=== PATIENT | female | born 1970 | race Caucasian/White ===

== ENCOUNTER 2019-10-16 07:18 | Outpatient (CLI) | payer BC, SELFPAY ==
--- NOTE | ~2019-10-16 | MR_ITS ---
EXAMINATION: MR brain/brain stem wo/w con DATE: 10/16/2019 09:27 INDICATION: Dizziness TECHNIQUE: Magnetic resonance imaging (MRI) of the brain and brainstem was performed without and with 15 cc MultiHance intravenous contrast. Sequences included sagittal and axial T1-weighted SE, axial d iffusion-weighted FS SE, axial T2*-weighted GRE, axial T2-weighted FLAIR Propeller, and axial T2-weig hted Propeller. Apparent diffusion coefficient (ADC) maps were created. COMPARISON: CT brain dated 11/29/2014 FINDINGS: Normal brain parenchymal volume. Normal cavanaugh-white differentiation. No evidence for acute i nfarction, hemorrhage, mass or mass effect. No abnormal contrast enhancement. There are scattered mil d periventricular and subcortical white matter changes, most likely related to small vessel ischemic disease (microangiopathy). There are are small mucous retention cysts in the frontal sinuses. No vent riculomegaly or midline shift. Midline sagittal images are unremarkable. IMPRESSION: 1. No acute intracranial abnormality. 2: Chronic age-related findings. Reviewed, dictated and finalized at location A.
[2019-10-16 08:49] LABS: Estimated Glomerular Filt Rate > 60
== END 2019-10-16 07:19 | disposition home or self-care (01) ==
LOC: ANHIMG 07:22
PROVIDERS: PCP Internal Medicine; Visit Provider Internal Medicine Rheumatology
DX: R42 Dizziness and giddiness (principal)
CPT/HCPCS: 36415; 70553; A9577

== ENCOUNTER → 2020-03-31 14:36 | Outpatient (CLI) | payer BC, SELFPAY ==
--- NOTE | ~2020-03-31 | MM_ITS ---
EXAMINATION: MM screening [facility] BI w farzaneh HISTORY: Screening mammogram TECHNIQUE: Craniocaudal and mediolateral oblique 3-D tomosynthesis images were obtained and synthetic 2-D images were generated. CAD analysis was submitted and interpreted. COMPARISON: 08/15/2018, 07/23/2018, 11/14/2014 BREAST PARENCHYMAL COMPOSITION: The breasts are heterogeneously dense, which may obscure small masses . FINDINGS: There is no evidence of suspicious mass, calcification, or architectural distortion to sugg est malignancy in either breast. There has been no suspicious interval change. IMPRESSION: 1. No mammographic evidence of malignancy. 2. Recommend routine screening mammography in one year. BI-RADS Category 1: Negative Reviewed, dictated and finalized at location A.
== END ==
PROVIDERS: PCP Internal Medicine; Visit Provider Nurse Practitioner Obstetrics & Gynecology
DX: Z12.31 Encounter for screening mammogram for malignant neoplasm of breast (principal)
CPT/HCPCS: 77063; 77067

== ENCOUNTER 2020-04-07 00:49 | Outpatient (CLI) | payer BC, SELFPAY ==
[2020-04-07 18:12] LABS: SARS-CoV-2 RNA PCR Negative
== END 2020-04-07 00:50 | disposition home or self-care (01) ==
LOC: ANHCOVIDDT 00:49
PROVIDERS: PCP Internal Medicine; Visit Provider Obstetrics & Gynecology
DX: Z01.812 Encounter for preprocedural laboratory examination (principal); Z20.828 Contact with and (suspected) exposure to other viral communicable diseases
CPT/HCPCS: 87635; C9803; U0003

== ENCOUNTER 2020-04-09 02:58 | Day surgery (SDC) | payer BC, SELFPAY ==
[2020-03-26 13:10] VITALS: BMI 24.3
[2020-04-09] VITALS (8 sets, daily range): BP systolic 101–127; BP diastolic 64–80; PULSE 82–97; RESP 12–20; TEMP 36.1–36.7; O2SAT 99–100
[2020-04-09] MEDS: LACTATED RINGERS 1,000 ML 30 ML IV CONT (09:25)
[2020-04-09 09:36] LABS: Hematocrit 38.2 % (37.0-47.0)
--- NOTE | 2020-04-09 09:38 | P.PNAN_ITS ---
Anes - Initial Pre Proc Eval Procedure: Operation Date: 04/09/20 10:45 Proposed Procedures p Laparoscopic Tubal Ligation - Willem Patel MD s Hysteroscopy, Endometrial Ablation With Marielos - Willem Patel MD Date/Time: 04/09/20 09:38 Surgeon: Willem Patel MD Pre Op Diagnosis: Menorrhagia Patient Data Age: 50 Gender: F Height: 5 ft 8 in Weight: 72.57 kg Allergies Allergy/AdvReac Type Severity Reaction Status Date / Time Sulfa (Sulfonamide Allergy Mild Rash Unverified 03/26/20 13:10 Antibiotics) Home Medications Medication Instructions Recorded Confirmed Type loratadine 10 mg PO DAILY 03/26/20 03/26/20 History lorazepam 0.5 mg PO DIRECTED PRN 03/26/20 03/26/20 History Laboratory Tests 04/09/20 09:19 Hgb 13.0 g/dL g/dL (12.0-15.0) Hct 38.2 % % (37.0-47.0) Patient hx anesthesia problems: none Family hx anesthesia problems: none [facility] Past Medical History Medical History (Updated 04/09/20 @ 09:41 by Kale Carrasco MD) Anxiety Fibromyalgia Social History Social History Smoking status: Never smoker Spiritual care concerns: No Anes - Eval Final PreProcedure Day of Procedure 04/09/20 09:38 Patient weight: normal Heart: regular rate and rhythm Lungs: clear to auscultation Airway: Mallampati scale class II Neurological: alert and oriented Last oral intake: >/= 8 hours ASA classification: II Emergent: no Anesthetic plan: proceed Anesthesia type and monitoring: general ETT and standard monitoring Informed Consent: The patient's anesthetic plan and its attendant risks and benefits were discussed with the patient/family/POA. Questions were solicited and answers provided to the satisfaction of the patient/family/POA.
[2020-04-09] MEDS: KETOROLAC 15 MG/ML VIAL (*BKC) IV PUSH (09:39)
[2020-04-09] MEDS: ACETAMINOPHEN 500 MG TABLET 1000 MG PO (09:39)
--- NOTE | 2020-04-09 10:24 | WPDHPUPDATE1 ---
History and Physical Update Update Date/Time: 04/09/20 10:24 with the above mentioned procedures, a cauterization of the cervix will be performed. History and Physical has been reviewed, including an updated exam of the patient. There are NO changes in the patient's condition. Risks, benefits, and alternatives have been discussed and questions answered. Patient agrees to proceed with procedure.
--- NOTE | 2020-04-09 12:08 | P.OP_ITS ---
Procedure Note - Detailed Date of procedure: 04/09/20 Pre-op diagnosis: Menorrhagia Cervical BLeeding, Unwanted Fertility Post-op diagnosis: same Procedure performed: Laparoscopic bilateral tubal ligation, endometrial ablation with hysteroscopy, resection of endocervix. Description of procedure: Patient was taken the operating room. She has prepped draped in the dorsal lithotomy position after induction of general anesthesia. A 5 mm abdominal incision was made in left upper quadrant of the abdomen with scalpel. A 5 mm trocars inserted the intra-abdominal cavity under direct visualization of the scope. Pneumoperitoneum was achieved. A 5 mm periumbilical incision was made using a scalpel on the abdominal scan. A 5 mm trocar was inserted the intra-abdominal cavity under visualization of the scope. The fallopian tube was grasped with the bipolar cautery in the ampullary region. It was completely desiccated in a 1.5 cm area of the fallopian tube. This was performed in identical fashion on the contralateral side. The instruments were withdrawn. The pneumoperitoneum was reduced. The trocars were removed. The skin was closed with subcuticular 4 Monocryl. This incisions were covered with Dermabond. Our attention was then turned to the endometrial ablation portion of the procedure. A speculum was placed in the vagina. The cervix was grasped with a tenaculum. The cervix was dilated to approximately 8 mm with Oliveira dilators. The hysteroscope was inserted. And the below findings were noted. Measurements of the cervix were taken using the uterine sound and the hysteroscope. The intr auterine cavity measurements were entered into the hand piece of the device. The device was inserted the intrauterine cavity. The array was expanded. The balloon cuff was inflated. The uterus was airtight. The energy and safety cycles within initiated. They were completed under 3 minutes. The balloon cuff was collapsed, the array was collapsed, and the device was removed the uterine cavity. the hysteroscope was reinserted and the cavity was well desiccated, it was clearly observed. Hysteroscope was withdrawn. The tenaculum was removed. Using a long squared LEEP electrode , the endocervix was excised. Two passes were made with the electrode. 1 was more superficial , but extended about 1 cm into the cervix. The 2nd extended the original incision down into the endocervix. The ball cautery was then used to cauterize all cut surfaces. Monsel's was packed into the cervix. The cervix was hemostatic. The speculum was removed. The patient tolerated the procedure well. She was taken to recover room in stable condition. Anesthesia: GETA Surgeon: Willem Patel MD Estimated blood loss (mL): 20 Drains: No Packing: No Pathology: none sent Complications: No immediate complications Condition: stable Disposition: PACU Findings: Normal female pelvic anatomy. External surface of the cervix appeared normal. The internal surface of the cervix was friable when examined with the hysteroscope. The intrauterine cavity appeared normal. The fallopian tubes ovaries and uterus appeared normal.
[2020-04-09] MEDS: oxyCODONE HCL (*CRX) 5 MG TAB IR PO (13:11)
[2020-04-09] MEDS: fentaNYL CITRATE INJ (*CRX) 100 MCG/2 ML VIAL 25 MCG IV PUSH (13:33)
== END 2020-04-09 14:18 | disposition home or self-care (01) ==
PROVIDERS: Anesthesiology; PCP Internal Medicine; Visit Provider Obstetrics & Gynecology
PROC: (CPT 58671; principal; 2020-04-09 10:45)
PROC: 0U5B8ZZ Destruction of Endometrium, Via Natural or Artificial Opening Endoscopic (ICD-10-PCS; CPT 58563; 2020-04-09 10:45)
DX: N92.0 Excessive and frequent menstruation with regular cycle (principal); Z30.2 Encounter for sterilization; R87.612 Low grade squamous intraepithelial lesion on cytologic smear of cervix (LGSIL); M79.7 Fibromyalgia; F41.9 Anxiety disorder, unspecified
CPT/HCPCS: 58670; 57522; 58563; 36415; 85014; 85018; 88305; A9270; J0330; J1100; J1885; J2250; J2405; J2704; J3010; J7030; J7120

== ENCOUNTER 2020-04-30 12:58 | Outpatient (CLI) | payer BC, SELFPAY ==
[2020-04-30 22:40] LABS: SARS-CoV-2 RNA PCR Negative
== END 2020-04-30 12:59 | disposition home or self-care (01) ==
LOC: CHSLAB 13:00
PROVIDERS: PCP Internal Medicine; Visit Provider Internal Medicine
DX: Z20.828 Contact with and (suspected) exposure to other viral communicable diseases (principal)
CPT/HCPCS: 87635; C9803; U0003

== ENCOUNTER 2021-04-23 07:31 | Outpatient (CLI) | payer OTHER, SELFPAY ==
[2021-04-23 07:43] LABS: Basophils Absolute Auto 0.03 K/mm3 (0.00-0.10); Basophils Percent Auto 0.6 % (0.0-1.0); Eosinophils Absolute Auto 0.13 K/mm3 (0.02-0.50); Eosinophils Percent Auto 2.5 % (1.0-6.0); Hematocrit 41.2 % (35.0-49.0); Hemoglobin 13.8 g/dL (12.0-15.0); Immature Granulocyte Absolute 0.01 K/mm3 (0.00-0.00); Immature Granulocyte Percent A 0.2 % (0.0-0.0); Lymphocytes Absolute Auto 1.65 K/mm3 (1.10-4.50); Mean Corpuscular HGB Conc 33.5 g/dL (32.0-36.0); Mean Corpuscular Hemoglobin 32.3 pg (27.0-31.0); Mean Corpuscular Volume 96.5 fL (78.0-102.0); Mean Platelet Volume 9.2 fl (9.2-11.8); Monocytes Absolute Auto 0.32 K/mm3 (0.10-0.90); Monocytes Percent Auto 6.2 % (2.0-11.0); Neutrophils Percent Auto 58.5 % (50.0-70.0); Platelet Count Result 252 K/mm3 (150-420); Red Blood Count 4.27 M/mm3 (4.20-5.40); Red Cell Distribution Width 12.7 % (11.6-14.4); White Blood Count 5.2 K/mm3 (4.8-10.8)
[2021-04-23 08:48] LABS: Alanine Aminotransferase 37 U/L (14-59); Albumin Level 3.6 g/dL (3.4-5.0); Alkaline Phosphatase 80 U/L (46-116); Anion Gap 9 mmol/L (8-16); Aspartate Amino Transferase 26 U/L (15-37); Bilirubin,Total 0.4 mg/dL (0.00-1.00); Blood Urea Nitrogen 12 mg/dL (7-18); Calcium 8.8 mg/dL (8.5-10.1); Carbon Dioxide 28 mmol/L (21-32); Chloride 101 mmol/L (98-108); Cholesterol 212 mg/dL (0-200); Estimated Glomerular Filt Rate 60; Glucose 82 mg/dL (70-99); HDL Direct 71 mg/dL (40-60); LDL Cholesterol Calculated 129 mg/dL (<130); Osmolality Calculated 284 mOsm/kg (285-295); Potassium 4.4 mmol/L (3.5-5.1); Sodium 138 mmol/L (136-145); Total Protein 6.9 g/dL (6.4-8.2); Triglycerides 62 mg/dL (0-150); Vitamin B12 751 pg/mL (193-986)
[2021-04-23 08:50] LABS: Folic Acid > 20.0 ng/mL (8.6->20); Thyroid Stimulating Hormone Reflex 2.21 u/IU/mL (0.36-3.74)
[2021-04-27 03:11] LABS: Vitamin D 25 Hydroxy 37 ng/mL (30-100)
== END 2021-04-23 07:32 | disposition home or self-care (01) ==
LOC: CHSLAB 07:34
PROVIDERS: PCP Internal Medicine; Visit Provider Psychiatry & Neurology Psychiatry
DX: F33.2 Major depressive disorder, recurrent severe without psychotic features (principal)
CPT/HCPCS: 36415; 80053; 80061; 82306; 82607; 82746; 84443; 85025

== ENCOUNTER → 2021-05-07 09:37 | Outpatient (CLI) | payer OTHER, SELFPAY ==
--- NOTE | ~2021-05-07 | MM_ITS ---
EXAMINATION: MM screening [facility] BI w farzaneh HISTORY: Screening TECHNIQUE: Craniocaudal and mediolateral oblique 3-D tomosynthesis images were obtained and synthetic 2-D images were generated. CAD analysis was submitted and interpreted. COMPARISON: Comparison to multiple prior studies sequentially, with oldest reviewed study dated 06/03. BREAST PARENCHYMAL COMPOSITION: There are scattered areas of fibroglandular density. FINDINGS: There is no evidence of suspicious mass, calcification, or architectural distortion to sugg est malignancy in either breast. There has been no suspicious interval change. IMPRESSION: 1. No mammographic evidence of malignancy. 2. Recommend routine screening mammography in one year. BI-RADS Category 1: Negative Reviewed, dictated and finalized at location A.
== END ==
PROVIDERS: Visit Provider Nurse Practitioner Obstetrics & Gynecology
DX: Z12.31 Encounter for screening mammogram for malignant neoplasm of breast (principal)
CPT/HCPCS: 77063; 77067

== ENCOUNTER 2021-11-09 14:24 | Outpatient (CLI) | payer OTHER, SELFPAY ==
--- NOTE | ~2021-11-09 | XR_ITS ---
EXAMINATION: XR chest 2V DATE: 11/09/2021 14:42 INDICATION: Cough TECHNIQUE: PA and lateral views of the chest are obtained. COMPARISON: None available FINDINGS: The lungs are free of acute opacities. There is no pleural effusion or pneumothorax. The ca rdiomediastinal silhouette is normal. There is mild thoracic spondylosis. IMPRESSION: 1. No acute cardiopulmonary abnormality. Reviewed, dictated and finalized at location A.
[2021-11-09 15:00] LABS: Basophils Absolute Auto 0.03 K/mm3 (0.00-0.10); Basophils Percent Auto 0.3 % (0.0-1.0); Eosinophils Absolute Auto 0.37 K/mm3 (0.02-0.50); Hematocrit 40.9 % (35.0-49.0); Hemoglobin 13.6 g/dL (12.0-15.0); Immature Granulocyte Absolute 0.05 K/mm3 (0.00-0.00); Immature Granulocyte Percent A 0.5 % (0.0-0.0); Lymphocytes Absolute Auto 2.11 K/mm3 (1.10-4.50); Lymphocytes Percent Auto 22.7 % (18.0-42.0); Mean Corpuscular HGB Conc 33.3 g/dL (32.0-36.0); Mean Corpuscular Hemoglobin 32.5 pg (27.0-31.0); Mean Corpuscular Volume 97.6 fL (78.0-102.0); Mean Platelet Volume 8.8 fl (9.2-11.8); Monocytes Absolute Auto 0.64 K/mm3 (0.10-0.90); Monocytes Percent Auto 6.9 % (2.0-11.0); Neutrophils Absolute Auto 6.1 K/mm3 (1.7-7.2); Neutrophils Percent Auto 65.6 % (50.0-70.0); Platelet Count Result 259 K/mm3 (150-420); Red Blood Count 4.19 M/mm3 (4.20-5.40); Red Cell Distribution Width 12.3 % (11.6-14.4); White Blood Count 9.3 K/mm3 (4.8-10.8)
[2021-11-09 15:17] LABS: Alanine Aminotransferase 46 U/L (14-59); Albumin Level 3.6 g/dL (3.4-5.0); Alkaline Phosphatase 104 U/L (46-116); Anion Gap 6 mmol/L (8-16); Aspartate Amino Transferase 29 U/L (15-37); Bilirubin,Total 0.3 mg/dL (0.00-1.00); Blood Urea Nitrogen 10 mg/dL (7-18); Carbon Dioxide 28 mmol/L (21-32); Chloride 100 mmol/L (98-108); Estimated Glomerular Filt Rate > 60; Glucose 84 mg/dL (70-99); Osmolality Calculated 276 mOsm/kg (285-295); Potassium 3.9 mmol/L (3.5-5.1); Sodium 134 mmol/L (136-145); Total Protein 7.5 g/dL (6.4-8.2)
== END 2021-11-09 14:25 | disposition home or self-care (01) ==
LOC: CHSIMG 14:25
PROVIDERS: PCP Internal Medicine; Visit Provider Internal Medicine
DX: R05.9 Cough, unspecified (principal)
CPT/HCPCS: 36415; 71046; 80053; 85025

== ENCOUNTER 2022-01-09 13:06 | Emergency (ER) | payer OTHER, SELFPAY ==
[2022-01-09 13:15] VITALS: BP 102/49; PULSE 85; RESP 19; TEMP 36.7; O2SAT 100
--- NOTE | 2022-01-09 13:19 | ED.UPPEXIN ---
HPI - Extremity Injury (Upper) General Stated Complaint: fever/fatigue Time Seen by Provider: 01/09/22 13:19 Related Data Home Medications Medication Instructions Recorded Confirmed loratadine 10 mg tablet 10 mg PO DAILY 03/26/20 04/09/20 lorazepam 0.5 mg tablet 0.5 mg PO DIRECTED PRN Anxiety 03/26/20 04/09/20 Allergies Allergy/AdvReac Type Severity Reaction Status Date / Time Sulfa (Sulfonamide Allergy Mild Rash Verified 04/09/20 10:01 Antibiotics) PMFSH Past Medical History Medical History (Updated 04/09/20 @ 09:41 by Kale Carrasco MD) Anxiety Fibromyalgia Social History Social History Smoking status: Never smoker Spiritual care concerns: No Discharge Plan Discharge Prescriptions: No Action lorazepam 0.5 mg tablet 0.5 mg PO DIRECTED PRN (Reason: Anxiety) loratadine 10 mg Tablet 10 mg PO DAILY hydrocodone-acetaminophen 5-325 mg tablet 1 - 2 tablet PO Q4H PRN (Reason: pain) Qty: 20 0RF Follow-up/Referrals: Rhina Gabriel MD [Primary Care Provider] -
[2022-01-09 13:59] LABS: Influenza A QL RT-PCR Negative (Negative); Influenza B QL RT-PCR Negative (Negative); SARS-CoV-2 RNA PCR Positive (Negative)
--- NOTE | 2022-01-09 14:04 | ED.URI ---
HPI - URI/Sore Throat General Chief Complaint: Fever Stated Complaint: fever/fatigue Time Seen by Provider: 01/09/22 13:19 Source: patient and RN notes reviewed Mode of arrival: ambulatory Limitations: no limitations History of Present Illness MD elicited complaint: fever, sore throat and nasal congestion Onset (ago): day(s) (1) Consistency: constant Severity: moderate Able to tolerate fluids by mouth: Yes Exacerbating factors: nothing Relieving factors: nothing Context: sick contacts Associated symptoms: fever, chills, myalgias, headache, nasal congestion and sore throat Treatments prior to arrival: none Related Data Home Medications Medication Instructions Recorded Confirmed buspirone 15 mg tablet 1 tablet PO DAILY 01/09/22 01/09/22 quetiapine 25 mg tablet 1.5 tablet PO DAILY PRN Anxiety 01/09/22 01/09/22 quetiapine 50 mg tablet 1 tablet PO HS 01/09/22 01/09/22 venlafaxine 150 mg 1 cap PO DAILY 01/09/22 01/09/22 capsule,extended release 24 hr Allergies Allergy/AdvReac Type Severity Reaction Status Date / Time Sulfa (Sulfonamide Allergy Mild Rash Verified 01/09/22 14:07 Antibiotics) Review of Systems Review of Systems: All systems reviewed & are unremarkable except as noted in HPI and below Respiratory: Respiratory: Denies cough and Denies dyspnea Gastrointestinal: Gastrointestinal: Denies diarrhea, Denies nausea and Denies vomiting PMFSH Past Medical History Medical History (Updated 01/09/22 @ 14:07 by Oliverio Potter MD) Anxiety Fibromyalgia Social History Social History Smoking status: Never smoker Spiritual care concerns: No Exam Const: General: healthy appearing, no acute distress and alert Nutritional Appearance: well nourished Orientation/consciousness: patient oriented x3 Other: 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 HENMT: Head: normal to inspection Ears: external ears normal Eyes: Conjunctivae: conjunctivae normal Pupils: Equal, round and reactive pupils present EOM: EOMs intact bilaterally Neck: Neck: normal visual inspection Resp: Effort & Inspection: normal respiratory effort Auscultation: clear to auscultation bilaterally Cardio: Rate: regular rate Rhythm: regular rhythm GI: GI Palp: Yes Soft to palpation and No Tenderness to palpation present (GI) Auscultation: normal bowel sounds Back/Spine/Pelvis: Cervical Spine: cervical ROM normal Thoracic/Lumbar Spine: thoraco-lumbar ROM normal Skin: General skin exam: normal color Rashes: no rashes Neuro: General: patient oriented x3, moves all extremities, no focal motor deficits and CN's II-XI intact bilaterally Speech: normal speech Gait exam (Neuro): Normal gait present Extrem: General: normal to inspection and no clubbing, cyanosis or edema Psych: Mental Status: mental status grossly normal Affect: normal affect Attitude: cooperative Course Vital Signs Vital signs: Vital Signs Temperature 36.7 C 01/09/22 13:15 Pulse Rate 85 01/09/22 13:15 Respiratory Rate 19 01/09/22 13:15 Blood Pressure 102/49 L 01/09/22 13:15 Pulse Oximetry 100 01/09/22 13:15 Oxygen Delivery Room Air 01/09/22 13:15 Temperature 36.7 C 01/09/22 14:19 Pulse Rate 82 01/09/22 14:19 Respiratory Rate 20 01/09/22 14:19 Blood Pressure 110/50 L 01/09/22 14:19 Pulse Oximetry 100 01/09/22 14:19 Oxygen Delivery Room Air 01/09/22 14:19 MDM - URI/Sore Throat Lab Data Attestation: I reviewed the patient's lab results. Labs: Lab Results 01/09/22 Range/Units 13:20 Influenza A (RT-PCR) Negative (Negative) Influenza B (RT-PCR) Negative (Negative) SARS-CoV-2 RNA (RT-PCR) Positive A (Negative) Discharge Plan Discharge Clinical Impression: COVID-19 Patient Disposition: Home, Self-Care Condition: Stable Instructions: COVID-19 (Coronavirus Disease 2019) (ED) Additional Instructions: drink plenty o
[2022-01-09 14:19] VITALS: BP 110/50; PULSE 82; RESP 20; TEMP 36.7; O2SAT 100
== END 2022-01-09 14:23 | disposition home or self-care (01) ==
PROVIDERS: Emergency Provider Emergency Medicine; PCP Internal Medicine
DX: U07.1 COVID-19 (principal)
CPT/HCPCS: 87502; 99283; C9803; U0003; U0005

== ENCOUNTER 2022-02-20 07:55 | Outpatient (CLI) | payer OTHER, SELFPAY ==
[2022-02-20 08:18] LABS: Basophils Absolute Auto 0.03 K/mm3 (0.00-0.10); Basophils Percent Auto 0.5 % (0.0-1.0); Eosinophils Percent Auto 3.7 % (1.0-6.0); Hematocrit 36.9 % (35.0-49.0); Hemoglobin 12.4 g/dL (12.0-15.0); Immature Granulocyte Absolute 0.03 K/mm3 (0.00-0.00); Immature Granulocyte Percent A 0.5 % (0.0-0.0); Lymphocytes Percent Auto 31.1 % (18.0-42.0); Mean Corpuscular HGB Conc 33.6 g/dL (32.0-36.0); Mean Corpuscular Hemoglobin 33.5 pg (27.0-31.0); Mean Corpuscular Volume 99.7 fL (78.0-102.0); Monocytes Percent Auto 7.3 % (2.0-11.0); Neutrophils Absolute Auto 3.1 K/mm3 (1.7-7.2); Neutrophils Percent Auto 56.9 % (50.0-70.0); Platelet Count Result 227 K/mm3 (150-420); Red Cell Distribution Width 13.1 % (11.6-14.4); White Blood Count 5.5 K/mm3 (4.8-10.8)
[2022-02-20 08:33] LABS: Hemoglobin A1C 5.3 % (<5.7)
[2022-02-20 09:12] LABS: Alanine Aminotransferase 31 U/L (14-59); Albumin Level 3.4 g/dL (3.4-5.0); Alkaline Phosphatase 83 U/L (46-116); Anion Gap 5 mmol/L (8-16); Aspartate Amino Transferase 21 U/L (15-37); Bilirubin,Total 0.4 mg/dL (0.00-1.00); Blood Urea Nitrogen 15 mg/dL (7-18); Calcium 8.7 mg/dL (8.5-10.1); Carbon Dioxide 29 mmol/L (21-32); Chloride 104 mmol/L (98-108); Cholesterol 203 mg/dL (0-200); Estimated Glomerular Filt Rate > 60; Folic Acid 14.1 ng/mL (8.6->20); Glucose 86 mg/dL (70-99); HDL Direct 71 mg/dL (40-60); LDL Cholesterol Calculated 114 mg/dL (<130); Osmolality Calculated 285 mOsm/kg (285-295); Potassium 3.9 mmol/L (3.5-5.1); Sodium 138 mmol/L (136-145); Thyroid Stimulating Hormone 2.52 uIU/mL (0.36-3.74); Total Protein 6.8 g/dL (6.4-8.2); Triglycerides 91 mg/dL (0-150); Vitamin B12 684 pg/mL (193-986)
[2022-02-23 16:16] LABS: Vitamin D 25 Hydroxy 39 ng/mL (30-100)
[2022-02-24 12:27] LABS: Insulin Level Total 2.7 uIU/mL (<=19.6)
== END 2022-02-20 07:56 | disposition home or self-care (01) ==
LOC: CHSLAB 07:56
PROVIDERS: PCP Internal Medicine; Visit Provider Psychiatry & Neurology Psychiatry
DX: F33.2 Major depressive disorder, recurrent severe without psychotic features (principal)
CPT/HCPCS: 36415; 80053; 80061; 82306; 82607; 82746; 83036; 83525; 84443; 85025

== ENCOUNTER 2022-03-17 15:08 | Outpatient (CLI) | payer OTHER, SELFPAY ==
--- NOTE | ~2022-03-17 | US_ITS ---
EXAMINATION: US thyroid DATE: 03/17/2022 15:47 INDICATION: Enlarged thyroid TECHNIQUE: Multiple ultrasound images of the thyroid were obtained. COMPARISON: None. FINDINGS: The right thyroid lobe measures 4.9 x 1.3 x 1.3 cm. The left thyroid lobe measures 3.8 x 0.9 x 0.8 c m. Thyroid isthmus measures 405 mm in maximal thickness. No discrete nodules identified. There is nor mal echotexture, echogenicity and vascular flow throughout the thyroid gland. Normal-sized left jugul ar chain lymph nodes measuring up to 5-6 mm in maximal short axis diameter IMPRESSION: 1. Normal thyroid. Reviewed, dictated and finalized at location A. IMPRESSION: 1. Normal thyroid.
== END 2022-03-17 15:09 | disposition home or self-care (01) ==
LOC: CHSIMG 15:09
PROVIDERS: PCP Internal Medicine; Visit Provider Internal Medicine
DX: R22.1 Localized swelling, mass and lump, neck (principal)
CPT/HCPCS: 76536

== ENCOUNTER → 2022-05-14 09:57 | Outpatient (CLI) | payer OTHER, SELFPAY ==
--- NOTE | ~2022-05-14 | MM_ITS ---
EXAMINATION: MM screening [facility] BI w farzaneh HISTORY: Screening mammogram TECHNIQUE: Craniocaudal and mediolateral oblique 3-D tomosynthesis images were obtained and synthetic 2-D images were generated. Bilateral rotated lateral CC views. CAD analysis was submitted and interp reted. COMPARISON: 05/2021, 03/23/2020 bilateral screening mammogram examinations BREAST PARENCHYMAL COMPOSITION: There are scattered areas of fibroglandular density. FINDINGS: Stable fibroglandular asymmetry. There is no evidence of suspicious mass, calcification, or architectural distortion to suggest malignancy in either breast. There has been no suspicious interv al change. IMPRESSION: 1. No mammographic evidence of malignancy. 2. Recommend routine screening mammography in one year. BI-RADS Category 2: Benign finding(s). Reviewed, dictated and finalized at location A. 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
== END ==
PROVIDERS: PCP Internal Medicine; Visit Provider Nurse Practitioner Obstetrics & Gynecology
DX: Z12.31 Encounter for screening mammogram for malignant neoplasm of breast (principal)
CPT/HCPCS: 77063; 77067

== ENCOUNTER → 2023-07-06 14:48 | Outpatient (CLI) | payer OTHER, SELFPAY ==
--- NOTE | ~2023-07-06 | MM_ITS ---
EXAMINATION: MM screening [facility] w farzaneh HISTORY: Screening mammogram, family history of breast cancer in her mother. TECHNIQUE: Craniocaudal and mediolateral oblique 3-D tomosynthesis images were obtained and synthetic 2-D images were generated. CAD analysis was submitted and interpreted. COMPARISON: 05/14/2022, 05/07/2021, 03/31/2020 BREAST PARENCHYMAL COMPOSITION: There are scattered areas of fibroglandular density. FINDINGS: No suspicious mass, calcification, or architectural distortion are identified in either lorenzo ast to suggest malignancy. There has been no suspicious interval change. IMPRESSION: 1. No mammographic evidence of malignancy. 2. Recommend routine screening mammography in one year. BI-RADS Category 1: Negative Reviewed, dictated and finalized at location A. 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
== END ==
PROVIDERS: PCP Nurse Practitioner Obstetrics & Gynecology; Visit Provider Nurse Practitioner Obstetrics & Gynecology
DX: Z12.31 Encounter for screening mammogram for malignant neoplasm of breast (principal)
CPT/HCPCS: 77063; 77067

== ENCOUNTER 2024-02-01 12:40 | Outpatient (CLI) | payer OTHER, SELFPAY ==
--- NOTE | 2024-02-01 14:30 | NEURO_ITS ---
Impression: # Complains of left upper extremity discomfort. Not diabetic. # Normal Nerve Conduction Study, no Carpal Tunnel Syndrome or ulnar neuropathy. # Normal needle/EMG exam. # Clinical correlation recommended. Nerve Conduction Studies Anti Sensory Summary Table Stim Site NR Peak (ms) P-T Amp (?V) Site1 Site2 Delta-P (ms) Dist (cm) Emmanuel (m/s) Left Median Anti Sensory (2-3nd Digit) Wrist 2.7 80.4 Wrist 2-3nd Digit 2.7 14.0 52 Wrist 2.6 86.7 Wrist 2-3nd Digit 2.7 14.0 52 Left Radial Anti Sensory (Base 1st Digit) Wrist 2.0 42.5 Wrist Base 1st Digit 2.0 0.0 Left Ulnar Anti Sensory (5th Digit) Wrist 2.5 65.0 Wrist 5th Digit 2.5 14.0 56 Motor Summary Table Stim Site NR Onset (ms) O-P Amp (mV) Site1 Site2 Delta-0 (ms) Dist (cm) Emmanuel (m/s) Left Median Motor (Abd Poll Brev) Wrist 2.9 6.0 Elbow Wrist 4.8 29.0 60 Elbow 7.7 5.0 Left Ulnar Motor (Abd Dig Minimi) Wrist 2.7 7.1 A Elbow Wrist 5.1 30.0 59 A Elbow 7.8 5.7 F Wave Studies NR F-Lat (ms) L-R F-Lat (ms) Left Median (Mrkrs) (Abd Poll Brev) 25.70 Left Ulnar (Mrkrs) (Abd Dig Min) 26.43 EMG Side Muscle Nerve Root Ins Act Fibs Amp Dur Recrt Comment Left 1stDorInt Ulnar C8-T1 Nml Nml Nml Nml Nml Left Ext Indicis Radial (Post Int) C7-8 Nml Nml Nml Nml Nml Left Ext Digitorum Radial (Post Int) C7-8 Nml Nml Nml Nml Nml Left BrachioRad Radial C5-6 Nml Nml Nml Nml Nml Left PronatorTeres Median C6-7 Nml Nml Nml Nml Nml Left Abd Poll Brev Median C8-T1 Nml Nml Nml Nml Nml Left ABD Dig Min Ulnar C8-T1 Nml Nml Nml Nml Nml Left Biceps Musculocut C5-6 Nml Nml Nml Nml Nml Left Triceps Radial C6-7-8 Nml Nml Nml Nml Nml Left Deltoid Axillary C5-6 Nml Nml Nml Nml Nml MTDD
== END 2024-02-01 12:41 | disposition home or self-care (01) ==
PROVIDERS: PCP Nurse Practitioner Obstetrics & Gynecology; Visit Provider Internal Medicine Rheumatology
DX: G54.2 Cervical root disorders, not elsewhere classified (principal)
CPT/HCPCS: 95886; 95909

== ENCOUNTER 2024-02-13 12:51 | Outpatient (CLI) | payer OTHER, SELFPAY ==
--- NOTE | ~2024-02-13 | MR_ITS ---
EXAMINATION: MR cervical spine wo/w con DATE: 02/13/2024 13:47 INDICATION: Left cervical root neuropathy. Neck pain. Left arm pain. TECHNIQUE: Magnetic resonance imaging (MRI) of the cervical spine was performed without and with 13 m L MultiHance intravenous contrast. COMPARISON: None. FINDINGS: There is mild kyphosis of cervical spine. Vertebral body heights are normal. There is 2 mm retrolisthesis of C4 on C5. There is moderately decreased disc height at C4-C5 and mildly decreased d isc height at C5-C6 and C6-C7. The spinal cord signal intensity is normal. The following disc levels are specifically discussed: C2-C3: The disc does not extend beyond the endplate margin. There is no uncovertebral joint osteoarth ritis. There is mild bilateral facet joint osteoarthritis. There is no neural foraminal stenosis. The re is no central canal stenosis. C3-C4: There is a central extrusion. There is mild bilateral uncovertebral joint osteoarthritis. Ther e is no facet joint osteoarthritis. There is mild right neural foraminal stenosis. There is mild cent ral canal stenosis with ventral indentation of the spinal cord. C4-C5: The disc is bulging. There is severe bilateral uncovertebral joint osteoarthritis. There is mi ld bilateral facet joint osteoarthritis. There is moderate bilateral neural foraminal stenosis. There is mild central canal stenosis with ventral indentation of the spinal cord. C5-C6: The disc is bulging. There is mild bilateral uncovertebral joint osteoarthritis. There is mild bilateral facet joint osteoarthritis. There is mild bilateral neural foraminal stenosis. There is mi ld central canal stenosis. C6-C7: The disc is bulging with superimposed right central extrusion. There is mild bilateral uncover tebral joint osteoarthritis. There is mild bilateral facet joint osteoarthritis. There is mild right neural foraminal stenosis. There is mild central canal stenosis. C7-T1: There is a central protrusion. There is no uncovertebral joint osteoarthritis. There is mild l ateral facet joint osteoarthritis. There is no neural foraminal stenosis. There is no central canal s tenosis. IMPRESSION: 1. Moderate cervical spondylosis. Reviewed, dictated and finalized at location A.
== END 2024-02-13 12:52 | disposition home or self-care (01) ==
LOC: ANHIMG 12:52
PROVIDERS: PCP Nurse Practitioner Obstetrics & Gynecology; Visit Provider Internal Medicine Rheumatology
DX: M47.812 Spondylosis without myelopathy or radiculopathy, cervical region (principal)
CPT/HCPCS: 72156; A9577

== ENCOUNTER 2024-05-28 09:12 | Outpatient (CLI) | payer OTHER, SELFPAY ==
--- NOTE | ~2024-05-28 | XR_ITS ---
XR sacrum coccyx min 2V Ordering provider: Thompson Christensen MD History: . M53.3 - Sacrococcygeal disorders, not elsewhere classified . Comparison: None. FINDINGS: BONES: Highly suggestive fracture in the distal end of the last coccygeal segment. Degenerative siddiqi ges of the spine. JOINTS: The sacroiliac joint spaces are normal. SOFT TISSUES: Normal. IMPRESSION: Highly suggestive fracture in distal segment of the coccyx. Follow-up with clinical correlation advis ed. Reviewed, dictated and finalized at location A. 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 Follow-up with clin ical correlation advised.
== END 2024-05-28 09:13 | disposition home or self-care (01) ==
PROVIDERS: PCP Internal Medicine; Visit Provider Anesthesiology Pain Medicine
DX: M53.3 Sacrococcygeal disorders, not elsewhere classified (principal)
CPT/HCPCS: 72220

== ENCOUNTER 2024-08-13 07:41 | Outpatient (CLI) | payer OTHER, SELFPAY ==
--- NOTE | ~2024-08-13 | MM_ITS ---
EXAMINATION: MM screening [facility] BI w farzaneh HISTORY: Screening TECHNIQUE: Craniocaudal and mediolateral oblique 3-D tomosynthesis images were obtained and synthetic 2-D images were generated. CAD analysis was submitted and interpreted. COMPARISON: Comparison to multiple prior studies sequentially, with oldest reviewed study dated 07/31. BREAST PARENCHYMAL COMPOSITION: Not dense: There are scattered areas of fibroglandular density. FINDINGS: There is no evidence of suspicious mass, calcification, or architectural distortion to sugg est malignancy in either breast. There has been no suspicious interval change. IMPRESSION: 1. No mammographic evidence of malignancy. 2. Recommend routine screening mammography in one year. BI-RADS Category 1: Negative Reviewed, dictated and finalized at location B. ST FIRE OFFICER
--- OUTSIDE RECORDS SUMMARY | 2024-08-13 07:46 | XMS_ITS | Data Portability ---
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 Cervical radiculopathy, more so on the left versus the right side. 2. CRIS positive in the absence of convincing signs or symptoms of SLE. 3. Osteoarthritis. PLAN: 1. X-rays of the cervical spine today to include flexion and extension views. 2. Schedule EMG nerve conduction testing of the left lower extremity, rule out cervical radiculopathy. 3. May try [id number]-wcnoblc Aleve 220 mg tablets 1-2 tablets up to twice daily with food for analgesic relief. 4. Labs today by order given to the patient, including a repeat screen of her antinuclear antibody, CBC, CMP, Westergren sed rate, CRP, C3 and C4 complement levels and double-stranded DNA antibody. 5. Followup visit in 2 months for recheck. Further recommendations to follow once the results of the above workup are available. I personally spent a total of 33 minutes on the patient on this date of service including both dnqx-xp-pkbb and cgs-mmnt-ys-face time excluding any separately reportable services. nv [email or web address] Not available 01/14/2024 19:18:30 Plan of Treatment Reminders Order Date Submit Date Provider Last Modified By Organization Details Last Modified Time Details Appointments None recorded. Lab CBC 2023 024 [facility], [address] [place] [address], [id number], 4 08:50:16 CMP, serum or plasma 2023 024 [email or web address] [facility], [address] [place] [address], [id number], 4 08:50:16 ESR (erythrocyt e sedimentati on rate), blood 2023 024 [facility], [address] [place] [address], [id number], 4 08:50:16 unlisted lab - CRP ([facility] only) 2023 024 [facility], [address] [place] [address], [id number], 4 08:50:08 CRIS (antinuclea r antibodies) screen, serum 2023 024 [facility], [address] [place] [address], [address], 4 08:50:09 C3 (complement ), serum or plasma 2023 024 [facility], [address] [place] [address], [address], 4 08:50:09 C4 (complement ), serum or plasma 2023 024 [id number] [facility], [address] [place] [address], [address], 4 08:50:09 DNA double strand Ab, QL, serum 2023 024 [email or web address] [facility], [address] [place] [address], [address], 4 08:50:16 Referral None recorded. Procedures None recorded. Surgeries None recorded. Imaging XR, cervical spine, 6 or more view 2023 024 [email or web address] [facility], [address] [place] [address], [address], 4 10:22:54 Medication Orders None recorded. Patient TargetsNo targets recorded. Patient InstructionsNo instructions recorded. Reason for Referral None Reported. Results Created Date Observation Date Name Description Value Unit Range Abnormal Flag Note LastModifiedBy Organization Detail LastModifiedTime 01/13/20 24 01/13/2024 XR, cervi dionna spine , 4 or [address] [address] Teleph one Name: Lizeth Toussaint 0450Ex am Date: 2023 Age: 53Phys ician: Kp gautam MD, [facility] y : 1969Ex aminat ion: XR CERVIC AL 4 OR 5 VIEWS EXAMIN ATION: XR CERVIC AL 4 OR 5 VIEWS HISTOR Y: Left arm numbne ss and tingli ng for one to two months . No known injury . COMPAR WOOD: None. FINDIN GS: 5 views includ ing extens ion and flexio n. There is normal alignm ent of the cervic al spine. No dynami c instab ility. No verteb ral body height loss. Mild disc height loss at C3-C4, C4-C5, C5-C6 and C6-C7 along with small anteri or disc osteop hytes. There is no prever tebral soft tissue swelli ng. Latera l masses of C1 and C2 are well aligne d. Imaged lung apices are clear. IMPRES ELIZABETH: 1. No dynami c instab ility. 2. 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 Electr onical ly signed in Gao cribe by: SANTI Barrera MD on:01/01 9:30 AM cc: Page PAGE [facility] 1 [email or web address] [facility] [address] [place] [address], [address], 01/15/2024 12:29:57 02/17/20 24 02/01/2024 nerve condu ction study /EMG (PROC ) No observ ation record ed. zenia Not Available 2023 10:19:11 02/24/20 24 02/13/2024 MRI, cervi dionna spine , w/wo contr ast No observ ation record ed. [address], [place], [address], 02/24/2024 08:02:56 Result Notes None recorded. Problems Name Problem SNOMED Code Status Onset Date Resolution Date Notes Provider Name and Address Organization Details Recorded Time Anti-nuclea r factor detected 390692387 Active 2023 Melanie Melgar [facility] 4 01:15:54 Left cervical root neuropathy 4061204283240 9106 Active 2023 Catracho Miller MD [address] [place] [address], [address], [facility] 4 09:57:06 Osteoarthri tis 286203400 Active 2023 Catracho Miller MD [address] [place] [address], [address], [facility] 4 09:57:20 Neck pain 86708414 Active 2023 Catracho Miller MD [address] [place] [address], [address], [facility] 4 09:59:06 Problem Notes None recorded. Procedures Surgical History None recorded. Imaging Results Imaging Date Name Status LastModified by Organiz ation Details LastModified Time 01/13/2024 XR, cervical spine, 4 or 5 [email or web address] [address] [place] [address], [address], 01/15/2024 12:29:57 02/01/2024 nerve conduction study/EMG (PROC) completed [facility] Information not available 02/17/2024 10:19:11 02/13/2024 MRI, cervical spine, w/wo contrast completed [address], [place], [address], 02/24/2024 08:02:56 Procedure Notes None recorded. Medical Equipment None Reported. Allergies Allergen ID Allergen Name Allergen Category Reaction Reaction Severity Criticality Documentation Date Start Date Code Code System Note Provider Name and Address Organization Details Recorded Time 396562 Substance with sulfonami de structure and antibacte rial mechanism of action (substanc e) medicatio n hives Not available Not available 08/01/20232022 89927 8003 SNOMED React ion: Hives ; Not Available Not Available Not Available Medications Name Sig Start Date Stop Date Status Note LastModified by Organization Details LastModified Time quetiapine 25 mg tablet TAKE 1/2 TO 1 TABLET BY MOUTH DAILY NEEDED 01/12 completed Not Available Not Available Not Available buspirone 5 mg tablet TAKE 1 TABLET BY MOUTH EVERY DAY DIRECTED active Not Available Not Available No t Available quetiapine 50 mg tablet TAKE 1 TABLET BY MOUTH DAILY AT BEDTIME active Not Available Not Available No t Available Trintellix 20 mg tablet TAKE 1 TABLET BY MOUTH EVERY DAY 01/12 completed Not Available Not Available Not Available Spravato 84 mg (28 mg x 3) nasal spray 01/12 completed Not Available Not Available Not Available Vitals Date Recorded Body weight Heart rate Oxygen saturation Oxygen saturation in Arterial blood by Pulse oximetry Systolic blood pressure Diastolic blood pressure Provider Name and Address Organization Details Last Updated DateTime 4 35893.5 9 g 99 /min 98 % 98 % 122 mm[Hg] 80 mm[Hg] Josee Rivas [facility] 4 09:27:13 Social History Question Answer Notes LastModified by Organizat ion Details LastModified Time Do You Have An Advance Directive? No [email or web address] Information not available 01/06/2024 What Is Your Level Of Alcohol Consumption? Occasional [email or web address] Information not available 01/06/2024 How Many Times Per Week Do You Consume Alcohol? 1-2 Times Per Week [email or web address] Information not available 01/06/2024 What Is Your Level Of Caffeine Consumption? Occasional [email or web address] Information not available 01/06/2024 Are You Currently Employed? 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 Less Than 1 Time Per Week [email or web address] Information not available 01/06/2024 Do You Have A Medical Power Of Boiler Coverer? No [email or web address] Information not available 01/06/2024 What Was The Date Of Your Most Recent Tobacco Screening? 01/13/2024 [email or web address] Information not available 01/06/2024 What Is Your Relationship Status? [email or web address] Information not available 01/06/2024 Do You Use Any Illicit Or Recreational Drugs? No [email or web address] Information not available 01/06/2024 Sex: Unknown Functional Status Question Answer Note LastModified by Organizat ion Details LastModified Time What is your exercise level? Occasional [email or web address] Information not available 01/06/2024 Mental Status None recorded. Family History Relationship Description Onset Age of this Age Resolved Age Notes LastModified by Organization Details LastModified Time Father Malignant neoplastic disease [email or web address] Not available 2023 10:32:51 Father Family history of malignant neoplasm [email or web address] Not available 2023 19:27:08 Father Hypertensive disorder [email or web address] Not available 2023 19:27:08 Mother Malignant neoplastic disease [email or web address] Not available 2023 10:32:51 Mother Family history of malignant neoplasm [email or web address] Not available 2023 19:27:08 Unspecified Relation Essential hypertension [email or web address] Not available 09/2023 10:33:10 Maternal Grandfather Family history of malignant neoplasm [email or web address] Not available 2023 19:27:08 Paternal Grandfather Heart disease [email or web address] Not available 2023 19:27:08 Paternal Grandfather Hypertensive disorder [email or web address] Not available 2023 19:27:08 Paternal Grandmother Heart disease [email or web address] Not available 2023 19:27:08 Paternal Grandmother Hypertensive disorder [email or web address] Not available 2023 19:27:08 Paternal Grandmother Hypercholest erolemia [email or web address] Not available 2023 19:27:08 Medical History Condition Response Diabetes N Anxiety Disorder Y Bleeding Disorder N Attention-deficit Hyperactivity Disorder N High Blood Pressure N Arthritis N Hyperlipidemia N Cancer N Stroke N Thyroid Problems N Asthma N Depression Y COPD N Anemia N Seizures N Heart Disease N Fibromyalgia Y Osteoporosis N Kidney Disease N Gynecological HistoryNo gynecological history recorded. Obstetrics History GPAL:G 0 P 0 0 0 0 Past Encounters Encounter ID Performer Location Encounter Start Date Encounter Closed Date Diagnosis/Indication Diagnosis SNOMED-CT Code Diagnosis ICD10 Code Diagnosis Note [id number] Catracho Miller MD [address] [place] [address] Rhe[facility] ([place]) [address] [place] [address] 01/13/2024 09:13:03 01/13/2024 18:19:29 Left cervical root neuropathy 9409094249 9955039 G54.2 Anti-nucle ar factor detected 897583608 R76.8 Osteoarthritis 575295460 M19.90 Neck pain 26312000 M54.2 Health Concerns Section Related Observation LastModified by Organization Detai ls LastModified Time None Recorded Concern Status LastModified by Organization Details LastModified Time None Recorded Advance Directives Directive N: Payers Encounter Date Sequence Insurance Name Policy Number Policy Villagomez Covered Member ID Villagomez Member ID Guarantor Name 01/13/2024 1 [employer] (POS) [id number] Mari Toussaint [id number] Mari Toussaint Notes Date Note Type Note Provider Name and Address Organization Details Recorded Time 4 text/html The patient is a 53-year-old female with CRIS positivity and fibromyalgia syndrome, who is here for a followup visit. The patient reports a 6 week history of several times a day experiencing tingling and numbness and pressure extending throughout the left arm from the deltoid area to the dorsum of the arm and dorsum of the hand. Of note, she does have radiographically documented degenerative disk and joint disease of the cervical spine. She has had no recent falls or injury to the neck. In fact, her neck really is not bothering her all that much. It does occasionally give her twinges of pain with extremes of neck extension or flexion. However, she rates her left arm paresthesias at a 2-3/10 on a scale. She has tried Aleve, but this is not producing much in the way of relief from her numbness and tingling and burning sensation. Of note, she did undergo an extensive connective tissue disease workup when I first saw her in May of last year. This was all normal or negative. More recently, on December 21, 2023, she underwent a CBC, CMP and acute phase reactant measurement, as well as CPK level. These were all normal. The patient today denies any muscle weakness. She has had no nausea or vomiting. No fever or chills. She does complain of fatigue and nonrestorative sleep. No skin rash or Raynaud s symptoms, aphthous ulcers, neck swelling, lymph node swelling. She cannot identify any specific trigger that sets off her symptoms. No relationship to any types of neck or head range of motion activity such as looking up or down or over her left or right shoulder. The patient does, however, note that the onset of her symptoms seem to correlate with her going off some of her antidepressant medications. She is not sure whether some of these medications may have been masking some of her symptoms for quite some time.anand Buckley a 53 year oldfemalepresenting for care. Catracho Miller MD [address] [place] [address], [phone], [facility] 01/16/2024 10:12:51 OBGyn Episode No OBEpisode recorded.
--- OUTSIDE RECORDS SUMMARY | 2024-08-13 07:47 | XMS_ITS ---
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 Name Role Phone Rhina Gabriel MD Primary Care Provider Sea Dent Unavailable [phone] Allergies Allergen (clinical drug ingredient) Drug/Non Drug Allergy documented on EMR Reaction Allergy Type Onset Date Status Substance with sulfonamide structure and antibacterial mechanism of action (substance) Sulfa Antibiotics Unknown Drug Allergy Active REASON FOR VISIT follow-up, MIPS PHQ less than 5 Positive with f/u doc, Depression screening positive Medications Medication SIG (Take, Route, Fr equency, Duration) Notes Start Date End Date Status Auvelity 45-105 MG 1 tablet Orally twic e a day for 30 days 05/23/2024 Active Social History Tobacco Use: Social History Observation Description Date Details (start date - stop date) Never Smoker NA - NA Sex Assigned At : Social History Observation Description Sex Assigned At Female Tobacco Control (Standard) Question Answer Notes Tobacco use: Nonsmoker Vital Signs Blood pressure systolic 123 mm Hg 05/23/20 24 Blood pressure diastolic 83 mm Hg 024 Heart Rate 69 /min 05/23/2024 Height 68.00 in 05/23/2024 Weight 139 lbs 05/23/2024 BMI 21.13 kg/m2 05/23/2024 Height-cm 172.72 cm 05/23/2024 Weight-kg 63.05 kg 05/23/2024 Encounters Encounter Location Date Provider Diagnosis [facility] [address] [place] [address] 05/23/2024 Sea Chang Major depressive disorder, recurrent severe without psychotic features F33.2 ; Generalized anxiety disorder F41.1 and Adjustment disorder, unspecified F43.20 Assessments Encounter Date Diagnosis (ICD Code) Assessment Notes Treatment Notes Treatment Clinical Notes Section Notes 05/23/2024 Major depressive disorder, recurrent severe without psychotic features (ICD-10 - F33.2) Electronic Prior Authorization was requested for Auvelity 45-105 MG Tablet Extended Release. Provider can order medication once approval received. Grief and Stress Related to Mother's Passing - Assessment: Patient reports mother recently, causing stress and potential delayed grief reaction. - Plan: - Encourage patient to continue attending counseling sessions with Rivera. - Schedule a follow-up appointment after Joan, in the July. Obsessive-Compul sive Disorder (OCD) - Assessment: Patient reports improvement with Auvelity, including reduced rumination and distraction. - Plan: - Advise patient to take Auvelity every 12 hours, with a minimum of eight hours between doses. - Continue monitoring the patient's response to the medication. Escitalopram-Ind uced Metal Taste - Assessment: Patient tried escitalopram briefly but experienced metal taste side effect. - Plan: - Discontinue escitalopram due to adverse reaction. - Monitor for any residual side effects. Prior Authorization for Auvelity - Assessment: Patient reports having enough medication for at least a month. - Plan: - Initiate prior authorization process to ensure medication coverage. - Send prescription to the pharmacy and coordinate with Jami for approval and mailing. Family Dynamics and Relationships - Assessment: Patient expresses concerns about relationships with children and a new person in her life. - Plan: - Encourage patient to schedule a counseling session with Rivera, involving her children, to address family issues. - Monitor progress and provide support as needed. Follow-up Appointments - Assessment: Patient prefers counseling sessions during the holiday period. - Plan: - Schedule a follow-up appointment with Rivera in the next couple of weeks. - Schedule a follow-up appointment with Dr. Chang after , in the July. 05/23/2024 Generalized anxiety disorder (ICD-10 - F41.1) Grief and Stress Related to Mother's Passing - Assessment: Patient reports mother recently, causing stress and potential delayed grief reaction. - Plan: - Encourage patient to continue attending counseling sessions with Rivera. - Schedule a follow-up appointment after , in the July. Obsessive-Compul sive Disorder (OCD) - Assessment: Patient reports improvement with Auvelity, including reduced rumination and distraction. - Plan: - Advise patient to take Auvelity every 12 hours, with a minimum of eight hours between doses. - Continue monitoring the patient's response to the medication. Escitalopram-Ind uced Metal Taste - Assessment: Patient tried escitalopram briefly but experienced metal taste side effect. - Plan: - Discontinue escitalopram due to adverse reaction. - Monitor for any residual side effects. Prior Authorization for Auvelity - Assessment: Patient reports having enough medication for at least a month. - Plan: - Initiate prior authorization process to ensure medication coverage. - Send prescription to the pharmacy and coordinate with Jami for approval and mailing. Family Dynamics and Relationships - Assessment: Patient expresses concerns about relationships with children and a new person in her life. - Plan: - Encourage patient to schedule a counseling session with Rivera, involving her children, to address family issues. - Monitor progress and provide support as needed. Follow-up Appointments - Assessment: Patient prefers counseling sessions during the holiday period. - Plan: - Schedule a follow-up appointment with Rivera in the next couple of weeks. - Schedule a follow-up appointment with Dr. Chang after , in the July. 05/23/2024 Adjustment disorder, unspecified (ICD-10 - F43.20) Grief and Stress Related to Mother's Passing - Assessment: Patient reports mother recently, causing stress and potential delayed grief reaction. - Plan: - Encourage patient to continue attending counseling sessions with Rivera. - Schedule a follow-up appointment after , in the July. Obsessive-Compul sive Disorder (OCD) - Assessment: Patient reports improvement with Auvelity, including reduced rumination and distraction. - Plan: - Advise patient to take Auvelity every 12 hours, with a minimum of eight hours between doses. - Continue monitoring the patient's response to the medication. Escitalopram-Ind uced Metal Taste - Assessment: Patient tried escitalopram briefly but experienced metal taste side effect. - Plan: - Discontinue escitalopram due to adverse reaction. - Monitor for any residual side effects. Prior Authorization for Auvelity - Assessment: Patient reports having enough medication for at least a month. - Plan: - Initiate prior authorization process to ensure medication coverage. - Send prescription to the pharmacy and coordinate with Jami for approval and mailing. Family Dynamics and Relationships - Assessment: Patient expresses concerns about relationships with children and a new person in her life. - Plan: - Encourage patient to schedule a counseling session with Rivera, involving her children, to address family issues. - Monitor progress and provide support as needed. Follow-up Appointments - Assessment: Patient prefers counseling sessions during the holiday period. - Plan: - Schedule a follow-up appointment with Rivera in the next couple of weeks. - Schedule a follow-up appointment with Dr. Chang after , in the July. Plan Of Treatment Medication Medication Name Sig Start Date Stop Date Notes Auvelity 45-105 MG 1 tablet Orally twice a day for 30 days 05/23/2024 Treatment Notes Assessment Notes Major depressive disorder, r ecurrent severe without psychotic features Electronic Prior Authorization was reque sted for Auvelity 45-105 MG Tablet Extended Release. Provider can order medication once approval received. Next Appt Details Follow Up: 6 Weeks, Reason: Provider Name:Sea Chang , 09/10/2024 03:30:00 PM, [address], [facility] [address], [place], [address], Progress Notes * NOBLE BRITT EDOB:1969 (54 yo F)Acc No.[id number]:05/23/2024 Patient: NOBLE FENG Provider: Brett CHANG MD :1970 A ge:54 Y S ex:Female Date:05/23/2024 Address:[address] [place], [place] [id number] Pcp:Rhina Gabriel MD Subjective: * Chief Complaints: * F ollow-upMIPS PHQ less than 5 Positive with f/u docDepression screening positive * HPI: D epression screening: PHQ-9 L ittle interest or pleasure in doing things N ot at all, F eeling down, depressed, or hopeless S everal days, T rouble falling or staying asleep, or sleeping too much N ot at all, F eeling tired or having little energy N ot at all, P oor appetite or overeating N ot at all, F eeling bad about yourself or that you are a failure, or have let yourself or your family down S everal days, T rouble concentrating on things, such as reading the newspaper or watching television S ever, M oving or speaking so slowly that other people could have noticed; or the opposite, being so fidgety or restless that you have been moving around a lot more than usual N ot at all, T houghts that you would be better off or of hurting yourself in some way N ot at all. I ntervention D epression Screening Findings P ositve, F ollow-Up for Depression M [facility] treatment assessment, Patient follow-up to return when and if necessary, S uicide Risk Assessment Performed , A dditional Evaluation for Depression P sychiatric interview and evaluation, N sandra of the standardized tool used for adult depression screening: [facility] (PHQ-9). C [place]-Suicide Severity Rating Scale: Suicide Risk (CSRS-screener) i n the past one month Have you wished you were or wished you could go to sleep and not wake up? Y es, i n the past one month Have you actually had any thoughts of killing yourself? N o, H ave you ever done anything, started to do anything, or prepared to do anything to end your life? N o. D epression Screening: GAURAV-7 (2018 Edition) F eeling nervous, anxious, or on edge?Several days, N ot being able to stop or control worrying S everal days, W orrying too much about different things S everal days, T rouble relaxing S everal days, B eing so restless that it is hard to sit still S everal days, B ecoming easily annoyed or irritable S everal days, F eeling afraid as if something awful might happen N ot at all, I f you checked any problems, how difficult have they made it for you to do your work, take care of things at home, or get along with other people? S omewhat difficult. * Medical History: * Surgical History: * Hospitalization/Major Diagno stic Procedure: * Social History: T obacco Use: T obacco Control (Standard) T obacco use: N onsmoker. M igrated Social History: M igrated Social History: Alcohol Intake: Occasional 01/25/2022,Tobacco Years: Never smoker 04/20/2021. M iscellaneous: A dvance Care Planning A re you your own decision-maker Y es, D o you have Power of [place] [employer] for Health or Medical? N o. * Medications: D iscontinuedbusPIRone HCl 5 MG Tablet Oral , Notes to Pharmacist: prnEscitalopram Oxalate 10 MG Tablet 1 tablet Oral Once a day Medication List reviewed and reconciled with the patientDiscontinued busPIRone HCl 5 MG Tablet Oral , Notes to Pharmacist: prnDiscontinued Escitalopram Oxalate 10 MG Tablet 1 tablet Oral Once a day Medication List reviewed and reconciled with the patient * Allergies: S bijan Nur[Allergies Verified] Objective: * Vitals: B P:123/83mm Hg, HR:69/min, Wt:139lbs, Wt-k.05 kg, Ht: 68.00 in, Ht-cm: 172.72 cm, BMI:21.13Index, Body Surface Area: 1.74. Assessment: * Assessment: 1. M ajor depressive disorder, recurrent severe without psychotic features - F33.2 (Primary)? 2. G eneralized anxiety disorder - F41.1 3 . A djustment disorder, unspecified - F43.20 Grief and Stress Related to Mother's Passing - Assessment: Patient reports mother recently, causing stress and potential delayed grief reaction. - Plan: - Encourage patient to continue attending counseling sessions with Rivera. - Schedule a follow-up appointment after , in the week july. Obsessive-Compulsive Disorder (OCD) - Assessment: Patient reports improvement with Auvelity, including reduced rumination and distraction. - Plan: - Advise patient to take Auvelity every 12 hours, with a minimum of eight hours between doses. - Continue monitoring the patient's response to the medication. Escitalopram-Induced Metal Taste - Assessment: Patient tried escitalopram briefly but experienced metal taste side effect. - Plan: - Discontinue escitalopram due to adverse reaction. - Monitor for any residual side effects. Prior Authorization for Auvelity - Assessment: Patient reports having enough medication for at least a month. - Plan: - Initiate prior authorization process to ensure medication coverage. - Send prescription to the pharmacy and coordinate with Jami for approval and mailing. Family Dynamics and Relationships - Assessment: Patient expresses concerns about relationships with children and a new person in her life. - Plan: - Encourage patient to schedule a counseling session with Rivera, involving her children, to address family issues. - Monitor progress and provide support as needed. Follow-up Appointments - Assessment: Patient prefers counseling sessions during the holiday period. - Plan: - Schedule a follow-up appointment with Rivera in the next couple of weeks. - Schedule a follow-up appointment with Dr. Chang after , in the July. Plan: * Treatment: * Procedure Codes: 9 6127 BEHAV ASSMT W/SCORE & DOCD/STAND INSTRUMENT * Follow Up: 6 Weeks * Billing Information: * Visit Code: 72211 OFFICE OUTPATIENT VISIT 25 MINUTES DETAILED HISTORY AND EXAM/MODERATE MEDICAL DECISION MAKING. * Procedure Codes: 32431 BEHAV ASSMT W/SCORE & DOCD/STAND INSTRUMENT. * ETT MACHINE OPERATOR HELPER Sign off status: Completed true * Provider: Brett CHANG MD Date: 07/23/2023 Generated for Ella resendez/Vinita/Randellransmitting on: 0 08/13/2024 07:47 AM GARNETT MACHINE OPERATOR HELPER History and Physical Notes * HPI (History of Present Illness) Category Sub-Category Detail Notes Category Not es Depression screening PHQ-9 Little inte rest or pleasure in doing things: Not at all Feeling down, depressed, or hopeless: Se veral days Trouble falling or staying asleep, or sl eeping too much: Not at all Feeling tired or having little energy: N ot at all Poor appetite or overeating: Not at all Feeling bad about yourself o r that you are a failure, or have let yourself or your family down: Several days Trouble concentrating on thi ngs, such as reading the newspaper or watching television: Several days Moving or speaking so slowly that other people could have noticed; or the opposite, being so fidgety or restless that you have been moving around a lot more than usual: Not at all Thoughts that you would be b nato off or of hurting yourself in some way: Not at all Intervention Depression Screening Findings: P osfredy Follow-Up for Depression: [facility] treatment assessment, Patient follow-up to return when and if necessary Suicide Risk Assessment Performed: Additional Evaluation for De pression: Psychiatric interview and evaluation Name of the standardized too l used for adult depression screening:: Patient Health Questionnaire (PHQ-9) Depression Screening GAURAV-7 (2018 Edition) Feelin g nervous, anxious, or on edge: Several days Not being able to stop or control worryi ng: Several days Worrying too much about different things : Several days Trouble relaxing: Several days Being so restless that it is hard to sit still: Several days Becoming easily annoyed or irritable: Se veral days Feeling afraid as if something awful lucie ht happen: Not at all If you checked any problems, how difficult have they made it for you to do your work, take care of things at home, or get along with other people?: Somewhat difficult [place]-Suicide Severity Rating Scale Suicide Risk (CSRS-screener) in the past one month Have you wished you were or wished you could go to sleep and not wake up?: Yes in the past one month Have y ou actually had any thoughts of killing yourself?: No Have you ever done anything, started to do anything, or prepared to do anything to end your life?: No
--- OUTSIDE RECORDS SUMMARY | 2024-08-13 07:47 | XMS_ITS | Data Portability ---
Author Organization [facility] Address [address] [place] [address] [place] [address] Care Team Providers Care Zyglo Inspector Name Role Phone LAURIE BYNUM Primary Care Provider [phone] Assessment Encounter Date Assessment Date Assessment LastModified by Organization Details LastModified Time 03/31/2021 03/31/2021 Annual gynecological exam performed. Patient will come back in a year unless there are new symptoms. Not available 03/30/2021 17:08:53 04/27/2022 04/27/2022 Annual gynecological exam performed. Patient will come back in a year unless there are new symptoms. Not available 04/27/2022 16:24:48 04/29/2023 04/29/2023 Annual gynecological exam performed. Patient will come back in a year unless there are new symptoms. [email or web address] Not available 04/29/2023 09:37:17 05/30/2024 05/30/2024 Annual gynecological exam performed. Patient will come back in a year unless there are new symptoms. [email or web address] Not available 05/30/2024 15:56:55 Plan of Treatment Reminders Order Date Submit Date Provider Last Modified By Organization Details Last Modified Time Details Appointments None recorded. Lab lh + FSH, serum 2021 022 [facility], [address], [place], [address], 15:16:07 estradiol, serum 2021 [employer], [address], [place], [address], 2 15:16:07 pap, IG + HR HPV - HPV regardless but if HPV is positive need subtyping 16,18/45 2023 024 [facility] (Lab), [address], [place], [address], 4 18:42:54 Referral None recorded. Procedures colonoscopy screening (PROC) [address] [facility], [address], [address], [place], [address], 4 16:41:26 Surgeries None recorded. Imaging MAMMO, screening, bilateral [address], [address], [place], [address], 4 16:16:03 MAMMO, screening, digital, bilateral 2023 024 [facility], [address], [place], [address], 4 04:02:23 Medication Orders Prometrium 100 mg capsule 2020 021 [place] [address] [id number], [address], [place], [place], [id number], 3 09:38:16 Patient TargetsNo targets recorded. Patient InstructionsNo instructions recorded. Reason for Referral None Reported. 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 FINAL DIAGN OSIS: Negat gamaliel for Intra epith elial Abhilash gao or Francoise sena (NIL) . Elect dayday calderón khadra d by Idalia Laird on 05/03 at 1:44 PM ----- ----- ----- ----- ----- ----- ----- ----- ----- ----- ----- ----- ----- ----- ----- ----- ----- ---- HPV RESUL TS: HPV mRNA E6/E7 : No HPV mRNA Detec alma NOTE: This high risk HPV mRNA assay detec ts fourt een high- risk HPV types (16, 18, 31, 33, 35, 39, 45, 51, 52, 56, 58, 59, 66, 68) witho ut diffe renti ation . COMME NT: Note: This speci men was revie wed by a Cytot echno logis t and/o r Patho logis t (as indic ated in this repor t) after evalu ation using the Thinp rep Imagi ng Syste m. CLINI DIONNA INFOR MATIO N: Menst rual Statu s: LMP (if appli cable ): Clini dionna Histo ry/Pr eviou s Pap: Type of Neopl tony (if appli cable ): Signi fican t Clini dionna Findi ngs: Other Histo ry: Hormo ilana (if appli cable ): PAP EDUCA ARIANA L NOTE: The Pap Test is a scree rui test with an inher ent false negat gamaliel rate. Liqui d-bas ed sampl ing may decre ase, but will not elimi laura, false negat gamaliel resul ts. A negat gamaliel resul t does not precl ude the prese nce and/o r devel opmen t of disea se, since the prese nce of abnor mal cells in the sampl e depen ds on the locat ion of the lesio n and sampl ing techn ique. Papito nued regul ar scree rui is the best metho d of cance r preve ntion . If repor alma cytol ogic findi ng do not corre late with physi dionna and/o r histo rical findi ngs, furth er inves tigat ion is recom yenifer d, as clini grabiel chen nted. 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 Elect dayday calderón khadra d by [place], CT on 2022 at 3:54 PM ----- ----- ----- ----- ----- ----- ----- ----- ----- ----- ----- ----- ----- ----- ----- ----- ----- ---- HPV RESUL TS: HPV mRNA E6/E7 : No HPV mRNA Detec alma NOTE: This high risk HPV mRNA assay detec ts fourt een high- risk HPV types (16, 18, 31, 33, 35, 39, 45, 51, 52, 56, 58, 59, 66, 68) witho ut diffe renti ation . COMME NT: This speci men was revie wed by a Cytot echno logis t and/o r Patho logis t (as indic ated in this repor t) after evalu ation using the Thinp rep Imagi ng Syste m. CLINI DIONNA INFOR MATIO N: Menst rual Statu s: LMP (if appli cable ): Clini dionna Histo ry/Pr eviou s Pap: Type of Neopl tony (if appli cable ): Signi fican t Clini dionna Findi ngs: Other Histo ry: Hormo ilana (if appli cable ): PAP EDUCA ARIANA L NOTE: The Pap Test is a scree rui test with an inher ent false negat gamaliel rate. Liqui d-bas ed sampl ing may decre ase, but will not elimi laura, false negat gamaliel resul ts. A negat gamaliel resul t does not precl ude the prese nce and/o r devel opmen t of disea se, since the prese nce of abnor mal cells in the sampl e depen ds on the locat ion of the lesio n and sampl ing techn ique. Papito nued regul ar scree rui is the best metho d of cance r preve ntion . If repor alma cytol ogic findi ng do not corre late with physi dionna and/o r histo rical findi ngs, furth er inves tigat ion is recom yenifer d, as clini grabiel chen nted. Not Available [facility] (Lab) [address], [place], [address], 05/04/2023 16:57:58 05/30/20 24 05/30/2024 IMAGE GUIDE D PAP AND HPV REGAR DLESS image guided Pap, HPV regardless of Pap result SEE RESULT S BELOW CASE REPOR T: Cytol ogy Gynec ologi dionna Repor t Case: [id number] Autho rizin g Provi castillo: Dermo dy, Danyelle , ANP, SOLUTION PROFESSIONAL Colle cted: 05/30 1646 Order ing Locat ion: [place] Patho logy Recei diego: 05/31 0227 First Scree n: Ruchi Melchor ret, CT Rescr een: [place], CT Speci men: Narinder fabian Pap - Image d, Cervi x STATE MENT OF ADEQU ACY: Satis facto ry for evalu ation Trans forma tion zone compo nent absen t The absen ce of an endoc ervic al compo nent was confi rmed by an addit ional scree ner. ----- ----- ----- ----- ----- ----- ----- ----- ----- ----- ----- ----- ----- ----- ----- ----- ----- ---- FINAL DIAGN OSIS: Negat gamaliel for Intra epith elial Abhilash gao or Francoise sena (NIL) . Elect dayday gaviria d by [place], CT on 2023 at 5:38 PM ----- ----- ----- ----- ----- ----- ----- ----- ----- ----- ----- ----- ----- ----- ----- ----- ----- ---- HPV RESUL TS: HPV mRNA E6/E7 : No HPV mRNA Detec alma NOTE: This high risk HPV mRNA assay detec ts fourt een high- risk HPV types (16, 18, 31, 33, 35, 39, 45, 51, 52, 56, 58, 59, 66, 68) witho ut diffe renti ation . COMME NT: This speci men was revie wed by a Cytot echno logis t and/o r Patho logis t (as indic ated in this repor t) after evalu ation using the Thinp rep Imagi ng Syste m. CLINI DIONNA INFOR MATIO N: Menst rual Statu s: LMP (if appli cable ): Clini dionna Histo ry/Pr eviou s Pap: Type of Neopl tony (if appli cable ): Signi fican t Clini dionna Findi ngs: Other Histo ry: Hormo ilana (if appli cable ): PAP EDUCA ARIANA L NOTE: The Pap Test is a scree rui test with an inher ent false negat gamaliel rate. Liqui d-bas ed sampl ing may decre ase, but will not elimi laura, false negat gamaliel resul ts. A negat gamaliel resul t does not precl ude the prese nce and/o r devel opmen t of disea se, since the prese nce of abnor mal cells in the sampl e depen ds on the locat ion of the lesio n and sampl ing techn ique. Papito nued regul ar scree rui is the best metho d of cance r preve ntion . If repor alma cytol ogic findi ng do not corre late with physi dionna and/o r histo rical findi ngs, furth er inves tigat ion is recom yenifer d, as clini grabiel chen nted. Not Available [facility] (Lab) [address], [place], [address], 06/11/2024 18:42:54 04/01/20 20 03/31/2020 MAMMO , scree rui, bilat eral No observ ation record ed. [facility] [address], [place], [address], 04/01/2020 21:32:53 05/07/20 21 05/07/2021 MAMMO , scree rui, bilat eral No observ ation record ed. [address] [facility] [address], [place], [address], 05/15/2021 13:49:35 05/14/20 22 05/14/2022 MAMMO , scree rui, bilat eral No observ ation record ed. [address] [facility] [address], [place], [address], 04/29/2023 11:30:01 Result Notes None recorded. Problems Name Problem SNOMED Code Status Onset Date Resolution Date Notes Provider Name and Address Organization Details Recorded Time Female genital organ symptoms 135554486 Completed 201403/30/2021 Pelvic Pain;Prac apurva ID: 0001 Noelle Taylor [facility] 14:58:51 Menstrua tion finding Completed 201403/30/2021 Menorrhag ia Excessive Menstruat ion;Pract ice ID: 0001 Noelle Taylor [facility] 14:59:08 Left lower quadrant pain 406430870 Completed 201403/30/2021 Abdominal pain, left lower quadrant; Practice ID: 0001 Noelle reeder [facility] 14:59:02 Uterine leiomyom a 25162018 Completed 201403/30/2021 Leiomyoma of uterus, unspecifi ed;Practi ce ID: 0001 Noelle Taylor [facility] 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 14:59:22 Pelvic and perineal pain 416284326 Completed 201403/30/2021 Pelvic and perineal pain;Prac apurva ID: 0001 Noelle reeder [facility] 14:59:10 Finding of regulari ty of menstrua l cycle Completed 201703/30/2021 Irregular menstruat ion, unspecifi ed;Practi ce ID: 0001 Noelle reeder [facility] 14:58:58 Adult health examinat ion Completed 201303/30/2021 Routine general medical examinati on at a health care facility; Practice ID: 0001 Noelle reeder [facility] 14:58:44 Speciali zed medical examinat ion Completed 201303/30/2021 Routine gynecolog ical examinati on;Practi ce ID: 0001 Noelle reeder [facility] 14:59:24 Screenin g for malignan t neoplasm of cervix Completed 201303/30/2021 Pap Smear;Pra ctice ID: 0001 Noelle reeder [facility] 14:59:14 Screenin g for malignan t neoplasm of rectum Completed 201303/30/2021 Screening for malignant neoplasms of the rectum;Pr actice ID: 0001 Noelle reeder [facility] 14:59:[address] Concept Completed 201703/30/2021 Encntr for general adult medical exam w/o abnormal findings; Practice ID: 0001 Noelle reeder [facility] 14:59:21 Imaging result abnormal [id number] Completed 201703/30/2021 Abnormal findings on diagnosti c imaging of body structure s;Practic e ID: 0001 Noelle reeder [facility] 14:59:01 Finding of pattern of menstrua l cycle 997385263 Completed 201703/30/2021 Excessive and frequent menstruat ion with irregular cycle;Pra ctice ID: 0001 Noelle reeder [facility] 14:58:55 Finding of pattern of menstrua l cycle Completed 201903/30/2021 Other specified irregular menstruat ion;Pract ice ID: 0001 Noelle reeder [facility] 14:58:53 Pregnanc y test negative 803650152 Completed 201903/30/2021 Encounter for test, result negative; [facility] 14:59:11 Uses combined oral contrace ption 333643373 Completed 201903/30/2021 Encounter for initial prescript ion of contracep tive pills;Pra ctice ID: 0001 Noelle reeder [facility] 14:58:50 Mammogra phy abnormal 998873860 Completed 201303/30/2021 Unspecifi ed abnormal mammogram ;Recorded Elsewhere : No Locati on: [facility] So urce: EHR Chron ic: N Practic e ID: 0001 Bill able Time: 11:51:29 AM Noelle reeder [facility] 14:59:04 Body mass index 25-29 - overweig ht 112652894 Completed 201403/30/2021 Body mass index (BMI) 27.0-27.9 , adult;Rec orded Elsewhere : No Locati on: [facility] So urce: EHR Chron ic: N Practic e ID: 0001 Bill able Time: 08:30:00 AM Noelle reeder [facility] 14:58:47 Radiolog ic finding 057615994 Completed 201803/30/2021 Oth abn and inconclus gamaliel findings on dx imaging of breast;Re corded Elsewhere : No Locati on: [facility] So urce: EHR Chron ic: N Practic e ID: 0001 Bill able Time: 08:20:08 AM Noelle reeder [facility] 14:58:48 Atypical glandula r cells on cervical Papanico laou smear [id number] Completed 201103/30/2021 Abnormal glandular Papanicol aou smear of cervix;Re corded Elsewhere : No Locati on: [facility] So urce: EHR Chron ic: N Practic e ID: 0001 Bill able Time: 02:00:00 PM Noelle reeder [facility] 14:58:45 Right lower quadrant pain 146709979 Completed 201203/30/2021 Abdominal pain, right lower quadrant; Recorded Elsewhere : No Locati on: [facility] So urce: EHR Chron ic: N Practic e ID: 0001 Bill able Time: 05:00:00 PM Noelle reeder [facility] 14:59:13 Problem Notes None recorded. Procedures Surgical History Date Name Laterality Status Provider Name and Address Organization Details Recorded Time 04/29/20 23 Date of Last Pap Smear completed Zenia Long [facility] 05/30/2024 15:57:22 05/14/20 22 Date of Last Mammogram completed Chelsi Shantanu [facility] 04/29/2023 09:38:57 07/04/19 22 Date of Last Colonoscopy completed Chelsi Fournier [facility] 04/29/2023 09:39:11 04/09/20 20 endometrial biopsy completed Noelle Taylor [facility] 04/26/2022 17:34:53 04/09/20 20 LAPAROSCOPIC TUBAL LIGATION AND ABLATION (SURG) completed Ashleigh Leyva [facility] 12/16/2020 13:00:25 Imaging Results Imaging Date Name Status LastModified by Organiz ation Details LastModified Time 03/31/2020 MAMMO, screening, bilateral completed JOEL [facility] [address], [place], [address], 04/01/2020 21:32:53 05/07/2021 MAMMO, screening, bilateral completed [email or web address] [facility] [address], [place], [address], 05/15/2021 13:49:35 05/14/2022 MAMMO, screening, bilateral completed [email or web address] [facility] [address], [place], [address], 04/29/2023 11:30:01 Procedure Notes None recorded. Medical Equipment None Reported. Allergies Allergen ID Allergen Name Allergen Category Reaction Reaction Severity Criticality Documentation Date Start Date Code Code System Note Provider Name and Address Organization Details Recorded Time 1856 Substance with sulfonami de structure and antibacte rial mechanism of action (substanc e) medicatio n Not available Not available Not available 02/28/2020 24220 8003 SNMIRNA reeder [facility] 0 16:01:05 Medications Name Sig Start Date Stop Date Status Note LastModified by Organization Details LastModified Time quetiapin e 25 mg tablet TAKE 1/2 TO 1 TABLET BY MOUTH DAILY NEEDED 05/30 completed Not Available Not Available Not Available buspirone 5 mg tablet TAKE 1 TABLET BY MOUTH EVERY DAY DIRECTED 05/30 completed Not Available Not Available Not Available venlafaxi ne ER 37.5 mg capsule,e xtended release 24 hr TAKE 1 CAPSULE BY MOUTH EVERY DAY IN THE MORNING 04/27 completed Not Available Not Available Not Available doxycycli ne hyclate 100 mg capsule 04/27 completed Not Available Not Available Not Available azithromy russell 250 mg tablet 03/30 completed Not Available Not Available Not Available hydrocodo ne 5 mg-acetam inophen 325 mg tablet TK 1 TO 2 TS PO Q 4 H PRF PAIN 03/31 completed Not Available Not Available Not Available venlafaxi ne ER 150 mg capsule,e xtended release 24 hr TAKE 1 CAPSULE BY MOUTH EVERY DAY IN THE MORNING 04/29 completed Not Available Not Available Not Available quetiapin e 100 mg tablet TAKE 1 TABLET BY MOUTH EVERY DAY AT BEDTIME 04/27 completed Not Available Not Available Not Available lorazepam 0.5 mg tablet TAKE 1 TABLET BY MOUTH EVERY 4 HOURS NEEDED FOR ANXIETY 04/29 completed Not Available Not Available Not Available benzonata te 100 mg capsule 04/27 completed Not Available Not Available Not Available erythromy russell 5 mg/gram (0.5 %) eye ointment APPLY A 1CM RIBBON INTO THE LOWER CONJUNCT IVAL SAC IN THE LEFT EYE EVERY NIGHT 03/31 completed Not Available Not Available Not Available gabapenti n 100 mg capsule take 1 capsule by oral route 3 times every day 03/31 completed Prescrib ed Elsewher e: Yes Loca tion: [facility]ify By: keaton webb DateTime : 06/21/20 19 03:00:00 PM Not Available Not Available Not Available azelastin e 137 mcg (0.1 %) nasal spray USE 1 SPRAY IN EACH NOSTRIL EVERY 12 HOURS 04/29 completed Not Available Not Available Not Available methylpre dnisolone 4 mg tablets in a dose pack 04/27 completed Not Available Not Available Not Available lorazepam 2 mg/mL oral concentra te take 0.5 millilit er by oral route 3 times every day 03/30 completed Prescrib ed Elsewher e: Yes [facility] By: fanta weller DateTime : 05/09/20 12 02:00:00 PM Not Available Not Available Not Available progester one micronize d 100 mg capsule TAKE 1 CAPSULE BY MOUTH EVERY DAY 04/29 completed Not Available Not Available Not Available buspirone 15 mg tablet TAKE 1 TABLET BY MOUTH THREE TIMES DAILY 04/29 completed Not Available Not Available Not Available escitalop charito 10 mg tablet TAKE 1 TABLET BY MOUTH EVERY DAY IN THE MORNING 04/29 completed Not Available Not Available Not Available escitalop charito 20 mg tablet 03/31 completed Not Available Not Available Not Available Kamala 0.35 mg tablet take 1 tablet by oral route every day 03/31 completed Prescrib ed Elsewher e: No Locat ion: [facility] By: garima moore DateTime : 09/13/19 08:15:00 AM Not Available Not Available Not Available escitalop charito 5 mg/5 mL oral solution take 10 millilit er by oral route every day 03/30 completed Prescrib ed Elsewher e: Yes Loca tion: [facility]ify By: keaton [email or web address] DateTime : 07/12/19 02:30:00 PM Not Available Not Available Not Available escitalop charito 5 mg tablet Take 1 tablet every day by oral route. 04/04 completed Not Available Not Available Not Available minerals 03/03 completed Not Available Not Available Not Available Vitamin 03/03 completed Not Available Not Available Not Available quetiapin e 50 mg tablet TAKE 1 TABLET BY MOUTH DAILY AT BEDTIME 05/30 completed Not Available Not Available Not Available Savella 25 mg tablet 03/30 completed Not Available Not Available Not Available Savella 50 mg tablet TK 1 T PO BID 03/31 completed Not Available Not Available Not Available Savella 03/30 completed Not Available Not Available Not Available Lo Loestrin Fe 1 mg-10 mcg (24)/10 mcg (2) tablet take 1 tablet by oral route every day 07/12 completed Prescrib ed Elsewher e: No Locat ion: [facility]ify By: keaton webb DateTime : 06/15/20 18 10:30:00 AM Not Available Not Available Not Available Allergy and Sinus Relief 04/29 completed Not Available Not Available Not Available Trintelli x 20 mg tablet TAKE 1 TABLET BY MOUTH EVERY DAY 05/30 completed Not Available Not Available Not Available Spravato 56 mg (28 mg x 2) nasal spray 04/27 completed Not Available Not Available Not Available Spravato 84 mg (28 mg x 3) nasal spray 05/30 completed Not Available Not Available Not Available Auvelity 45 mg-105 mg tablet, extended release active Not Available Not Available Not Available Vitals Date Recorded Body height Body mass index (BMI) Body weight Systolic blood pressure Diastolic blood pressure Provider Name and Address Organization Details Last Updated DateTime 03/31/2021 168.28 cm 24.3 kg/m2 63288.04 g 119 mm[Hg] 73 mm[Hg] [facility] 1 09:44:24 Date Recorded Body height Body mass index (BMI) Body weight Systolic blood pressure Diastolic blood pressure Provider Name and Address Organization Details Last Updated DateTime 04/27/2022 168.91 cm 27 kg/m2 09508.7 g 120 mm[Hg] 76 mm[Hg] [facility] 2 16:29:28 Date Recorded Body height Body mass index (BMI) Body weight Systolic blood pressure Diastolic blood pressure Provider Name and Address Organization Details Last Updated DateTime 04/29/2023 168.91 cm 26.9 kg/m2 99327.11 g 133 mm[Hg] 77 mm[Hg] Chelsi Shantanu [facility] 3 09:37:39 Date Recorded Body height Body mass index (BMI) Body weight Systolic blood pressure Diastolic blood pressure Provider Name and Address Organization Details Last Updated DateTime 04/15/2020 170.18 cm 25.7 kg/m2 56524.15 g 108 mm[Hg] 75 mm[Hg] Rosalinda Katelyn [facility] 0 09:31:12 Date Recorded Body height Body mass index (BMI) Body weight Systolic blood pressure Diastolic blood pressure Provider Name and Address Organization Details Last Updated DateTime 05/30/2024 168.91 cm 22.1 kg/m2 88077.34 g 109 mm[Hg] 70 mm[Hg] Zenia Long [facility] 16:10:43 Social History Question Answer Notes LastModified by Organizat ion Details LastModified Time Tobacco Smoking Status Never Smoker Christina Sommer [facility], [facility] 04/29/2023 09:27:27 Do You Have An Advance Directive? No Information not available 04/27/2022 What Is Your Level Of Alcohol Consumption? Occasional Information not available 04/27/2022 Are You Blind Or Do You Have Difficulty Seeing? No Information not available 03/30/2021 What Is Your Level Of Caffeine Consumption? Moderate Information not available 04/27/2022 How Much Tobacco Do You Chew? None Information not available 03/31/2021 In The 14 Days Before Symptom Onset, Have You Had Close Contact With A Laboratory-confir med COVID-19 While That Case Was Ill? No Information not available 03/31/2021 In The 14 Days Before Symptom Onset, Have You Had Close Contact With A Person Who Is Under Investigation For COVID-19 While That Person Was Ill? No Information not available 03/31/2021 Have You Been To An Area Known To Be High Risk For COVID-19? No Information not available 03/31/2021 Are You Deaf Or Do You Have Serious Difficulty Hearing? No Information not available 03/30/2021 What Type Of Diet Are You Following? REGULAR Information not available 03/30/2021 What Is The Highest Grade Or Level Of School You Have Completed Or The Highest Degree You Have Received? 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 No Information not available 03/31/2021 Do You Use Your Seat Belt Or Car Seat Routinely? Yes Information not available 03/30/2021 Do You Have Smoke And Carbon Monoxide Detectors In Your Home? Yes Information not available 03/30/2021 How Much Tobacco Do You Smoke? No Information not available 03/31/2021 Do You Feel Stressed (tense, Restless, Nervous, Or Anxious, Or Unable To Sleep At Night)? [id number] Information not available 03/31/2021 Do You Use Any Illicit Or Recreational Drugs? No Information not available 03/30/2021 Do You Use Sunscreen Routinely? Yes Information not available 03/30/2021 Have You Used IV Drugs? No Information not available 03/31/2021 Sex: Unknown Functional Status Question Answer Note LastModified by Organizat ion Details LastModified Time Are you able to walk? YESWOREST Information not available 03/30/2021 What is your exercise level? Occasional Information not available 03/30/2021 Mental Status None recorded. Family History Relationship Description Onset Age of this Age Resolved Age Notes LastModified by Organization Details LastModified Time Father Hypertensive disorder [email or web address] Not available 2019 16:06:25 Father Malignant neoplasm of urinary bladder [email or web address] Not available 2023 16:04:47 Paternal Uncle Hypertensive disorder [email or web address] Not available 2019 16:06:25 Paternal Uncle Aneurysm of heart [email or web address] Not available 2023 16:04:47 Paternal Grandmother Heart disease [email or web address] Not available 2019 16:06:47 Paternal Grandfather Heart disease [email or web address] Not available 2019 16:06:47 Maternal Grandmother Family history of breast cancer [email or web address] Not available 2023 16:04:47 Maternal Aunt Family history of aneurysm of blood vessel of brain [email or web address] Not available 2023 16:04:47 Maternal Aunt Family history of breast cancer [email or web address] Not available 2023 16:04:47 Maternal Grandfather Family history of aneurysm of blood vessel of brain [email or web address] Not available 2023 16:04:47 Mother Family history of breast cancer [email or web address] Not available 2023 16:04:47 Medical History Condition Response Other N Fibromyalgia Y Gynecological History Statement/Question Response Abnormal Pap Y Date of Last Mammogram 05/14/2022 On BCP's at Conception? N N STIs/STDs N HPV Vaccine N Current Control Method Tubal Ligat ion Age at First Child 22 Date of Last Colonoscopy 07/04/2021 Sexually Active? N Ablation Menses Monthly N Age of first menstrual cycle 16 Date of Last Pap Smear 04/29/2023 LMP Unknown N Obstetrics History GPAL:G 2 P 2 0 0 2 Type Value Full Term 2 Living 2 Total 2 Past Encounters Encounter ID Performer Location Encounter Start Date Encounter Closed Date Diagnosis/Indication Diagnosis SNOMED-CT Code Diagnosis ICD10 Code Diagnosis Note [id number] Leticia Barrera , [facility] [address] [address] 03/03/2020 09:18:18 03/03/2020 10:11:03 Gynecologic examination [id number] Z01.419 Suggested Calcium with Vitamin D 1200-1500m g daily. Patient advised to get an annual flu shot in the fall and she could obtain at [facility] or [facility] clinic. Also to obtain TDap vaccinatio n if you have not had one in the last 10 years. Recommend yearly mammograms . Encouraged monthly self breast exams. Encourage safe sexual practices, to use condoms and limit partners if not already in a monogamous relationsh ip. Engage in daily exercise of low impact aerobic exercise 45-60 minutes 4-5 times weekly. Avoid tobacco and illicit drugs as well as using moderation with alcohol intake less than 1-2 8 oz beverages daily. This lifestyle behavior pattern will lead to less health conditions and longer life span. If BMI greater than 25 weight watchers or dietary consult advised. All questions have been answered. Patient appears to understand informatio n, but if you have any questions please call or respond to this email. Abnormal u terine bleeding [id number] 9100 N93.9 R10.2 Patient has has hx of AUB. Last TVUS 09/2019 Ovary cysts, fibroids present. Trial of POP failed. Not interested in IUD Not interested in endo ablation. Still with pelvic pain & heavy menses in addition to prominent cervical friability with sexual activity. Question on exam if a component of adenomyosi s might also be a possibilit y. We discussed this in addition to updated TVUS. We will get pap results & Updated TVUS then she will consider MD consult to discuss options/ri sks of surgical interventi on as she does have complicate d health hx. [id number] [facility] [address] [address] 03/05/2020 09:36:44 03/05/2020 10:59:53 Abnormal uterine bleeding [id number] 9100 N93.9 [id number] MD Dia Chapman [address],[place] [address] 03/17/2020 16:28:43 03/17/2020 18:12:36 Menorrhagia 887481808 N92.0 Uterine leiomyoma 906318 05 D25.9 This patient is a 49-year-ol d female with longstandi ng menorrhagi a. She has failed multiple medical treatments . We spent 25 minutes face-to-fa ce. We talked about her ultrasound evaluation . We reviewed those images together. We reviewed a video on endometria l ablation. We talked about the risks, benefits, alternativ es to various treatments . We talked about Depo Lupron. She is not tolerate hormones or changes in her hormones well. She has fibromyalg ia. She has trouble with pain. We agreed to proceed with endometria l ablation and laparoscop ic bilateral tubal ligation in the hospital. She return in couple of weeks for the informed consent process. We will go ahead and schedule the procedure. [id number] MD Dia Chapman [address],[place] [address] 04/04/2020 17:21:05 04/05/2020 12:13:07 Abnormal uterine bleeding [id number] 9100 N93.9 Menorrhagia 680993852 N9 2.0 this patient is a 50-year-ol d female presents for preoperati ve care. She has menorrhagi a and abnormal uterine bleeding. We have agreed to perform laparoscop ic bilateral tubal ligation and endometria l ablation with hysterosco py. She understand s the risks, benefits, and alternativ es. She has completed the informed consent process and is ready to proceed [id number] MD Dia Chapman [address],[place] [address] 04/10/2020 09:04:28 04/10/2020 09:06:16 [id number] MD Dia Chapman [address],[place] [address] 04/15/2020 09:07:48 04/15/2020 09:56:50 Postoperative care [id number] Z48.89 This patient is a 50-year-ol d female presents forpostopf ollow-up. She is 1 weekpostop from a laparoscop ic tubal ligation and endometria l ablation. She has some watery vaginal discharge. She denies any foul odor to it. She states that is clear. She has no nausea, vomiting, fever, chills. She is recovering normally. Her incisions are clean dry and intact. She has no complaints . [id number] Leticia Barrera , [facility] [address] [address] 03/31/2021 09:16:32 03/31/2021 10:15:18 Gynecologic examination [id number] Z01.419 Suggested Calcium with Vitamin D 1200-1500m g daily. Patient advised to get an annual flu shot in the fall and she could obtain at [facility] or [facility] clinic. Also to obtain TDap vaccinatio n if you have not had one in the last 10 years. Recommend yearly mammograms . Encouraged monthly self breast exams. Encourage safe sexual practices, to use condoms and limit partners if not already in a monogamous relationsh ip. Engage in daily exercise of low impact aerobic exercise 45-60 minutes 4-5 times weekly. Avoid tobacco and illicit drugs as well as using moderation with alcohol intake less than 1-2 8 oz beverages daily. This lifestyle behavior pattern will lead to less health conditions and longer life span. If BMI greater than 25 weight watchers or dietary consult advised. All questions have been answered. Patient appears to understand informatio n, but if you have any questions please call or respond to this email.Pap/ hpv q3-5yr per asccp unless otherwise indicated. Endo ablation 2019 doing wellMammo orderedCol on-UTD with PCPSpouse 1wk ago. Family his tory of malignant neoplasm of breast in first degree relative 715045003 Z80.3 Pts mother had Estrogen responsive tumor & was placed on TamoxifenW e discussed genetic testing today & previously ; but opts to defer for now.Maribel g the the very recent loss of her spouse (1wk ago) from cancer. Night sweats [id number] R6 1 Trial for night sweats.On SSRI but her night sweats get worse when increase to 20mg vs 10mg so wanted to see if different medication is reasonable to add to her 10mg that might help this issue.If not covered than please send in Medroxypro gesterone 2.5mg PO nightly.Wi ll f/u x 3mos if not working.If working will send update & we can refill. [id number] Leticia Barrera [facility] [address] [place] [address] 04/27/2022 15:56:08 04/27/2022 16:51:58 Gynecologic examination [id number] Z01.419 Suggested Calcium with Vitamin D 1200-1500m g daily. Patient advised to get an annual flu shot in the fall and she could obtain at [facility] or [facility] care clinic. Also to obtain TDap vaccinatio n if you have not had one in the last 10 years. Recommend yearly mammograms . Encouraged monthly self breast exams. Encourage safe sexual practices, to use condoms and limit partners if not already in a monogamous relationsh ip. Engage in daily exercise of low impact aerobic exercise 45-60 minutes 4-5 times weekly. Avoid tobacco and illicit drugs as well as using moderation with alcohol intake less than 1-2 8 oz beverages daily. This lifestyle behavior pattern will lead to less health conditions and longer life span. If BMI greater than 25 weight watchers or dietary consult advised. All questions have been answered. Patient appears to understand informatio n, but if you have any questions please call or respond to this email.Pap/ hpv sentSTD Screen declinedGe netic Screen discussedC olon Screen PCPDexa Screen naRoutine Labs PCPMammo ordered Menopausal symptom 86678 002 N95.1 [facility] metal taste in mouth is a menopause sx as it seems to be cyclic.PCP has worked her up for other issues [id number] Leticia Barrera , [facility] [address] [address] 04/29/2023 09:26:16 04/29/2023 13:00:06 Gynecologic examination [id number] Z01.419 Z11.51 Suggested Calcium with Vitamin D 1200-1500m g daily. Patient advised to get an annual flu shot in the fall and she could obtain at [facility] or [facility] take care clinic. Also to obtain TDap vaccinatio n if you have not had one in the last 10 years. Recommend yearly mammograms . Encouraged monthly self breast exams. Encourage safe sexual practices, to use condoms and limit partners if not already in a monogamous relationsh ip. Engage in daily exercise of low impact aerobic exercise 45-60 minutes 4-5 times weekly. Avoid tobacco and illicit drugs as well as using moderation with alcohol intake less than 1-2 8 oz beverages daily. This lifestyle behavior pattern will lead to less health conditions and longer life span. If BMI greater than 25 weight watchers or dietary consult advised. All questions have been answered. Patient appears to understand informatio n, but if you have any questions please call or respond to this email.Pap/ hpv sent (prefers yearly paps)STD Screen declinedGe netic Screen discussedC olon Screen PCPDexa Screen naRoutine Labs PCPMammo ordered Screening mammography 24 555839 Z12.31 Menopausal symptom 28926 002 N95.1 Having some vasomotor sx's more frequently .Uncertain if she would want to pursue HRT of any type since her mother had breast cancer that was estrogen based; but neg genetic screening. We discussed genetic screening for her today; informatio n given & would like to consider this option.We discussed risks/bene fits of use of HRT with current risk factors and family history.If interested we will talk more about this option.Non -hormonal option SSRI's are not an option due to MDD/Sprava to use.Possib ly Veozah could be used if has good liver function.W ill let her reach out when decides wants to further discuss these options. We discussed Menopausal Hormone therapy (MHT) for women with intact uterus with the goals of reliving vaso-motor sx's using estrogen/p rogestin therapy (EPT) using lowest doses for shortest duration in women 40-59yo. Contraindi cations include: Hx of DVT or thrombolic events, High cholestero l, Hx of breast cancer, known CHD, active liver disease, unexplaine d vag bleeding, high risk endometria l cancer, TIA. Side effects can include but are not limited to: Irregular vag bleeding,, breast tenderness , nausea, weight changes, libido changes, nausea. Adverse Rxn: Elevated BP migraine w/ visual changes, breast cancer dx, MA/stroke, DVT/PE, Endometria l cancer. Please contact office with any new or worsening side effects or adverse reactions. Or if a medical emergency please go to nearest ED/[facility] for further evaluation . [id number] DANYELLE GILLETTE NP [place] [address] [address] 05/30/2024 16:03:46 05/30/2024 16:44:50 Gynecologic examination 59135515 Z01.419 Annual gynecologi dionna exam performed. Patient will come back in a year unless there are new symptoms. Suggest Calcium with Vitamin D if not eating in diet. Patient advised to get annual flu shot. Recommend yearly physicals and perform monthly breast exams. Genetic testing is available for patients with family history of cancer. Engage in safe sexual practices, use condoms. Encouraged to have daily exercise. Avoid tobacco and illicit drugs, moderation of alcohol. If BMI greater than 25 dietary consult advised. If you have any questions please call or email. mammogram- DUE - mammogram ordered; pt to schedule colon cancer screening - DUE; pt wants to have a colonoscop y instead of cologuard. GI referral sent. DEXA scan- n/a Pap smear- pap w/ HPV collected laboratory evaluation - PCP STI testing - declined Screening colonoscopy 44 9641231 Z12.11 GI referral Screening mammography 24 659941 Z12.31 Family his tory of breast cancer 429708779 Z80.3 We discussed genetic screening with Jeanna for her today d/t FH of breast cancer; informatio n given & would like to consider this option. Pt to call if she wants to come in for bloodwork. Health Concerns Section Related Observation LastModified by Organization Detai ls LastModified Time None Recorded Concern Status LastModified by Organization Details LastModified Time None Recorded Advance Directives Directive N: Payers Encounter Date Sequence Insurance Name Policy Number Policy Villagomez Covered Member ID Villagomez Member ID Guarantor Name 04/15/2020 1 [place] [id number] Gallito Toussaint [id number] Mari Toussaint 03/31/2021 1 [employer] (POS) [id number] Mari Lowne [id number] Mari Toussaint 04/27/2022 1 [employer] (POS) [id number] Mari Toussaint [id number] Mari Lowne 04/29/2023 1 [employer] (POS) [id number] Mari Lowne [id number] Mari Wagnerehne 05/30/2024 2 () Mari Lowne [id number] Mari Lowne 05/30/2024 1 [employer] (POS) [id number] Mari Lowne [id number] Mari Toussaint Notes Date Note Type Note Provider Name and Address Organization Details Recorded Time 04/15/2020 text/html This patient is a 50-year-old female presents for postop follow-up. She is 1 week postop from a laparoscopic tubal ligation and endometrial ablation. She has some watery vaginal discharge. She denies any foul odor to it. She states that is clear. She has no nausea, vomiting, fever, chills. She is recovering normally. Her incisions are clean dry and intact. She has no complaints. Tony Patel MD [address], [place], [address], [facility] 04/15/2020 09:52:38 03/31/2021 text/html Annual GYNReport ed bypatient.Menstrua l cycle:Normal menses (amenorrheic with ablation) Urinary symptoms:No hematuria; No incontinence Vulva:No genital lesion Vagina:Normal vaginal discharge Breast:No breast pain; No breast lump; No nipple discharge Current Contraception:Not sexually active Sexual complaints:No sexual complaints; No pain during intercourse; Normal libido Menopausal Symptoms:Normal vaginal lubrication;Insomn ia due to night sweats Psychological symptoms:No depression; No anxiety; No PMDD Preventive measures:Encourage self breast examination; Encourage regular exercise; Encourage no tobacco use; Encourage regular mammograms starting age 40; Followed with Q3 year pap smear and high risk HPV typing; Needs to schedule mammogram; Up to date on colonoscopy screening USMAN Garcia [address], [place], [address], [facility] 03/31/2021 10:12:16 04/27/2022 text/html Annual GYNReport ed bypatient.History: no gynecologic complaints Menstrual cycle:Normal menses (Amenorrheic after ablation of endo lining) Urinary symptoms:No hematuria; No incontinence Vulva:No genital lesion Vagina:Normal vaginal discharge Breast:No breast pain; No breast lump; No nipple discharge Current Contraception:Maribel h control not practiced (-not SA) Sexual complaints:No sexual complaints; No pain during intercourse; Normal libido Menopausal Symptoms:No menopausal symptoms; Normal vaginal lubrication Psychological symptoms:No depression; No anxiety; No PMDD Preventive measures:Encourage self breast examination; Encourage regular exercise; Encourage no tobacco use; Encourage regular mammograms starting age 40; Followed with yearly pap smears; Needs to schedule mammogram; Up to date on colonoscopy screening Leticia Barrera [facility] [address], [place], [address], [facility] 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.Menopaus al Symptoms:no menopausal symptoms; normal vaginal lubrication Vaginal Bleeding:history of menopause having occurred; no history of post menopausal bleeding Urinary Symptoms:no hematuria; no incontinence; no nocturia; no urinary frequency Vulva:no genital lesion; no vulvar atrophy Vagina:normal vaginal discharge; no vaginal atrophy Breast:no breast lump; no nipple discharge; no breast pain Sexual Complaints:no sexual complaints Psychological Symptoms:no depression; no anxiety Preventive Measures:encourage regular mammograms starting age 40; encourage self breast examination; encourage regular exercise; encourage no tobacco use; needs to schedule mammogram (Scheduled); needs to schedule colonoscopy (Working with PCP) Leticia Barrera [facility] [address], [place], [address], [facility] 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.Menopaus al Symptoms:normal vaginal lubrication;hot flashes Vaginal Bleeding:history of menopause having occurred; no history of post menopausal bleeding Urinary Symptoms:no hematuria; no incontinence; no nocturia; no urinary frequency Vulva:no genital lesion; no vulvar atrophy Vagina:normal vaginal discharge; no vaginal atrophy Breast:no breast lump; no nipple discharge; no breast pain Sexual Complaints:no sexual complaints;inhibit ed or absent female orgasm Psychological Symptoms:no depression; no anxiety Preventive Measures:encourage regular mammograms starting age 40; encourage self breast examination; encourage regular exercise; encourage no tobacco use Patient presents for annual well woman exam.Hx endometrial ablation.Pt states that she may be interested in genetic testing d/t FH of breast cancer; her mother just from breast cancer this month (BRCA neg), but she does not know if other family members were BRCA neg. DANYELLE GILLETTE NP [address], [place], [address], [facility] 05/30/2024 16:43:25 OBGyn Episode Ob Episode Information Episode Created Date Number of Fetuses Patient Bloodtype Patient rh Status Prepregnancy Weight lbs Domestic Partner Domestic Partner Phone Father Name Abstract Clerk Status 03/03/20 20 1 CLOSED Fetus Data First Name Last Name Admitted to NICU Weight (g) Sex Living Outcome Pediatric Complications Fetus ID Race Codes Race Delivery Type [id number] Vaginal Delivery Micha Calculation Initial Micha Date Initial Exam Date Initial Exam Provider Initial Ultrasound Date Last Menstrual Period Date Ultra Sound Weeks Gestation 0 Eighteen To Twenty Week Micha Update Ultra Sound Date Fundal Height At Umbil Quickening Date Ultra Sound Latest Weeks Gestation Final Micha Confirmed By Final Micha Confirmed Date Final Micha Date Ultra Sound Latest Days Gestation 0 0 Menstrual History Last Menstrual Date Menses Monthly On Bcp Conception Prior Menses Frequency Hcg Plus Date Menarche Onset Age Delivery Information Delivery Date Delivery Type Labor Anesthesia Weeks Gestation Incision Type Labor Labor Length Hrs Delivered By Post Complications Tubal Sterilization Discharge Date Comments 4 Discharge Information Feeding Method Contraceptive Method Maternal HG B and HCT Levels Ob Episode Information Episode Created Date Number of Fetuses Patient Bloodtype Patient rh Status Prepregnancy Weight lbs Domestic Partner Domestic Partner Phone Father Name Abstract Clerk Status 03/03/20 20 1 CLOSED Fetus Data First Name Last Name Admitted to NICU Weight (g) Sex Living Outcome Pediatric Complications Fetus ID Race Codes Race Delivery Type [id number] Vaginal Delivery Micha Calculation Initial Micha Date Initial Exam Date Initial Exam Provider Initial Ultrasound Date Last Menstrual Period Date Ultra Sound Weeks Gestation 0 Eighteen To Twenty Week Micha Update Ultra Sound Date Fundal Height At Umbil Quickening Date Ultra Sound Latest Weeks Gestation Final Micha Confirmed By Final Micha Confirmed Date Final Micha Date Ultra Sound Latest Days Gestation 0 0 Menstrual History Last Menstrual Date Menses Monthly On Bcp Conception Prior Menses Frequency Hcg Plus Date Menarche Onset Age Delivery Information Delivery Date Delivery Type Labor Anesthesia Weeks Gestation Incision Type Labor Labor Length Hrs Delivered By Post Complications Tubal Sterilization Discharge Date Comments 3 Discharge Information Feeding Method Contraceptive Method Maternal HG B and HCT Levels
--- OUTSIDE RECORDS SUMMARY | 2024-08-13 07:47 | XMS_ITS | Referral Summary ---
Author Organization [facility] Let Address [address] [place] [address] Care Team Providers Care Area Operations Manager Name Role Phone Unavailable Primary Care Provider Unavailabl e Source Comments [facility],non-owned Affiliates and Associated Physician Practices is amultiple site organization consisting of ambulatory clinics and hospital sitesin [place], [place], [place] and [place]. This disclosure is being madepursuant to the Care Everywhere program and may not contain all information available regarding this patient. Last updated 18.[facility] Medications * Be aware that medications may not be up to date on this document. Alwaysverify current medications with the patient. Medication Sig Dispensed Refills Start Date End Date Status venlafaxine (EFFEXOR) 37.5 MG tablet Take 37.5 mg by mouth daily. Active ibuprofen (ADVIL) 200 MG capsule Take 200 mg by mouth. 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
--- OUTSIDE RECORDS SUMMARY | 2024-08-13 07:47 | XMS_ITS ---
Author Organization [facility] [employer] Address [address] [place] [address] Care Team Providers Care [facility] Administrator Name Role Phone Rhina Gabriel MD Primary Care Provider Sea Dent Unavailable [phone] Allergies Allergen (clinical drug ingredient) Drug/Non Drug Allergy documented on EMR Reaction Allergy Type Onset Date Status Substance with sulfonamide structure and antibacterial mechanism of action (substance) Sulfa Antibiotics Unknown Drug Allergy Active REASON FOR VISIT Follow up, Depression screening positive, MIPS BP NORMAL, PSYCHOTHERAPY W/PATIENT W/E M Medications Medication SIG (Take, Route, Fr equency, Duration) Notes Start Date End Date Status Auvelity 45-105 MG 1 tablet Oral twice a day for 30 days 05/25/2024 Active Auvelity 45-105 MG 1 tablet in the morn ing Orally Once a day for 30 days Active Social History Tobacco Use: Social History Observation Description Date Details (start date - stop date) Never Smoker NA - NA Sex Assigned At : Social History Observation Description Sex Assigned At Female Tobacco Control (Standard) Question Answer Notes Tobacco use: Nonsmoker Vital Signs Blood pressure systolic 115 mm Hg 07/12/19 25 Blood pressure diastolic 79 mm Hg 025 Heart Rate 77 /min 07/12/2024 Height 68.00 in 07/12/2024 Weight 139 lbs 07/12/2024 BMI 21.13 kg/m2 07/12/2024 Height-cm 172.72 cm 07/12/2024 Weight-kg 63.05 kg 07/12/2024 Encounters Encounter Location Date Provider Diagnosis [facility] [employer] [facility] [address] [place] [address] 07/12/2024 Sea Chang Major depressive disorder, recurrent severe without psychotic features F33.2 ; Generalized anxiety disorder F41.1 and Adjustment disorder, unspecified F43.20 Assessments Encounter Date Diagnosis (ICD Code) Assessment Notes Treatment Notes Treatment Clinical Notes Section Notes 07/12/2024 Major depressive disorder, recurrent severe without psychotic features (ICD-10 - F33.2) Electronic Prior Authorization was requested for Auvelity 45-105 MG Tablet Extended Release. Provider can order medication once approval received. Grief and Family Dynamics - Assessment: Patient is dealing with the grief of losing her mother and navigating complex family dynamics related to her new relationship. Patient reports difficulty with her brother regarding mother's belongings and property. - Plan: - Encourage open communication with family members and consider family therapy to address concerns and facilitate understanding. Anxiety and Attachment Issues - Assessment: Patient reports anxiety, separation anxiety, and attachment issues in her new relationship, likely related to past trauma and loss. Patient experiences heightened anxiety when her partner is ill, relating it to her late 's illness. - Plan: - Continue current medication (Abilify) as needed for anxiety management. - Encourage patient to engage in individual therapy with a focus on addressing attachment issues and anxiety related to her new relationship. Medication Management - Assessment: Patient has a supply of Abilify and does not require a new prescription at this time. Patient is currently taking one tablet of Abilify per day, primarily for daytime anxiety. - Plan: - Instruct patient to contact the clinic if she needs a refill in the future, and the prescription will be sent to [place] [facility] as needed. Follow-up - Plan: - Schedule a follow-up appointment in two months (September) to assess the patient's progress and address any ongoing concerns. - Encourage patient to reach out to the clinic if any issues arise before the scheduled follow-up appointment. Family Relationships - Plan: - Discuss strategies for introducing the patient's new partner to her adult children, potentially starting with individual meetings. - Encourage patient to have open conversations with her children about the seriousness of her new relationship and its impact on future living arrangements. 07/12/2024 Generalized anxiety disorder (ICD-10 - F41.1) Grief and Family Dynamics - Assessment: Patient is dealing with the grief of losing her mother and navigating complex family dynamics related to her new relationship. Patient reports difficulty with her brother regarding mother's belongings and property. - Plan: - Encourage open communication with family members and consider family therapy to address concerns and facilitate understanding. Anxiety and Attachment Issues - Assessment: Patient reports anxiety, separation anxiety, and attachment issues in her new relationship, likely related to past trauma and loss. Patient experiences heightened anxiety when her partner is ill, relating it to her late 's illness. - Plan: - Continue current medication (Abilify) as needed for anxiety management. - Encourage patient to engage in individual therapy with a focus on addressing attachment issues and anxiety related to her new relationship. Medication Management - Assessment: Patient has a supply of Abilify and does not require a new prescription at this time. Patient is currently taking one tablet of Abilify per day, primarily for daytime anxiety. - Plan: - Instruct patient to contact the clinic if she needs a refill in the future, and the prescription will be sent to [place] [facility] as needed. Follow-up - Plan: - Schedule a follow-up appointment in two months (September) to assess the patient's progress and address any ongoing concerns. - Encourage patient to reach out to the clinic if any issues arise before the scheduled follow-up appointment. Family Relationships - Plan: - Discuss strategies for introducing the patient's new partner to her adult children, potentially starting with individual meetings. - Encourage patient to have open conversations with her children about the seriousness of her new relationship and its impact on future living arrangements. 07/12/2024 Adjustment disorder, unspecified (ICD-10 - F43.20) Grief and Family Dynamics - Assessment: Patient is dealing with the grief of losing her mother and navigating complex family dynamics related to her new relationship. Patient reports difficulty with her brother regarding mother's belongings and property. - Plan: - Encourage open communication with family members and consider family therapy to address concerns and facilitate understanding. Anxiety and Attachment Issues - Assessment: Patient reports anxiety, separation anxiety, and attachment issues in her new relationship, likely related to past trauma and loss. Patient experiences heightened anxiety when her partner is ill, relating it to her late 's illness. - Plan: - Continue current medication (Abilify) as needed for anxiety management. - Encourage patient to engage in individual therapy with a focus on addressing attachment issues and anxiety related to her new relationship. Medication Management - Assessment: Patient has a supply of Abilify and does not require a new prescription at this time. Patient is currently taking one tablet of Abilify per day, primarily for daytime anxiety. - Plan: - Instruct patient to contact the clinic if she needs a refill in the future, and the prescription will be sent to [place] pharmacy as needed. Follow-up - Plan: - Schedule a follow-up appointment in two months (September) to assess the patient's progress and address any ongoing concerns. - Encourage patient to reach out to the clinic if any issues arise before the scheduled follow-up appointment. Family Relationships - Plan: - Discuss strategies for introducing the patient's new partner to her adult children, potentially starting with individual meetings. - Encourage patient to have open conversations with her children about the seriousness of her new relationship and its impact on future living arrangements. Plan Of Treatment Medication Medication Name Sig Start Date Stop Date Notes Auvelity 45-105 MG 1 tablet in the morn ing Orally Once a day for 30 days Treatment Notes Assessment Notes Major depressive disorder, r ecurrent severe without psychotic features Electronic Prior Authorization was reque [facility] for Auvelity 45-105 MG Tablet Extended Release. Provider can order medication once approval received. Next Appt Details Follow Up: 2 Months, Reason: Provider Name:Sea Chang , 09/10/2024 03:30:00 PM, [address], [address], [place], [address], Progress Notes * NOBLE BRITT EDOB:1969 (54 yo F)Acc No.[id number]:07/12/2024 Patient: Valerie CHUNSANDOVAL CorralesNOBLE E Provider: Brett CHANG MD :1970 A ge:54 Y S ex:Female Date:07/12/2024 Address:[address] [place], [place] [id number] Pcp:Rhina Gabriel MD Subjective: * Chief Complaints: * F ollow upDepression screening positiveMIPS BP NORMALPSYCHOTHERAPY W/PATIENT W/E M * HPI: D epression Screening: The note is transcribed using speech recognition software. It is a reflection of a visit with the patient. It might have some inaccuracy, including medication names and transcribing errors, though efforts have been made to correct them. Chief Complaint: Anxiety, separation anxiety, and attachment issues Patient Background: The patient is a individual in a new relationship of 8 months. She reports experiencing anxiety, separation anxiety, and attachment issues related to her new relationship. These symptoms are likely exacerbated by past trauma and the loss of her previous partner, Gallito. She expresses fear of losing her new partner and becomes anxious when he experiences any illness. The patient is also dealing with grief following the recent loss of her mother. She mentions difficulties in managing her brother's behavior due to his paranoia issues while handling their mother's belongings and property. Family Dynamics: The patient's family dynamics are strained due to her new relationship. Her adult children, particularly Elliott, are struggling to accept the situation. This is causing stress and conflict within the family, as the patient feels torn between moving forward with her life and facing resistance from her loved ones. She reports feeling fragmented and guilty about the situation, especially considering the traumatic events her younger son has experienced in recent years. The patient mentions that her father is also having difficulty accepting her new relationship, which adds to her stress. She expresses frustration with the need to juggle different aspects of her life to accommodate her family's discomfort. Review of Systems (Psychiatric): - Experiencing grief, anxiety, separation anxiety, attachment issues - Anxiety is particularly severe during the day but improves in the evening when she is with her partner Current Medications: - Abilify, 1 tablet daily in the morning to manage anxiety symptoms Medical History: - Anxiety - Separation anxiety - Attachment issues - Grief Social History: - Marital status: , in a new relationship (8 months) - Family structure: Two adult sons (Td and Elliott), [id number] - Social support: New partner (Pradeep), father, [id number], friends - Stress levels: High, dealing with family resistance to new relationship, grief from loss of mother - Coping mechanisms: Medication (Abilify) for anxiety, therapy (mentions talking to [facility]) Additional Details: - The patient's anxiety is particularly severe during the day but improves in the evening when she is with her partner. - She is dealing with family resistance to her new relationship, particularly from her adult children and father. - The patient is experiencing grief from the recent loss of her mother. - She mentions difficulties in managing her brother's behavior due to his paranoia issues. - The patient feels torn between moving forward with her life and facing resistance from her loved ones. - She reports feeling fragmented and guilty about the situation with her family. GAURAV-7 (2018 Edition) F eeling nervous, anxious, or on edge?More than half the days, N ot being able to stop or control worrying N early every day,?Worrying too much about different things S everal days, T rouble relaxing M ore than half the days, B eing so restless that it is hard to sit still S everal days, B ecoming easily annoyed or irritable S ever days, F eeling afraid as if something awful might happen S ever, I f you checked any problems, how difficult have they made it for you to do your work, take care of things at home, or get along with other people? S omewhat difficult.? [place]-Suicide Severity Rating Scale: Suicide Risk (CSRS-screener) i n the past one month Have you wished you were or wished you could go to sleep and not wake up? Y es, i n the past one month Have you actually had any thoughts of killing yourself? N o. D epression screening: PHQ-9 L ittle interest or pleasure in doing things S everal days, F eeling down, depressed, or hopeless S everal days, T rouble falling or staying asleep, or sleeping too much S everal days, F eeling tired or having little energy N ot at all, P oor appetite or overeating S everal days, F eeling bad about yourself or that you are a failure, or have let yourself or your family down S everal days, T rouble concentrating on things, such as reading the newspaper or watching television S ever days, M oving or speaking so slowly that other people could have noticed; or the opposite, being so fidgety or restless that you have been moving around a lot more than usual N ot at all, T houghts that you would be better off or of hurting yourself in some way S everal days (Consider Suicide Assessment Risk), T otal Score 7 , I nterpretation M ild Depression. I ntervention D epression Screening Findings P ositve, F ollow-Up for Depression M ental health treatment assessment, Patient follow-up to return when and if necessary, S uicide Risk Assessment Performed , A dditional Evaluation for Depression P sychiatric interview and evaluation, N sandra of the standardized tool used for adult depression screening: P atient Health Questionnaire (PHQ-9). P sychotherapy with Med eval: Therapy with Med eval P sychotherapy with Medication management Y es, P sychotherapy done Time Spent Minute 1 6 Min, T ype of therapy done S upportive Therapy. * ROS: P erformance Met: N ormal blood pressure reading documented, follow-up not required ( G8783). * Medical History: * Surgical History: * Hospitalization/Major Diagno stic Procedure: * Social History: T obacco Use: T obacco Control (Standard) T obacco use: N onsmoker. M igrated Social History: M igrated Social History: Alcohol Intake: Occasional 01/25/2022,Tobacco Years: Never smoker 04/20/2021. M iscellaneous: A dvance Care Planning A re you your own decision-maker Y es, D o you have Power of General Accountant for Health or Medical? N o. * Medications: T akingAuvelity 45-105 MG Tablet Extended Release 1 tablet Oral twice a day Medication List reviewed and reconciled with the patientTaking Auvelity 45-105 MG Tablet Extended Release 1 tablet Oral twice a day Medication List reviewed and reconciled with the patient * Allergies: S ulfa Antibioticsno[Allergies Verified] Objective: * Vitals: B P:115/79mm Hg, HR:77/min, Wt:139lbs, Wt-k.05 kg, Ht: 68.00 in, Ht-cm: 172.72 cm, BMI:21.13Index, Body Surface Area: 1.74. * Examination: G eneral Examination: M ental Status Examination: Patient reports experiencing grief related to her mother's and anxiety concerning her new relationship, which she attributes to past trauma and fear of loss. She describes symptoms of separation anxiety and attachment issues. The patient also expresses stress related to family dynamics and resistance to her new relationship. She is currently managing these symptoms with medication (Abilify) and reports reduced anxiety in the presence of her partner in the evenings. Patient appears to be coping with multiple stressors, including grief, family conflicts, and relationship challenges. Patient demonstrates insight into her anxiety and its potential sources. No apparent cognitive impairment or thought disturbances noted. Vital Signs: review the notes for vitals Physical Examination: no physical examination noted Diagnostic Test Results and Labs: no diagnostic tests or labs noted. Assessment: * Assessment: 1. M ajor depressive disorder, recurrent severe without psychotic features - F33.2 (Primary)? 2. G eneralized anxiety disorder - F41.1 3 . A djustment disorder, unspecified - F43.20 Grief and Family Dynamics - Assessment: Patient is dealing with the grief of losing her mother and navigating complex family dynamics related to her new relationship. Patient reports difficulty with her brother regarding mother's belongings and property. - Plan: - Encourage open communication with family members and consider family therapy to address concerns and facilitate understanding. Anxiety and Attachment Issues - Assessment: Patient reports anxiety, separation anxiety, and attachment issues in her new relationship, likely related to past trauma and loss. Patient experiences heightened anxiety when her partner is ill, relating it to her late 's illness. - Plan: - Continue current medication (Abilify) as needed for anxiety management. - Encourage patient to engage in individual therapy with a focus on addressing attachment issues and anxiety related to her new relationship. Medication Management - Assessment: Patient has a supply of Abilify and does not require a new prescription at this time. Patient is currently taking one tablet of Abilify per day, primarily for daytime anxiety. - Plan: - Instruct patient to contact the clinic if she needs a refill in the future, and the prescription will be sent to [place] pharmacy as needed. Follow-up - Plan: - Schedule a follow-up appointment in two months (September) to assess the patient's progress and address any ongoing concerns. - Encourage patient to reach out to the clinic if any issues arise before the scheduled follow-up appointment. Family Relationships - Plan: - Discuss strategies for introducing the patient's new partner to her adult children, potentially starting with individual meetings. - Encourage patient to have open conversations with her children about the seriousness of her new relationship and its impact on future living arrangements. Plan: * Treatment: * Procedure Codes: 9 0833 PSYCHOTHERAPY W/PATIENT W/E&M SRVCS 30 [id number] BEHAV ASSMT W/SCORE & DOCD/STAND [id number] NORMAL BP READING DOC F/U NOT RQR * Follow Up: 2 Months * Billing Information: * Visit Code: 53176 OFFICE OUTPATIENT VISIT 25 MINUTES DETAILED HISTORY AND EXAM/MODERATE MEDICAL DECISION MAKING. * Procedure Codes: 02448 PSYCHOTHERAPY W/PATIENT W/E&M SRVCS 30 MIN. 77960 BEHAV ASSMT W/SCORE & DOCD/STAND INSTRUMENT. G8783 NORMAL BP READING DOC F/U NOT RQR. 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 History and Physical Notes * HPI (History of Present Illness) Category Sub-Category Detail Notes Category Not es Depression screening PHQ-9 Little inte rest or pleasure in doing things: Several days Feeling down, depressed, or hopeless: Se veral days Trouble falling or staying asleep, or sl eeping too much: Several days Feeling tired or having little energy: N ot at all Poor appetite or overeating: Several day s Feeling bad about yourself o r that [...] or of hurting yourself in some way: Several days (Consider Suicide Assessment Risk) Total Score: 7 Interpretation: Mild Depression Intervention Depression Screening Findings: P ositve Follow-Up for Depression: Me ntal health treatment assessment, Patient follow-up to return when and if necessary Suicide Risk Assessment Performed: Additional Evaluation for De pression: Psychiatric interview and evaluation Name of the standardized too l used for adult depression screening:: Patient Health Questionnaire (PHQ-9) Depression Screening GAURAV-7 (2018 Edition) Feelin g nervous, anxious, or on edge: More than half the days Not being able to stop or control worryi ng: Nearly every day Worrying too much about different things : Several days Trouble relaxing: More than half the day s Being so restless that it is hard to sit still: Several days Becoming easily annoyed or irritable: Se veral days Feeling afraid as if something awful lucie ht happen: Several days If you checked any problems, how difficult have they made it for you to do your work, take care of things at home, or get along with other people?: Somewhat difficult Psychotherapy with Med eval Therapy with Med jer l Psychotherapy with Medication management: Yes Psychotherapy done Time Spent Minute: 16 Min Type of therapy done: Supportive Therapy [place]-Suicide Severity Rating Scale Suicide Risk (CSRS-screener) in the past one month Have you wished you were or wished you could go to sleep and not wake up?: Yes in the past one month Have y ou actually had any thoughts of killing yourself?: No Examination Category Sub-Category Detail Notes Category Not es General Examination Mental Status Examination: Patient reports experiencing grief related to her mother's and anxiety concerning her new relationship, which she attributes to past trauma and fear of loss. She describes symptoms of separation anxiety and attachment issues. The patient also expresses stress related to family dynamics and resistance to her new relationship. She is currently managing these symptoms with medication (Abilify) and reports reduced anxiety in the presence of her partner in the evenings. Patient appears to be coping with multiple stressors, including grief, family conflicts, and relationship challenges. Patient demonstrates insight into her anxiety and its potential sources. No apparent cognitive impairment or thought disturbances noted. Vital Signs: review the notes for vitals Physical Examination: no physical examination noted Diagnostic Test Results and Labs: no diagnostic tests or labs noted
--- OUTSIDE RECORDS SUMMARY | 2024-08-13 07:47 | XMS_ITS | Clinical Summary ---
Author Organization [facility] Address [address] [place] [address] Care Team Providers Care Chemist Food Name Role Phone Rhina Gabriel MD Primary Care Provider [phone] Social History Tobacco Use Types Packs/Day Years Used Date Smoking Tobacco: Never Assessed Comments No Sex and Gender Information Value Date Recorded Sex Assigned at Not on file Legal Sex Female 7:05 PM CDT Gender Identity Not on file Sexual Orientation Not on file Plan of Treatment Health Maintenance Due Date Last Done Comments Cervical Cancer Screening Pa p Smear (Age 30 to 64) Every 3 Years 1970 Colorectal Cancer Screening Colonoscopy (10 Years) 1970 Annual Physical 1973 Hepatitis C 1988 DTaP, Tdap and Td Vaccines ( 1 - Tdap) 1989 Hepatitis B Vaccines (1 of 3 - 19+ 3-dose series) 1989 Cervical Cancer Screening Pa p with HPV Testing (Age 30 to 64) Every 5 Years 2000 Cervical Cancer Screening with HPV 2000 Mammogram Screening 2010 Zoster Vaccines (1 of 2) 2020 COVID-19 Vaccine (2023-2 5 season) 2024 Influenza Adult (#1) 2024 Meningococcal B Vaccine Aged Out No l onger eligible based on patient's age to complete this topic Meningococcal Vaccine Aged Out No kwame naman eligible based on patient's age to complete this topic Pneumococcal Vaccine: Pediat rics (0 to 5 Years) and At-Risk Patients (6 to 64 Years) Aged Out No longer eligible b ased on patient's age to complete this topic RSV Immunizations Under 20 Months Aged Out No longer eligible based on patient's age to complete this topic Insurance [facility] Care Teams Chemist Food Relationship Specialty Start Date End Date Rhina Gabriel MD [address] [place] [address] PCP - General INTERNAL MEDICINE 01/16/19
--- OUTSIDE RECORDS SUMMARY | 2024-08-13 07:47 | XMS_ITS | Clinical Summary ---
Author Organization [facility] Address [address] [place] [address] Care Team Providers Care Online Marketing Analyst Name Role Phone Unavailable Primary Care Provider Unavailabl e Source Comments [facility],non-owned Affiliates and Associated Physician Practices is amultiple site organization consisting of ambulatory clinics and hospital sitesin [place], [place], [place] and [place]. This disclosure is being madepursuant to the Care Everywhere program and may not contain all information available regarding this patient. Last updated 18.[facility] Medications * Be aware that medications may [...] 06/10/2010 Depression 06/10/2010 Systemic lupus erythematosus 06/10/2010 Family History Medical History Relation Name Comments Other Brother heart defect, g out, alcoholic Other Father gout, Raynauds Other Mother scoliosis, arth ritis Other Son mild scoliosis, Raynauds Relation Name Status Comments Brother Father Mother Son Social History Tobacco Use Types Packs/Day Years [...] Comments Blood Pressure 110/72 06/10/2010 1:47 PM CUSTOMER SUPPORT PROFESSIONAL Pulse 78 06/10/2010 1:47 PM CUSTOMER SUPPORT PROFESSIONAL Temperature - - Respiratory Rate - - Oxygen Saturation - - Inhaled Oxygen Concentration - - Weight 68.9 kg (152 lb) 06/10/2010 1:47 PM CUSTOMER SUPPORT PROFESSIONAL Height 172.7 cm (5' 8 ) 06/10/2010 1:47 PM CUSTOMER SUPPORT PROFESSIONAL Body Mass Index 23.11 06/10/2010 1:47 PM CUSTOMER SUPPORT PROFESSIONAL Plan of Treatment Health Maintenance Due Date Last Done Comments COLOGUARD (AGES 45-75) - COL ON CA SCREENING 1970 COLON MONITORING 1970 COLONOSCOPY - COLON CA SCREENING 1970 CT COLONOGRAPHY - COLON CA SCREENING 1970 Colorectal Cancer Screening 1970 FIT - COLON CA SCREENING 1970 FLEX SIG - COLON CA SCREENING 1970 LIPID TESTING 1970 MAMMOGRAM 1970 PAP SMEAR 1970 HIV SCREENING 1985 HEPATITIS C SCREENING 03/15/1988 DTAP/TDAP/TD VACCINES (1 - Tdap) 1989 HEPATITIS B VACCINE (1 of 3 - 19+ 3-dose series) 1989 PNEUMOCOCCAL VACCINE 50+ (1 of 1 - PCV) 2020 ZOSTER VACCINE (1 of 2) 2020 COVID-19 VACCINE ( - 2023-2 5 season) 2024 INFLUENZA VACCINE (#1) 2024 DEPRESSION SCREENING 07/04/2024 HIB VACCINE Aged Out No longer eligi ble based on patient's age to complete this topic HPV VACCINE Aged Out No longer eligi ble based on patient's age to complete this topic MENINGOCOCCAL (Group B) VACCINE Aged Out No longer eligible based on patient's age to complete this topic MENINGOCOCCAL VACCINE Aged Out No kwame naman eligible based on patient's age to complete this topic PNEUMOCOCCAL VACCINE Aged Out No long er eligible based on patient's age to complete this topic
--- OUTSIDE RECORDS SUMMARY | 2024-08-13 07:47 | XMS_ITS ---
Author Organization [facility] Address [address] [facility] [address] [place] [address] Care Team Providers Care Curriculum And Assessment Director Name Role Phone Rhina Gabriel MD Primary Care Provider Sea Dent Unavailable [phone] Medications Medication SIG (Take, Route, Frequency, Duration) Notes Start Date End Date Status Escitalopram Oxalate 10 MG 1 tablet Oral Once a day for 90 days 04/11/2024 Active Social History Sex Assigned At : Social History Observation Description Sex Assigned At Female Encounters Encounter Location Date Provider Diagnosis [facility] [address] [facility] [address] [place] [address] 04/11/2024 Sea Palumbo Generalized anxiety disorder F41.1 Assessments Encounter Date Diagnosis (ICD Code) Assessment Notes Treatment Notes Treatment Clinical Notes Section Notes 04/11/2024 Generalized anxiety disorder (ICD-10 - F41.1) Plan Of Treatment Medication Medication Name Sig Start Date Stop Date Notes Escitalopram Oxalate 10 MG 1 tablet Oral Once a day for 90 days 04/11/2024 Next Appt Details Provider Name:Sea Palumbo , 09/10/2024 03:30:00 PM, [address], [facility] [address], [place], [address], Progress Notes * NOBLE BRITT EDOB:1969 (54 yo F)Acc No.[id number]:04/11/2024 Patient: NOBLE FENG :1970 A ge:54 Y S ex:Female Address:[address] [place] [address], [id number] * Refills Start Escitalopram Oxalate Tablet, 10 MG, Oral, 90 Tablet, 1 tablet, Once a day, 90 days, Refills=0 Subjective: * Chief Complaints: * * Medical History: * Surgical History: * Hospitalization/Major Diagno stic Procedure: * Medications: Objective: * Vitals: * Physical Examination: Assessment: * Assessment: 1. G eneralized anxiety disorder - F41.1 (Primary) Plan: * Treatment: * Procedure Codes: * true * Date: Generated for Ella resendez/Vinita/Michelsmitting on: 0 08/13/2024 07:47 AM SHEET TURNER
--- OUTSIDE RECORDS SUMMARY | 2024-08-13 07:47 | XMS_ITS | Patient Health Summary ---
Author Organization [facility] Address [address] [place] [address] Care Team Providers Care Destination Specialist Name Role Phone Unavailable Primary Care Provider Unavailabl e Note from [facility],non-owned Affiliates and Associated Physician Practices is amultiple site organization consisting of ambulatory clinics and hospital sitesin [place], [place], [place] and [place]. This disclosure is being madepursuant to the Care Everywhere program and may not contain all information available regarding this patient. Last updated 18.[facility] Medications * Be aware that medications may not be up to date on this document. Alwaysverify current medications with the patient. * venlafaxine (EFFEXOR) 37.5 MG tablet Take 37.5 mg by mouth daily. * ibuprofen (ADVIL) 200 MG capsule Take 200 mg by mouth. As directed Active Problems Problem Noted Date Diagnosed Date [...] Comments Blood Pressure 110/72 06/10/2010 1:47 PM FORMS DESIGNER Pulse 78 06/10/2010 1:47 PM FORMS DESIGNER Temperature - - Respiratory Rate - - Oxygen Saturation - - Inhaled Oxygen Concentration - - Weight 68.9 kg (152 lb) 06/10/2010 1:47 PM FORMS DESIGNER Height 172.7 cm (5' 8 ) 06/10/2010 1:47 PM FORMS DESIGNER Body Mass Index 23.11 06/10/2010 1:47 PM FORMS DESIGNER Procedures * ROLANDO STAINING PATTERNS REFLEXED(Performed 06/10/2010) Performed for Systemic lupus erythematosus (HCC) * C-REACTIVE PROTEIN(Performed 06/10/2010) * RHEUMATOID FACTOR BLOOD QUANTITATIVE(Performed 06/10/2010) * PROTEIN ELECTROPHORESIS BLOOD(Performed 06/10/2010) Performed for Systemic lupus erythematosus (HCC) * ERYTHROCYTE SEDIMENTATION RATE(Performed 06/10/2010) Performed for Systemic lupus erythematosus (HCC) * SS-A/SS-B (SJOGREN'S) ANTIBODY PANEL(Performed 06/10/2010) Performed for Systemic lupus erythematosus (HCC) * CYCLIC CITRUL PEPTIDE ANTIBODY IGG/IGA (CCP)(Performed 06/10/2010) Performed for Systemic lupus erythematosus (HCC) * EPIFANIO ANTIBODY PANEL(Performed 06/10/2010) Performed for Systemic lupus erythematosus (HCC) * DNA ANTIBODY DOUBLE STRANDED(Performed 06/10/2010) Performed for Systemic lupus erythematosus (HCC) * CRIS BLOOD SCREEN W/REFLEX TITER(Performed 06/10/2010) Performed for Systemic lupus erythematosus (HCC) Results * CYCLIC CITRUL PEPTIDE ANTIBODY IGG/IGA (CCP) (06/10/2010 2:41 PM FORMS DESIGNER) CCP Antibodies IgG/IgA 1 0 - 19 units [facility] INSURANCE BILL Comment: Negative <20 Weak positive 20 - 39 Moderate positive 40 - 59 Strong positive >59 BLOOD SPECIMEN / Unknown 06/10/2010 2:41 PM FORMS DESIGNER 06/10/2010 9:04 PM FORMS DESIGNER Narrative Resulting Agency Comment [facility] [address] [phone] Chavez Mendez MD LAB - SEROLOGY MELY ANDINO [facility] INSURANCE BILL * (ABNORMAL) ROLANDO STAINING PATTERNS (PO REF LAB) (06/10/2010 2:41 PM FORMS DESIGNER) Homogeneous Pattern CANCELED [facility] INSURANCE BILL Comment:Result canceled by zena zamarripa ancillary Nucleolar Pattern CANCELED [facility] INSURANCE BILL Comment:Result canceled by zena zamarripa ancillary Speckled Pattern 1:320(H) LAB [facility] INSURANCE BILL Centromere Pattern CANCELED [facility] INSURANCE BILL Comment:Result canceled by zena zamarripa ancillary Note [facility] INSURANCE BILL Comment: A positive CRIS result may occur in healthy individuals or be associated with a variety of diseases. See interpre- tation below: . Pattern Antigen Detected Suggested Disease Association Homogeneous DNA(ds,ss,), High titers - SLE (Smooth) Histone Speckled Sm, JACK STRIP ASSEMBLER, SCL-70, SLE,MCTD,Scleroderma,Sjogrens SS-A/SS-B Nucleolar SCL-70, PM-1/SCL High titers Scleroderma Poly- myositis/Scleroderma Overlap Centromere Centromere PSS w/Crest syndrome variable 06/10/2010 2:41 PM FORMS DESIGNER 06/10/2010 9:04 PM FORMS DESIGNER Narrative Resulting Agency Comment [address] [phone] Chavez Mendez MD LAB - PATHOLOGY/CYT OLOGY ORDERABLES [facility] INSURANCE BILL * RHEUMATOID FACTOR BLOOD QUANTITATIVE (06/10/2010 2:41 PM FORMS DESIGNER) Rheumatoid Factor 7.8 0.0 - 13.9 IU/mL [facility] INSURANCE BILL 06/10/2010 2:41 PM FORMS DESIGNER 06/10/2010 9:04 PM FORMS DESIGNER Narrative Resulting Agency [facility] [address] [facility] [phone] Chavez Mendez MD LAB - CHEMISTRY ORD ERABLES Performing Organization Address [facility] de Phone Number [facility] INSURANCE BILL * C-REACTIVE PROTEIN (06/10/2010 2:41 PM FORMS DESIGNER) Pathologist [facility] C-Reactive Protein 1.0 0.0 - 4.9 mg/L [facility] INSURANCE BILL 06/10/2010 2:41 PM FORMS DESIGNER 06/10/2010 9:04 PM FORMS DESIGNER Narrative Resulting Agency Comment [facility] [address] [facility] [phone] Chavez Mendez MD LAB - CHEMISTRY ORD ERABLES Performing Organization Address [facility] Co de Phone Number [facility] INSURANCE BILL * CRIS BLOOD SCREEN (06/10/2010 2:41 PM FORMS DESIGNER) CRIS See patterns [facility] INSURANCE BILL Comment: Negative <1:80 Borderline 1:80 Positive >1:80 BLOOD SPECIMEN / Unknown 06/10/2010 2:41 PM FORMS DESIGNER 06/10/2010 9:04 PM FORMS DESIGNER Narrative Resulting Agency Comment [facility] [address] [facility] [phone] Chavez Mendez MD LAB - CHEMISTRY ORD ERABLES [facility] INSURANCE BILL * EPIFANIO ANTIBODY PANEL (06/10/2010 2:41 PM FORMS DESIGNER) JACK STRIP ASSEMBLER Antibody <0.2 0.0 - 0.9 AI [facility] INSURANCE BILL Glass (EPIFANIO) Antibody <0.2 0.0 - 0.9 AI [facility] INSURANCE BILL BLOOD SPECIMEN / Unknown 06/10/2010 2:41 PM FORMS DESIGNER 06/10/2010 9:04 PM FORMS DESIGNER Narrative Resulting Agency Comment [address] [phone] Chavez Mendez MD LAB - CHEMISTRY ORD ERABLES [facility] INSURANCE BILL * SJOGRENS ANTIBODY PANEL (06/10/2010 2:41 PM FORMS DESIGNER) Sjogren's Antibodies (SSA) <0.2 0.0 - 0.9 AI [facility] INSURANCE BILL Sjogren's Antibodies (SSB) <0.2 0.0 - 0.9 AI [facility] INSURANCE BILL BLOOD SPECIMEN / Unknown 06/10/2010 2:41 PM FORMS DESIGNER 06/10/2010 9:04 PM FORMS DESIGNER Narrative Resulting Agency Comment [address] [phone] Chavez Mendez MD LAB - CHEMISTRY ORD ERABLES Performing Organization Address [facility] de Phone Number [facility] INSURANCE BILL * DNA ANTIBODY DOUBLE STRAND (06/10/2010 2:41 PM FORMS DESIGNER) Anti-dsDNA Quantitative 6 0 - 9 IU/mL [facility] INSURANCE BILL Comment: Negative <5 Equivocal 5 - 9 Positive >9 BLOOD SPECIMEN / Unknown 06/10/2010 2:41 PM FORMS DESIGNER 06/10/2010 9:04 PM FORMS DESIGNER Narrative Resulting Agency Comment [address] [phone] Chavez Mendez MD LAB - HEMATOLOGY OR DERABLES Performing Organization Address [facility] Co de Phone Number [facility] INSURANCE BILL * SED RATE WESTERGREN AUTO (06/10/2010 2:41 PM FORMS DESIGNER) Erythrocyte Sedimentation Rate Westergren 7 0 - 20 mm/hr [facility] INSURANCE BILL BLOOD SPECIMEN / Unknown 06/10/2010 2:41 PM FORMS DESIGNER 06/10/2010 9:04 PM FORMS DESIGNER Narrative Resulting Agency Comment [facility] [id number] [facility] [phone] Chavez Mendez MD LAB - HEMATOLOGY OR DERABLES [facility] INSURANCE BILL * PROTEIN ELECTROPHORESIS BLOOD (06/10/2010 2:41 PM FORMS DESIGNER) Protein Total 6.9 6.0 - 8.5 g/dL [facility] INSURANCE BILL Albumin 3.9 3.2 - 5.6 g/dL [facility] INSURANCE BILL Alpha-1 Globulin 0.2 0.1 - 0.4 g/dL [facility] INSURANCE BILL Mudjp-9-Yxkawoud 0.7 0.4 - 1.2 g/dL [facility] INSURANCE BILL Beta-Globulin 0.9 0.6 - 1.3 g/dL [facility] INSURANCE BILL Gamma Globulin 1.2 0.5 - 1.6 g/dL [facility] INSURANCE BILL M-Brandon Not Observed Not Observed g/dL [facility] INSURANCE BILL Globulin Total 3.0 2.0 - 4.5 g/dL [facility] INSURANCE BILL Albumin/Globulin Ratio 1.3 0.7 - 2.0 [facility] INSURANCE BILL Please Note [facility] INSURANCE BILL Comment: Protein electrophoresis scan will follow via computer, mail, or airbrush artist photography delivery. BLOOD SPECIMEN / Unknown 06/10/2010 2:41 PM FORMS DESIGNER 06/10/2010 9:04 PM FORMS DESIGNER Narrative Resulting Agency Comment [facility] [address] [facility] [phone] Chavez Mendez MD LAB - CHEMISTRY ORD ERABLES [facility] INSURANCE BILL
== END 2024-08-13 07:42 | disposition home or self-care (01) ==
LOC: ANHIMG 07:44
PROVIDERS: PCP Internal Medicine; Visit Provider Nurse Practitioner Obstetrics & Gynecology
DX: Z12.31 Encounter for screening mammogram for malignant neoplasm of breast (principal)
CPT/HCPCS: 77063; 77067

== ENCOUNTER 2024-08-21 09:54 | Day surgery (SDC) | payer OTHER, SELFPAY ==
--- NOTE | ~2024-08-21 | XR_ITS ---
EXAMINATION: XR fluoroscopy no charge DATE: 08/21/2024 11:20 INDICATION: Bilateral coccygeal nerve block, ganglion impar block therapeutic steroid injection and S 5-Co1, Co1-Co2 and Co2-Co3. TECHNIQUE: 112 fluoroscopic images of the sacrum and coccyx were obtained during procedure performed by Dr. Christensen. Radiologist was not present for the imaging or procedure. The amount of fluoroscopy time used during this procedure was 0.5 minutes. COMPARISON: None. FINDINGS: Images demonstrate needles advanced initially through S5-Co1 with contrast injection opacifying the p resacral space. The needle was subsequently withdrawn into the disc space with contrast injection opa cifying the disc space. Subsequent images demonstrate needles advanced to the level of the Co1-Co2 an d Co2-Co3 disc spaces with injected contrast opacifying the disc space. Finally needles advanced kraig g the tip of the coccyx with contrast opacifying the surrounding soft tissues. IMPRESSION: 1. Fluoroscopy utilized during pain management procedure at the coccyx and sacrococcygeal junction. S ee procedure note for further detail. Reviewed, dictated and finalized at location A. SETTER HELPER IMPRESSION: 1. Fluoroscopy utilized during pain management procedure at the coccyx and sacr ococcygeal junction. See procedure note for further detail.
[2024-08-21 10:46] VITALS: BP 115/72; PULSE 78; RESP 15; TEMP 36.9; O2SAT 100
--- OUTSIDE RECORDS SUMMARY | 2024-08-21 10:46 | XMS_ITS | Patient Health Summary ---
Author Organization [facility] Address [address] [place] [address] Care Team Providers Care Television Parts Tester Name Role Phone Unavailable Primary Care Provider Unavailabl e Note from [facility],non-owned Affiliates and Associated Physician Practices is amultiple site organization consisting of ambulatory clinics and hospital sitesin [place], [place], [place] and [place]. This disclosure is being madepursuant to the Care Everywhere program and may not contain all information available regarding this patient. Last updated 18.[facility] Medications * Be aware that medications may [...] Comments Blood Pressure 110/72 06/10/2010 1:47 PM YARN WEIGHT AND STRENGTH TESTER Pulse 78 06/10/2010 1:47 PM YARN WEIGHT AND STRENGTH TESTER Temperature - - Respiratory Rate - - Oxygen Saturation - - Inhaled Oxygen Concentration - - Weight 68.9 kg (152 lb) 06/10/2010 1:47 PM YARN WEIGHT AND STRENGTH TESTER Height 172.7 cm (5' 8 ) 06/10/2010 1:47 PM YARN WEIGHT AND STRENGTH TESTER Body Mass Index 23.11 06/10/2010 1:47 PM YARN WEIGHT AND STRENGTH TESTER Procedures * ROLANDO STAINING PATTERNS REFLEXED(Performed 06/10/2010) [...] PEPTIDE ANTIBODY IGG/IGA (CCP) (06/10/2010 2:41 PM YARN WEIGHT AND STRENGTH TESTER) CCP Antibodies IgG/IgA 1 0 - 19 units [facility] INSURANCE BILL Comment: Negative <20 Weak positive 20 - 39 Moderate positive 40 - 59 Strong positive >59 BLOOD SPECIMEN / Unknown 06/10/2010 2:41 PM YARN WEIGHT AND STRENGTH TESTER 06/10/2010 9:04 PM YARN WEIGHT AND STRENGTH TESTER Narrative Resulting Agency Comment [facility] [address] [phone] Chavez Mendez MD LAB - SEROLOGY MELY ANDINO [facility] INSURANCE BILL * (ABNORMAL) ROLANDO STAINING PATTERNS (PO REF LAB) (06/10/2010 2:41 PM YARN WEIGHT AND STRENGTH TESTER) Homogeneous Pattern CANCELED [facility] INSURANCE BILL Comment:Result canceled by zena zamarripa ancillary Nucleolar Pattern CANCELED [facility] INSURANCE BILL Comment:Result canceled by zena zamarripa [...] titers - SLE (Smooth) Histone Speckled Sm, STEREOTYPE MOLDER, SCL-70, SLE,MCTD,Scleroderma,Sjogrens SS-A/SS-B Nucleolar SCL-70, PM-1/SCL High titers Scleroderma Poly- myositis/Scleroderma Overlap Centromere Centromere PSS w/Crest syndrome variable 06/10/2010 2:41 PM YARN WEIGHT AND STRENGTH TESTER 06/10/2010 9:04 PM YARN WEIGHT AND STRENGTH TESTER Narrative Resulting Agency Comment [address] [phone] Chavez Mendez MD LAB - PATHOLOGY/CYT OLOGY ORDERABLES [facility] INSURANCE BILL * RHEUMATOID FACTOR BLOOD QUANTITATIVE (06/10/2010 2:41 PM YARN WEIGHT AND STRENGTH TESTER) Rheumatoid Factor 7.8 0.0 - 13.9 IU/mL [facility] INSURANCE BILL 06/10/2010 2:41 PM YARN WEIGHT AND STRENGTH TESTER 06/10/2010 9:04 PM YARN WEIGHT AND STRENGTH TESTER Narrative Resulting Agency Comment [facility] [address] [facility] [phone] Chavez Mendez MD LAB - CHEMISTRY ORD ERABLES Performing Organization Address [facility] de Phone Number [facility] INSURANCE BILL * C-REACTIVE PROTEIN (06/10/2010 2:41 PM YARN WEIGHT AND STRENGTH TESTER) Pathologist [facility] C-Reactive Protein 1.0 0.0 - 4.9 mg/L [facility] INSURANCE BILL 06/10/2010 2:41 PM YARN WEIGHT AND STRENGTH TESTER 06/10/2010 9:04 PM YARN WEIGHT AND STRENGTH TESTER Narrative Resulting Agency Comment [facility] [address] [facility] [phone] Chavez Mendez MD LAB - CHEMISTRY ORD ERABLES Performing Organization Address [facility] Co de Phone Number [facility] INSURANCE BILL * CRIS BLOOD SCREEN (06/10/2010 2:41 PM YARN WEIGHT AND STRENGTH TESTER) CRIS See patterns [facility] INSURANCE BILL Comment: Negative <1:80 Borderline 1:80 Positive >1:80 BLOOD SPECIMEN / Unknown 06/10/2010 2:41 PM YARN WEIGHT AND STRENGTH TESTER 06/10/2010 9:04 PM YARN WEIGHT AND STRENGTH TESTER Narrative Resulting Agency Comment [facility] [address] [facility] [phone] Chavez Mendez MD LAB - CHEMISTRY ORD ERABLES [facility] INSURANCE BILL * EPIFANIO ANTIBODY PANEL (06/10/2010 2:41 PM YARN WEIGHT AND STRENGTH TESTER) STEREOTYPE MOLDER Antibody <0.2 0.0 - 0.9 AI [facility] INSURANCE BILL Glass (EPIFNAIO) Antibody <0.2 0.0 - 0.9 AI [facility] INSURANCE BILL BLOOD SPECIMEN / Unknown 06/10/2010 2:41 PM YARN WEIGHT AND STRENGTH TESTER 06/10/2010 9:04 PM YARN WEIGHT AND STRENGTH TESTER Narrative Resulting Agency Comment [address] [phone] Chavez Mendez MD LAB - CHEMISTRY ORD ERABLES [facility] INSURANCE BILL * SJOGRENS ANTIBODY PANEL (06/10/2010 2:41 PM YARN WEIGHT AND STRENGTH TESTER) Sjogren's Antibodies (SSA) <0.2 0.0 - 0.9 AI [facility] INSURANCE BILL Sjogren's Antibodies (SSB) <0.2 0.0 - 0.9 AI [facility] INSURANCE BILL BLOOD SPECIMEN / Unknown 06/10/2010 2:41 PM YARN WEIGHT AND STRENGTH TESTER 06/10/2010 9:04 PM YARN WEIGHT AND STRENGTH TESTER Narrative Resulting Agency Comment [address] [phone] Chavez Mendez MD LAB - CHEMISTRY ORD ERABLES Performing Organization Address [facility] de Phone Number [facility] INSURANCE BILL * DNA ANTIBODY DOUBLE STRAND (06/10/2010 2:41 PM YARN WEIGHT AND STRENGTH TESTER) Anti-dsDNA Quantitative 6 0 - 9 IU/mL [facility] INSURANCE BILL Comment: Negative <5 Equivocal 5 - 9 Positive >9 BLOOD SPECIMEN / Unknown 06/10/2010 2:41 PM YARN WEIGHT AND STRENGTH TESTER 06/10/2010 9:04 PM YARN WEIGHT AND STRENGTH TESTER Narrative Resulting Agency Comment [address] [phone] Chavez Mendez MD LAB - HEMATOLOGY OR DERABLES Performing Organization Address [facility] Co de Phone Number [facility] INSURANCE BILL * SED RATE WESTERGREN AUTO (06/10/2010 2:41 PM YARN WEIGHT AND STRENGTH TESTER) Erythrocyte Sedimentation Rate Westergren 7 0 - 20 mm/hr [facility] INSURANCE BILL BLOOD SPECIMEN / Unknown 06/10/2010 2:41 PM YARN WEIGHT AND STRENGTH TESTER 06/10/2010 9:04 PM YARN WEIGHT AND STRENGTH TESTER Narrative Resulting Agency Comment [facility] [id number] [facility] [phone] Chavez Mendez MD LAB - HEMATOLOGY OR DERABLES [facility] INSURANCE BILL * PROTEIN ELECTROPHORESIS BLOOD (06/10/2010 2:41 PM YARN WEIGHT AND STRENGTH TESTER) Protein Total 6.9 6.0 - 8.5 g/dL [facility] INSURANCE BILL Albumin 3.9 3.2 - 5.6 g/dL [facility] INSURANCE BILL Alpha-1 Globulin 0.2 0.1 - 0.4 g/dL [facility] INSURANCE BILL Vhzgw-2-Kjkuqbem 0.7 0.4 - 1.2 g/dL [facility] INSURANCE [...] scan will follow via computer, mail, or magisterial district judge delivery. BLOOD SPECIMEN / Unknown 06/10/2010 2:41 PM YARN WEIGHT AND STRENGTH TESTER 06/10/2010 9:04 PM YARN WEIGHT AND STRENGTH TESTER Narrative Resulting Agency Comment [facility] [address] [facility] [phone] Chavez Mendez MD LAB - CHEMISTRY ORD ERABLES [facility] INSURANCE BILL
--- OUTSIDE RECORDS SUMMARY | 2024-08-21 10:46 | XMS_ITS | Clinical Summary ---
Author Organization [facility] Address [address] [place] [address] Care Team Providers Care Child Therapist Name Role Phone Unavailable Primary Care Provider Unavailabl e Source Comments [facility],non-owned Affiliates and Associated Physician Practices is amultiple site organization consisting of ambulatory clinics and hospital sitesin [place], [place], [place] and [place]. This disclosure is being madepursuant to the Care Everywhere program and may not contain all information available regarding this patient. Last updated 18.[facility] Medications * Be aware that medications may [...] Comments Blood Pressure 110/72 06/10/2010 1:47 PM ROBOTIC MACHINE TENDER PRODUCTION Pulse 78 06/10/2010 1:47 PM ROBOTIC MACHINE TENDER PRODUCTION Temperature - - Respiratory Rate - - Oxygen Saturation - - Inhaled Oxygen Concentration - - Weight 68.9 kg (152 lb) 06/10/2010 1:47 PM ROBOTIC MACHINE TENDER PRODUCTION Height 172.7 cm (5' 8 ) 06/10/2010 1:47 PM ROBOTIC MACHINE TENDER PRODUCTION Body Mass Index 23.11 06/10/2010 1:47 PM ROBOTIC MACHINE TENDER PRODUCTION Plan of Treatment Health Maintenance Due Date [...]
--- OUTSIDE RECORDS SUMMARY | 2024-08-21 10:46 | XMS_ITS ---
Author Organization [facility] [employer] Address [address] [facility] [address] [place] [address] Care Team Providers Care Size Cutter Name Role Phone Rhina Gabriel MD Primary Care Provider Sea Dent Unavailable [phone] Medications Medication SIG (Take, Route, Frequency, Duration) Notes Start Date End Date Status Escitalopram Oxalate 10 MG 1 tablet Oral Once a day for 90 days 04/11/2024 Active Social History Sex Assigned At : Social History Observation Description Sex Assigned At Female Encounters Encounter Location Date Provider Diagnosis [facility] [address] [facility] [address] [place] [address] 04/11/2024 Sea Palumbo Generalized anxiety disorder F41.1 [...] [facility] [address], [place], [address], Progress Notes * NOBLE BRITT EDOB:1969 (54 yo F)Acc No.[id number]:04/11/2024 Patient: NOBLE FENG :1970 A ge:54 Y S ex:Female Address:[address] [place] [address], [address] * Refills Start Escitalopram Oxalate Tablet, 10 [...] Date: Generated for Ella resendez/Vinita/Michelsmitting on: 0 08/21/2024 10:46 AM AUTOMOTIVE SERVICE ASSISTANT
--- OUTSIDE RECORDS SUMMARY | 2024-08-21 10:46 | XMS_ITS | Referral Summary ---
Author Organization [facility] [employer] Address [address] [place] [address] Care Team Providers Care Professor Of Marketing Name Role Phone Unavailable Primary Care Provider Unavailabl e Source Comments [facility] [employer],non-owned Affiliates and Associated Physician Practices is amultiple site organization consisting of ambulatory clinics and hospital sitesin [place], [place], [place] and [place]. This disclosure is being madepursuant to the Care Everywhere program and may not contain all information available regarding this patient. Last updated 18.[facility] Medications * Be aware that medications may [...] Comments Blood Pressure 110/72 06/10/2010 1:47 PM ROLLER PRINTING SUPERVISOR Pulse 78 06/10/2010 1:47 PM ROLLER PRINTING SUPERVISOR Temperature - - Respiratory Rate - - Oxygen Saturation - - Inhaled Oxygen Concentration - - Weight 68.9 kg (152 lb) 06/10/2010 1:47 PM ROLLER PRINTING SUPERVISOR Height 172.7 cm (5' 8 ) 06/10/2010 1:47 PM ROLLER PRINTING SUPERVISOR Body Mass Index 23.11 06/10/2010 1:47 PM ROLLER PRINTING SUPERVISOR Plan of Treatment Not on file
--- OUTSIDE RECORDS SUMMARY | 2024-08-21 10:46 | XMS_ITS ---
Author Organization [facility] Address [address] [place] [address] Care Team Providers Care Desk Interviewer Name Role Phone Rhina Gabriel MD Primary Care Provider Sea Dent Unavailable [phone] Allergies Allergen (clinical drug ingredient) Drug/Non Drug [...] 05/23/2024 Encounters Encounter Location Date Provider Diagnosis [facility] [address] [place] [address] 05/23/2024 Sea Chang Major depressive disorder, recurrent [...] Plan: - Schedule a follow-up appointment with Rievra in the next couple of weeks. - [...] 09/10/2024 03:30:00 PM, [address], [facility] [address], [place], [address], Progress Notes * NOBLE BRITT EDOB:1969 (54 yo F)Acc No.[id number]:05/23/2024 Patient: NOBLE FENG Provider: Brett CHANG MD :1970 A ge:54 Y S ex:Female Date:05/23/2024 Address:[address] [place], [place] [id number] Pcp:Rhina Gabriel MD Subjective: * Chief Complaints: [...] P ositve, F ollow-Up for Depression [facility] health treatment assessment, Patient follow-up to return when and if necessary, S uicide Risk Assessment Performed , A dditional Evaluation for Depression P sychiatric interview and evaluation, N sandra of the standardized tool used for adult depression screening: [facility] Health Questionnaire (PHQ-9). C [place]-Suicide Severity Rating [...] es, D o you have Power of Professor Of Psychiatry for Health or Medical? N o. * [...] Weeks * Billing Information: * Visit Code: 54737 OFFICE OUTPATIENT VISIT 25 MINUTES DETAILED HISTORY AND EXAM/MODERATE MEDICAL DECISION MAKING. * Procedure Codes: 87992 BEHAV ASSMT W/SCORE & DOCD/STAND INSTRUMENT. * NT SOURCER Sign off status: Completed true * Provider: Brett CHANG MD Date: 07/23/2023 Generated for Ella resendez/Vinita/eTransmitting on: 0 08/21/2024 10:46 AM TALENT SOURCER History and Physical Notes * HPI (History [...] Screening Findings: P osfredy Follow-Up for Depression: [facility] treatment assessment, Patient follow-up to return [...] get along with other people?: Somewhat difficult [place]-Suicide Severity Rating Scale Suicide Risk (CSRS-screener) in [...]
--- OUTSIDE RECORDS SUMMARY | 2024-08-21 10:47 | XMS_ITS ---
Author Organization [facility] Address [address] [place] [address] Care Team Providers Care Customer Complaint Service Supervisor Name Role Phone Rhina Gabriel MD Primary Care Provider Sea Dent Unavailable [phone] Allergies Allergen (clinical drug ingredient) Drug/Non Drug [...] 07/12/2024 Encounters Encounter Location Date Provider Diagnosis [facility] [address] [place] [address] 07/12/2024 Sea Chang Major depressive disorder, recurrent [...] and the prescription will be sent to [facility] as needed. Follow-up - Plan: - [...] and the prescription will be sent to [facility] as needed. Follow-up - Plan: - [...] and the prescription will be sent to [facility] as needed. Follow-up - Plan: - [...] psychotic features Electronic Prior Authorization was reque [facility] for Auvelity 45-105 MG Tablet Extended Release. Provider can order medication once approval received. Next Appt Details Follow Up: 2 Months, Reason: Provider Name:Sea Chang , 09/10/2024 03:30:00 PM, [address], [address], [place], [address], Progress Notes * NOBLE BRITT EDOB:1969 (54 yo F)Acc No.[id number]:07/12/2024 Patient: Valerie CHUNSANDOVAL CorralesNOBLE E Provider: Brett CHANG MD :1970 A ge:54 Y S ex:Female Date:07/12/2024 Address:[address] [place], [place] [phone] Pcp:Rhnia Gabriel MD Subjective: * Chief Complaints: * [...] structure: Two adult sons (Td and Elliott), etqrnxsi-vp-oiz - Social support: New partner (Pradeep), father, syvlct-xy-vqj, friends - Stress levels: High, dealing with [...] es, D o you have Power of Check Services Clerk for Health or Medical? N o. * [...] and the prescription will be sent to [facility] as needed. Follow-up - Plan: - [...] 9 0833 PSYCHOTHERAPY W/PATIENT W/E&M SRVCS 30 [id number] BEHAV ASSMT W/SCORE & DOCD/STAND [id number] NORMAL BP READING DOC F/U NOT RQR * Follow Up: 2 Months * Billing Information: * Visit Code: 76055 OFFICE OUTPATIENT VISIT 25 MINUTES DETAILED HISTORY AND EXAM/MODERATE MEDICAL DECISION MAKING. * Procedure Codes: 70753 PSYCHOTHERAPY W/PATIENT W/E&M SRVCS 30 MIN. 09635 BEHAV ASSMT W/SCORE & DOCD/STAND INSTRUMENT. G8783 NORMAL BP READING DOC F/U NOT RQR. * HEALTH AIDE CAREGIVER Sign off status: Completed true * Provider: Brett CHANG MD Date: 0 07/12/2024 Generated for Ella resendez/Vinita/eTransmitting on: 0 08/21/2024 10:47 AM HOME HEALTH AIDE CAREGIVER History and Physical Notes * HPI (History [...] Min Type of therapy done: Supportive Therapy [place]-Suicide Severity Rating Scale Suicide Risk (CSRS-screener) in [...]
--- OUTSIDE RECORDS SUMMARY | 2024-08-21 10:47 | XMS_ITS | Data Portability ---
Author Organization [facility] Address [address] [place] [address] Care Team Providers Care Cheese Weigher Name Role Phone LAURIE BYNUM Primary Care Provider [phone] Assessment Encounter Date Assessment Date Assessment LastModified [...] a year unless there are new symptoms. [email or web address] Not available 05/30/2024 15:56:55 Plan of Treatment Reminders Order Date Submit Date Provider Last Modified By Organization Details Last Modified Time Details Appointments None recorded. Lab pap, IG + HR HPV - HPV regardless but if HPV is positive need subtyping 16,18/45 2023 024 [facility] (Lab), [address], [place], [address], 18:42:54 lh + FSH, serum 2021 022 [email or web address], [address], [place], [address], 2 15:16:07 estradiol, serum 2021 022 [email or web address], [address], [place], [address], 2 15:16:07 Referral None recorded. Procedures colonoscopy screening (PROC) [address] [facility], [address], [address], [place], [address], 4 16:41:26 Surgeries None recorded. Imaging MAMMO, screening, digital, bilateral 2023 024 [facility], [address], [place], [address], 4 04:02:23 MAMMO, screening, bilateral [address], [address], [place], [address], 4 16:16:03 Medication Orders Prometrium 100 mg capsule 2020 021 [id number], [address] [facility], [place], [place], [id number], 3 09:38:16 Patient TargetsNo targets recorded. Patient InstructionsNo instructions recorded. Reason for Referral None Reported. Results Created Date Observation Date Name Description Value Unit Range Abnormal Flag Note LastModifiedBy Organization Detail LastModifiedTime 08/21/19 21 08/21/2020 , kailey howard md interpretati on Not Available [facility] [address], [place], [address], 03/05/2020 10:38:28 04/27/20 22 04/27/2022 IMAGE GUIDE D PAP AND HPV REGAR DLESS image guided Pap, HPV regardless of Pap result SEE RESULT S BELOW CASE REPOR T: Cytol ogy Gynec ologi dionna Repor t Case: [id number] Autho nba odonnell Provi castillo: Fabiano butler , Mattie Landin cted: 04/27 1709 CONCRETE BUCKET UNLOADER Order ing Locat ion: [place] Patho logy [...] as clini grabiel chen nted. Not Available [facility] [address] [place], [address], 05/03/2022 14:46:33 04/29/20 23 04/29/2023 IMAGE GUIDE D PAP AND HPV REGAR DLESS image guided Pap, HPV regardless of Pap result SEE RESULT S BELOW CASE REPOR T: Cytol ogy Gynec ologi dionna Repor t Case: [id number] Autho nba odonnell Provi castillo: Mika Berry Colle cted: 04/29 1413 CONCRETE BUCKET UNLOADER Order ing Locat ion: [place] Patho logy [...] as clini grabiel chen nted. Not Available [facility] (Lab) [address] [facility], [place], [address], 05/04/2023 16:57:58 05/30/20 24 05/30/2024 IMAGE GUIDE D PAP AND HPV REGAR DLESS image guided Pap, HPV regardless of Pap result SEE RESULT S BELOW CASE REPOR T: Cytol ogy Gynec ologi dionna Repor t Case: [id number] Autho rizin g Provi castillo: Dermo dy, Danyelle , ANP, GROUND SUPPORT EQUIPMENT MECHANIC Colle cted: 05/30 1646 Order ing Locat [...] as clini grabiel chen nted. Not Available [facility] (Lab) [address] [facility], [place], [address], 06/11/2024 18:42:54 04/01/20 20 03/31/2020 MAMMO , scree rui, bilat eral No observ ation record ed. [facility] [address], [place], [address], 04/01/2020 21:32:53 05/07/20 21 05/07/2021 MAMMO , scree rui, bilat eral No observ ation record ed. [address] [facility] [address], [place], [address], 05/15/2021 13:49:35 05/14/20 22 05/14/2022 MAMMO , scree rui, bilat eral No observ ation record ed. [address] [facility] [address], [place], [address], 04/29/2023 11:30:01 08/13/19 25 08/13/2024 imagi ng/di agnos tic resul t No observ ation record ed. [facility] [address], [place], [address], 08/13/2024 14:33:30 Result Notes None recorded. Problems Name Problem SNOMED Code Status Onset Date Resolution Date Notes Provider Name and Address Organization Details Recorded Time Female genital organ symptoms 265622925 Completed 201403/30/2021 Pelvic Pain;Prac apurva ID: 0001 Noelle reeder [facility] 14:58:51 Menstrua tion finding Completed 201403/30/2021 Menorrhag ia Excessive Menstruat ion;Pract ice ID: 0001 Noelle reeder [facility] 14:59:08 Left lower quadrant pain 184752457 Completed 201403/30/2021 Abdominal pain, left lower quadrant; Practice ID: 0001 Noelle reeder [facility] 14:59:02 Uterine leiomyom a 97927258 Completed 201403/30/2021 Leiomyoma of uterus, unspecifi ed;Practi ce ID: 0001 Noelle reeder [facility] 14:59:[address] Concept Completed 201403/30/2021 Encntr for duct cleaner exam (general) (routine) w/o abn findings; Practice ID: 0001 Noelle reeder [facility] 14:59:22 Pelvic and perineal pain 305983631 Completed 201403/30/2021 Pelvic and perineal pain;Prac apurva ID: 0001 Noelle reeder [facility] 14:59:10 Finding of regulari ty of menstrua l cycle Completed 201703/30/2021 Irregular menstruat ion, unspecifi ed;Practi ce ID: 0001 Noelle reeder [facility] 14:58:58 Adult health examinat ion Completed 201303/30/2021 Routine general medical examinati on at a health care facility; Practice ID: 0001 Noelle reeder [facility] 14:58:44 Speciali zed medical examinat ion Completed 201303/30/2021 Routine gynecolog ical examinati on;Practi ce ID: 0001 Noelle reeder [facility] 14:59:24 Screenin g for malignan t neoplasm of cervix Completed 201303/30/2021 Pap Smear;Pra ctice ID: 0001 Noelle reeder [facility] 14:59:14 Screenin g for malignan t neoplasm of rectum Completed 201303/30/2021 Screening for malignant neoplasms of the rectum;Pr actice ID: 0001 Noelle reeder [facility] 14:59:[address] Concept Completed 201703/30/2021 Encntr for general adult medical exam w/o abnormal findings; Practice ID: 0001 Noelle reeder [facility] 14:59:21 Imaging result abnormal 321094220 Completed 201703/30/2021 Abnormal findings on diagnosti c imaging of body structure s;Practic e ID: 0001 Noelle Taylor [facility] 14:59:01 Finding of pattern of menstrua l cycle 962775069 Completed 201703/30/2021 Excessive and frequent menstruat ion with irregular cycle;Pra ctice ID: 0001 Noelle Taylor [facility] 14:58:55 Finding of pattern of menstrua l cycle Completed 201903/30/2021 Other specified irregular menstruat ion;Pract ice ID: 0001 Noelle Taylor [facility] 14:58:53 Pregnanc y test negative 463612767 Completed 201903/30/2021 Encounter for test, result negative; Practice ID: 0001 Noelle reeder [facility] 14:59:11 Uses combined oral contrace ption 252117644 Completed 201903/30/2021 Encounter for initial prescript ion of contracep tive pills;Pra ctice ID: 0001 Noelle Taylor [facility] 14:58:50 Mammogra phy abnormal 786786393 Completed 201303/30/2021 Unspecifi ed abnormal mammogram ;Recorded Elsewhere : No Locati on: [facility] So urce: EHR Chron ic: N Practic e ID: 0001 Bill able Time: 11:51:29 AM Noelle reeder [facility] 14:59:04 Body mass index 25-29 - overweig ht 238608519 Completed 201403/30/2021 Body mass index (BMI) 27.0-27.9 , adult;Rec orded Elsewhere : No Locati on: [facility] So urce: EHR Chron ic: N Practic e ID: 0001 Bill able Time: 08:30:00 AM Noelle Taylor [facility] 14:58:47 Radiolog ic finding 762207569 Completed 201803/30/2021 Oth abn and inconclus gamaliel findings on dx imaging of breast;Re corded Elsewhere : No Locati on: [facility] So urce: EHR Chron ic: N Practic e ID: 0001 Bill able Time: 08:20:08 AM Noelle reeder [facility] 14:58:48 Atypical glandula r cells on cervical Papanico laou smear 771012655 Completed 201103/30/2021 Abnormal glandular Papanicol aou smear of cervix;Re corded Elsewhere : No Locati on: [facility] So urce: EHR Chron ic: N Practic e ID: 0001 Bill able Time: 02:00:00 PM Noelle Taylor [facility] 14:58:45 Right lower quadrant pain 795456791 Completed 201203/30/2021 Abdominal pain, right lower quadrant; Recorded Elsewhere : No Locati on: [facility] So urce: EHR Chron ic: N Practic e ID: 0001 Bill able Time: 05:00:00 PM Noelle Taylor [facility] 14:59:13 Problem Notes None recorded. Procedures Surgical History Date Name Laterality Status Provider Name and Address Organization Details Recorded Time 04/29/20 23 Date of Last Pap Smear completed Zenia Long [facility] 05/30/2024 15:57:22 05/14/20 22 Date of Last Mammogram completed Chelsi Fournier [facility] 04/29/2023 09:38:57 07/04/19 22 Date of Last Colonoscopy completed Chelsi Fournier [facility] 04/29/2023 09:39:11 04/09/20 20 endometrial biopsy completed Noelle Taylor [facility] 04/26/2022 17:34:53 04/09/20 20 LAPAROSCOPIC TUBAL LIGATION AND ABLATION (SURG) completed Ashleigh Leyva [facility] 12/16/2020 13:00:25 Imaging Results Imaging Date Name Status LastModified by Organiz ation Details LastModified Time 03/31/2020 MAMMO, screening, bilateral completed [facility] [address], [place], [address], 04/01/2020 21:32:53 05/07/2021 MAMMO, screening, bilateral completed [address] [facility] [address], [place], [address], 05/15/2021 13:49:35 05/14/2022 MAMMO, screening, bilateral completed [address] [facility] [address], [place], [address], 04/29/2023 11:30:01 08/13/2024 imaging/diagno stic result active [facility] [address], [place], [address], 08/13/2024 14:33:30 Procedure Notes None recorded. Medical Equipment None Reported. Allergies Allergen ID Allergen Name Allergen Category Reaction Reaction Severity Criticality Documentation Date Start Date Code Code System Note Provider Name and Address Organization Details Recorded Time 1856 Substance with sulfonami de structure and antibacte rial mechanism of action (substanc e) medicatio n Not available Not available Not available 02/28/2020 58106 8003 SNOMED Mari reeder [facility] 0 16:01:05 Medications Name Sig [...] Prescrib ed Elsewher e: Yes Loca tion: [facility] odify By: keaton webb DateTime : 06/21/20 [...] Prescrib ed Elsewher e: Yes Loca tion: [facility] odify By: fanta weller DateTime : 05/09/20 [...] Prescrib ed Elsewher e: No Locat ion: [facility] odify By: garima moore DateTime : 09/13/19 08:15:00 AM Not Available Not Available Not Available escitalop charito 5 mg/5 mL oral solution take 10 millilit er by oral route every day 03/30 completed Prescrib ed Elsewher e: Yes Loca tion: [facility] odify By: keaton webb DateTime : 07/12/19 02:30:00 PM Not Available [...] oral route every day 07/12 completed Prescrib kristen Mariano e: No Locat ion: [facility] Diane odace By: keaton webb DateTime : 06/15/20 10:30:00 AM Not Available Not Available Not [...] Updated DateTime 03/31/2021 168.28 cm 24.3 kg/m2 22283.04 g 119 mm[Hg] 73 mm[Hg] [facility] 1 09:44:24 Date Recorded Body height Body mass index (BMI) Body weight Systolic blood pressure Diastolic blood pressure Provider Name and Address Organization Details Last Updated DateTime 04/27/2022 168.91 cm 27 kg/m2 12654.7 g 120 mm[Hg] 76 mm[Hg] [facility] 16:29:28 Date Recorded Body height Body mass index (BMI) Body weight Systolic blood pressure Diastolic blood pressure Provider Name and Address Organization Details Last Updated DateTime 04/29/2023 168.91 cm 26.9 kg/m2 21880.11 g 133 mm[Hg] 77 mm[Hg] Chelsi Fournier [facility] 3 09:37:39 Date Recorded Body height Body mass index (BMI) Body weight Systolic blood pressure Diastolic blood pressure Provider Name and Address Organization Details Last Updated DateTime 04/15/2020 170.18 cm 25.7 kg/m2 64102.15 g 108 mm[Hg] 75 mm[Hg] Rosalinda Zepeda [facility] 0 09:31:12 Date Recorded Body height Body mass index (BMI) Body weight Systolic blood pressure Diastolic blood pressure Provider Name and Address Organization Details Last Updated DateTime 05/30/2024 168.91 cm 22.1 kg/m2 66253.34 g 109 mm[Hg] 70 mm[Hg] Zenia Long [facility] 4 16:10:43 Social History Question Answer Notes LastModified by Organizat ion Details LastModified Time Tobacco Smoking Status Never Smoker Christina Sommer varinder, [facility] 04/29/2023 09:27:27 Do You Have [...] Or The Highest Degree You Have Received? 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 [id number] Information not available 03/31/2021 Do You Use [...] 16:06:25 Father Malignant neoplasm of urinary bladder [email or web address] Not available 2023 16:04:47 Paternal Uncle Hypertensive disorder [email or web address] Not available 2019 16:06:25 Paternal Uncle Aneurysm of heart [email or web address] Not available 2023 16:04:47 Paternal Grandmother Heart disease jgumber Not available 2019 16:06:47 Paternal Grandfather Heart disease jgumber Not available 2019 16:06:47 Maternal Grandmother Family history of breast cancer [email or web address] Not available 2023 16:04:47 Maternal Aunt Family history of aneurysm of blood vessel of brain [email or web address] Not available 2023 16:04:47 Maternal Aunt Family history of breast cancer Not available 2023 16:04:47 Maternal Grandfather Family history of aneurysm of blood vessel of brain [email or web address] Not available 2023 16:04:47 Mother Family history of breast cancer [email or web address] Not available 2023 16:04:47 Medical History Condition [...] SNOMED-CT Code Diagnosis ICD10 Code Diagnosis Note [id number] Leticia Barrera , [facility] [address] [address] 03/03/2020 09:18:18 03/03/2020 10:11:03 Gynecologic examination 28373907 Z01.419 Suggested Calcium with Vitamin D 1200-1500m g daily. Patient advised to get an annual flu shot in the fall and she could obtain at [facility] or [facility] clinic. Also to obtain TDap vaccinatio n [...] to this email. Abnormal u terine bleeding [id number] 9100 N93.9 R10.2 Patient has has hx [...] [place]. [id number] Antonia Taylor [facility] [address] [address] 03/05/2020 09:36:44 03/05/2020 10:59:53 Abnormal uterine bleeding 0621111585 9100 N93.9 [id number] Tony Patel MD [facility] [address] [address] 03/17/2020 16:28:43 03/17/2020 18:12:36 Menorrhagia 513648260 N92.0 Uterine leiomyoma 024897 05 D25.9 This patient is a 49-year-ol [...] will go ahead and schedule the procedure. [id number] Tony Patel MD [facility] [address] [address] 04/04/2020 17:21:05 04/05/2020 12:13:07 Abnormal uterine bleeding 9178961593 9100 N93.9 Menorrhagia 593781817 N9 2.0 this patient is a 50-year-ol d female presents for preoperati ve care. She has menorrhagi a and abnormal uterine bleeding. We have agreed to perform laparoscop ic bilateral tubal ligation and endometria l ablation with hysterosco py. She understand s the risks, benefits, and alternativ es. She has completed the informed consent process and is ready to proceed [id number] Tony Patel MD [facility] [address] [address] 04/10/2020 09:04:28 04/10/2020 09:06:16 [id number] Tony Patel MD [facility] [address] [address] 04/15/2020 09:07:48 04/15/2020 09:56:50 Postoperative care 542829765 Z48.89 This patient is a 50-year-ol d [...] and intact. She has no complaints . [id number] Leticia Barrera , [facility] [address],[place] [address] 03/31/2021 09:16:32 03/31/2021 10:15:18 Gynecologic examination 94034113 Z01.419 Suggested Calcium with Vitamin D 1200-1500m g daily. Patient advised to get an annual flu shot in the fall and she could obtain at [facility] or [facility] care clinic. Also to obtain TDap vaccinatio [...] neoplasm of breast in first degree relative 668753284 Z80.3 Pts mother had Estrogen responsive tumor & was placed on TamoxifenW e discussed genetic testing today & previously ; but opts to defer for now.Henrryin g the the very recent loss of her spouse (1wk ago) from cancer. Night sweats 75568536 R6 1 Trial for night sweats.On SSRI [...] will send update & we can refill. [id number] Leticia Barrera , [facility] [address] [address] 04/27/2022 15:56:08 04/27/2022 16:51:58 Gynecologic examination 46403875 Z01.419 Suggested Calcium with Vitamin D 1200-1500m g daily. Patient advised to get an annual flu shot in the fall and she could obtain at [facility] or [facility] care clinic. Also to obtain TDap vaccinatio [...] Screen naRoutine Labs PCPMammo ordered Menopausal symptom 92578 002 N95.1 [facility] if metal taste in mouth is a menopause sx as it seems to be cyclic.PCP has worked her up for other issues [id number] Lteicia Barrera , AND[facility] [address] [address] 04/29/2023 09:26:16 04/29/2023 13:00:06 Gynecologic examination 48925637 Z01.419 Z11.51 Suggested Calcium with Vitamin D 1200-1500m g daily. Patient advised to get an annual flu shot in the fall and she could obtain at [facility] or [facility] care clinic. Also to obtain TDap vaccinatio [...] naRoutine Labs PCPMammo ordered Screening mammography 24 126812 Z12.31 Menopausal symptom 63772 002 N95.1 Having some vasomotor sx's more [...] migraine w/ visual changes, breast cancer dx, [place]/stroke, DVT/PE, Endometria l cancer. Please contact office with any new or worsening side effects or adverse reactions. Or if a medical emergency please go to nearest ED/[facility] care for further evaluation . [id number] DANYELLE GILLETTE NP [facility] [address] [address] 05/30/2024 16:03:46 05/30/2024 16:44:50 Gynecologic examination 61043934 Z01.419 Annual gynecologi dionna exam performed. Patient [...] STI testing - declined Screening colonoscopy 44 0119673 Z12.11 GI referral Screening mammography 24 060417 Z12.31 Family his tory of breast cancer 182348557 Z80.3 We discussed genetic screening with Asp[facility] for her today d/t FH of breast [...] ID Guarantor Name 04/15/2020 1 [place] [id number] Gallito Wagnercaroline [id number] Mari Wagnerehteto 03/31/2021 1 [employer] (POS) [id number] Mari Antoni Koehne [id number] Mari [address] Koehne 04/27/2022 1 [employer] (POS) [id number] Mari E Koehne [id number] Mari [address] Koehne 04/29/2023 1 [employer] (POS) [id number] Mari E Koehne [id number] Mari [address] Koehne 05/30/2024 2 () Mari Wagnerehne [id number] Mari [address] Koehne 05/30/2024 1 [employer] (POS) [id number] Mari [address] Koehne [id number] Mari Lowne Notes Date Note Type Note Provider Name [...] complaints. Tony Patel MD [address], [place], [address], [facility] 04/15/2020 09:52:38 03/31/2021 text/html Annual GYNReport [...] to date on colonoscopy screening Leticia Barrera [facility] [address], [place], [address], [facility] 03/31/2021 10:12:16 04/27/2022 text/html [...] to date on colonoscopy screening Leticia Barrera [facility] [address], [place], [address], [facility] 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 04/29/2023 11:34:07 05/30/2024 text/html Annual Highway Landscape Architect Post-MenopausalRep orted bypatient.Menopaus al Symptoms:normal vaginal lubrication;hot [...] members were BRCA neg. DANYELLE GILLETTE NP [address], [place], [address], [facility] 05/30/2024 16:43:25 OBGyn Episode Ob Episode Information Episode Created Date Number of Fetuses Patient Bloodtype Patient rh Status Prepregnancy Weight lbs Domestic Partner Domestic Partner Phone Father Name Textile Machine Mechanic Status 03/03/20 20 1 CLOSED Fetus Data [...] Domestic Partner Domestic Partner Phone Father Name Textile Machine Mechanic Status 03/03/20 20 1 CLOSED Fetus Data [...]
--- OUTSIDE RECORDS SUMMARY | 2024-08-21 10:47 | XMS_ITS | Data Portability ---
Author Organization [facility], 800 [facility] Neurology ([place]) Address [address] [place] [address] Care Team Providers Care Edge Kitter Name Role Phone LAURIE BYNUM Primary Care Provider LAURIE BYNUM Referring Provider [phone] Assessment Encounter Date Assessment Date Assessment LastModified [...] rule out cervical radiculopathy. 3. May try fibo-apx-mqdytrz Aleve 220 mg tablets 1-2 tablets up [...] on this date of service including both kjbt-eu-ccnq and svw-wsai-zb-face time excluding any separately reportable services. nv [email or web address] Not available 01/14/2024 19:18:30 Plan of Treatment Reminders Order Date Submit Date Provider Last Modified By Organization Details Last Modified Time Details Appointments None recorded. Lab CBC 2023 024 Sc Only - Sc Laboratory, [address] [place] [address], [address], 4 08:50:16 CMP, serum or plasma 2023 024 [id number] [facility] Only - [facility], [address] [place] [address], [address], 4 08:50:16 ESR (erythrocyt e sedimentati on rate), blood 2023 024 [id number] [facility] Only - [facility] Laboratory, [address] [place] [address], [address], 4 08:50:16 unlisted lab - CRP ([facility] only) 2023 024 [id number] Sc Only - Sc Laboratory, [address] [place] [address], [address], 4 08:50:08 CRIS (antinuclea r antibodies) screen, serum 2023 024 [id number] Sc Only - Sc Laboratory, [address] [place] [address], [address], 4 08:50:09 C3 (complement ), serum or plasma 2023 024 [id number] Sc Only - Sc Laboratory, [address] [place] [address], [address], 4 08:50:09 C4 (complement ), serum or plasma 2023 024 [id number] Sc Only - Sc Laboratory, [address] [place] [address], [address], 4 08:50:09 DNA double strand Ab, QL, serum 2023 024 Sc Only - [facility] Laboratory, [address] [place] [address], [address], 4 08:50:16 Referral None recorded. Procedures None recorded. Surgeries None recorded. Imaging XR, cervical spine, 6 or more view 2023 024 [id number] [facility] Only - [facility] Radiology, [address] [place] [address], [address], 4 10:22:54 Medication Orders None recorded. Patient TargetsNo targets recorded. Patient InstructionsNo instructions recorded. Reason for Referral None Reported. Results Created Date Observation Date Name Description Value Unit Range Abnormal Flag Note LastModifiedBy Organization Detail LastModifiedTime 01/13/20 24 01/13/2024 XR, cervi dionna spine , 4 or [address] [address] Teleph one [phone] Name: Lizeth Toussaint 0450Ex am Date: 2023 Age: 53Phys ician: Kp gautam MD, [facility] y : 1969Ex aminat ion: XR CERVIC [...] 9:30 AM cc: [facility] [email or web address] [facility] Only - [facility] Radiology [address] [place] [address], [address], 01/15/2024 12:29:57 02/17/20 24 02/01/2024 nerve condu ction study /EMG (PROC ) No observ ation record ed. [email or web address] Not Available 2023 10:19:11 02/24/20 24 02/13/2024 MRI, cervi dionna spine , w/wo contr ast No observ ation record ed. [address], [place], [address], 02/24/2024 08:02:56 Result Notes None recorded. Problems Name Problem SNOMED Code Status Onset Date Resolution Date Notes Provider Name and Address Organization Details Recorded Time Anti-nuclea r factor detected 777620223 Active 2023 Melanie Melgar [facility] 4 01:15:54 Left cervical root neuropathy 3277576107838 9106 Active 2023 Catracho Miller MD [address] [place] [address], [address], [facility] 4 09:57:06 Osteoarthri tis 318484661 Active 2023 Catracho Miller MD [address] [place] [address], [address], [facility] 4 09:57:20 Neck pain 22816774 Active 2023 Catracho Miller MD [address] [place] [address], [address], [facility] 4 09:59:06 Problem Notes None recorded. Procedures Surgical History None recorded. Imaging Results Imaging Date Name Status LastModified by Organiz ation Details LastModified Time 01/13/2024 XR, cervical spine, 4 or 5 [email or web address] [address] [place] [address], [address], 01/15/2024 12:29:57 02/01/2024 nerve conduction study/EMG (PROC) completed [facility] Information not available 02/17/2024 10:19:11 02/13/2024 MRI, cervical spine, w/wo contrast completed [address], [place], [address], 02/24/2024 08:02:56 Procedure Notes None recorded. Medical Equipment None Reported. Allergies Allergen ID Allergen Name Allergen Category Reaction Reaction Severity Criticality Documentation Date Start Date Code Code System Note Provider Name and Address Organization Details Recorded Time 974416 Substance with sulfonami de structure and antibacte rial mechanism of action (substanc e) medicatio n hives Not available Not available 08/01/20232022 56856 8003 SNOMED React ion: Hives ; Not [...] Address Organization Details Last Updated DateTime 4 27983.5 9 g 99 /min 98 % 98 % 122 mm[Hg] 80 mm[Hg] Josee Rivas [facility] 4 09:27:13 Social History Question Answer Notes [...] not available 01/06/2024 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 Less Than 1 Time Per Week [email or web address] Information not available 01/06/2024 Do You Have A Medical Power Of Telephone Order Dispatcher? No [email or web address] Information not available 01/06/2024 What [...] Details LastModified Time Father Malignant neoplastic disease [email or web address] Not available 2023 10:32:51 Father Family history of malignant neoplasm [email or web address] Not available 2023 19:27:08 Father Hypertensive disorder [email or web address] Not available 2023 19:27:08 Mother Malignant neoplastic disease [email or web address] Not available 2023 10:32:51 Mother Family history of malignant neoplasm [email or web address] Not available 2023 19:27:08 Unspecified Relation Essential hypertension [email or web address] Not available 09/2023 10:33:10 Maternal Grandfather Family [...] SNOMED-CT Code Diagnosis ICD10 Code Diagnosis Note [id number] Catracho Miller MD [address] [place] [address] Rheumatol og ([place]) [address] [place] [address] 01/13/2024 09:13:03 01/13/2024 18:19:29 Left cervical root neuropathy 2041305951 2443252 G54.2 Anti-nucle ar factor detected 645273672 R76.8 Osteoarthritis 543879768 M19.90 Neck pain 14653744 M54.2 Health Concerns Section Related Observation LastModified by Organization Detai ls LastModified Time None Recorded Concern Status LastModified by Organization Details LastModified Time None Recorded Advance Directives Directive N: Payers Encounter Date Sequence Insurance Name Policy Number Policy Villagomez Covered Member ID Villagomez Member ID Guarantor Name 01/13/2024 1 [employer] (POS) [id number] Mari Toussaint [id number] Mari Toussaint Notes Date Note Type [...] for care. Catracho Miller MD [address] [place] [address], [phone], [facility] 01/16/2024 10:12:51 OBGyn Episode No OBEpisode recorded.
--- NOTE | 2024-08-21 10:51 | WPDHPUPDATE1 ---
History and Physical Update Update Date/Time: 08/21/24 10:51 History and Physical has been reviewed, including an updated exam of the patient. There are NO changes in the patient's condition. Risks, benefits, and alternatives have been discussed and questions answered. Patient agrees to proceed with procedure.
--- NOTE | 2024-08-21 10:52 | P.OP_ITS ---
Procedure Note - Detailed Date of Procedure 08/21/24 Pre-op Diagnosis Sacrococcygeal Disorders Post-op Diagnosis Same Procedure Performed Coccygeal Joint injections x3 (S1-Co1, Co1-2, Co2-3), bilateral coccygeal peripheral nerve block under Fluoroscopic Guidance and with Contrast Control. Surgeon Thompson Christensen MD Anesthesia Local Description of Procedure INFORMED CONSENT: Risks, benefits and alternatives to the procedure were discussed in detail with the patient who expressed explicit understanding and consent to proceed. Patient was informed verbally and in written form regarding the risks associated with the procedure including the low risk of serious infection, bleeding/bruising, allergic reaction, nerve or organ injury, paralysis, procedural site pain or discomfort, worsening pain and/or mobility, failure to treat and/or disfigurement. The patient expressed explicit understanding and consent to proceed. All materials required for the procedure were available prior to procedure start. Site and side was marked prior to procedure and confirmed in the presence of the patient. PROCEDURE IN DETAIL: The patient was brought to the procedural suite and placed in the prone position. Patient was made comfortable with use of pillows under the head/chest, hips and ankles. Skin overlying the injection site was prepared broadly with ChloraPrep applicator and draped in a sterile manner. Aseptic technique was employed throughout. The body of the sacrum was visualized in the AP view. Slight caudal tilt was utilized to optimize visualization of the joint spaces between the coccygeal vertebrae and the lateral border of the coccyx. Local anesthesia was established by infiltration with approximately 5 mL of 2% lidocaine via a 1-1/2 inch 27-gauge needle. A 22-gauge 3.5 inch Quincke spinal needle was advanced intermittently until the S1-Co1 joint was entered. Lateral view was used to confirm the appropriate positioning of the needle tip just ventral to the ventral border of the coccyx. Approximately 1 mL of Omnipaque 300 contrast dye was injected showing appropriate anterior spread without intravascular or intrathecal spread. After negative aspiration for blood or bodily fluid a total of 1 mL of 0.5% PF bupivacaine containing 1 mg of betamethasone was injected to effectively block the ganglion impar. Needle was retracted until within the joint and additional 1.0 ml of Injectate containing 1 mg of betamethasone was injected intra- articular. Needle was then withdrawn and redirected to enter the Co1-2 and Co2-3 joints respectively. An additional 0.25 mL of contrast dye was injected into each joint showing appropriate intra-articular spread without evidence of intravascular or intrathecal spread. An additional 1.0 ml with 1 mg of betamethasone was injected in each joint. Attention was then turned to completion of the bilateral coccygeal nerve block. In the AP view, needle was walked off laterally to the left of midline and anteriorly until just dorsal to the anterior border of the coccyx in the lateral view. 0.5 mL of Omnipaque 300 contrast medium was injected after negative aspiration for CSF, blood or other bodily fluid, showing appropriate spread within the targeted tissue plane. A 1 mL solution containing 1 mg of betamethasone in sterile 0.5% PF bupivacaine was injected after negative repeat aspiration to effectively block the left coccygeal nerve. Appropriate spread of the injectate was confirmed with washout of previously injected contrast. No parasthesias were elicited. Needle was removed completely intact without difficulty. The same procedure was repeated on the contralateral side, blocking the right coccygeal nerve, with identical methodology modified to compensate for contralateral location, with similar results and no evidence of complication. Patient tolerated this well. Needle was removed intact without difficulty. Images were saved and documented in the patient chart. Patient's skin was cleansed and sterile bandage applied. The patient tolerated the procedure well. The patient was transported to the recovery area in stable condition where they were observed for an appropriate amount of time prior to discharge, without evidence of complication. The patient was instructed to avoid excessive activity for the next 48 hours, including climbing and frequent use of stairs. Showers only for 48 hours. They were instructed not to drive or operate heavy machinery for 24 hours. They are to monitor for severe headaches, fevers, chills, night sweats, erythema/swelling at the site or any other signs of infection, bleeding/bruising, bowel or bladder changes as well as new pain, weakness or numbness in the upper or lower extremity. Should they notice these changes, they are instructed to call our office immediately or report directly to the nearest Emergency Department if no answer or if after posted office hours. COMPLICATIONS: None. COMMENTS: None. CONTRAST WASTED: 27.25ml of Omnipaque 300. Complications No immediate complications Condition Stable Disposition Same day [facility] Billing Surgery - Charge Forward: Surgery Billing
[2024-08-21 11:05] VITALS: BP 138/71; PULSE 70; RESP 12; O2SAT 100
[2024-08-21 11:15] VITALS: BP 112/62; PULSE 84; RESP 13; O2SAT 100
[2024-08-21] MEDS: BETAMETHASONE SODIUM PHOSPHATE PF INJ 6 MG/ML VIAL INFILTRATE (11:17)
[2024-08-21] MEDS: BUPivacaine HCL 0.5% 10 ML AMP INFILTRATE (11:18)
[2024-08-21] MEDS: LIDOCAINE 1% PF INJ 5 ML VIAL INFILTRATE (11:19)
[2024-08-21 11:21] VITALS: BP 111/60; PULSE 75; RESP 16; O2SAT 100
== END 2024-08-21 11:38 | disposition home or self-care (01) ==
PROVIDERS: PCP Internal Medicine; Visit Provider Anesthesiology Pain Medicine
PROC: (CPT 64450; principal; 2024-08-21 12:00)
DX: M53.3 Sacrococcygeal disorders, not elsewhere classified (principal)
CPT/HCPCS: 64450; 20605 ×3; 99199

== ENCOUNTER 2024-10-08 01:02 | Day surgery (SDC) | payer OTHER, SELFPAY ==
[2024-09-24 15:58] VITALS: BMI 20.5
--- OUTSIDE RECORDS SUMMARY | 2024-10-08 01:06 | XMS_ITS | Data Portability ---
Author Organization [facility], 800 [facility] Neurology ([place]) Address [address] [place] [address] Care Team Providers Care Hat Binder Name Role Phone LAURIE BYNUM Primary Care Provider LAURIE BYNUM Referring Provider Assessment Encounter Date Assessment Date Assessment LastModified [...] rule out cervical radiculopathy. 3. May try lble-wme-wtmqqnc Aleve 220 mg tablets 1-2 tablets up [...] on this date of service including both tbbg-nn-mjqp and ddx-mxqb-vn-face time excluding any separately reportable services. nv [email or web address] Not available 01/14/2024 19:18:30 Plan of Treatment Reminders Order Date Submit Date Provider Last Modified By Organization Details Last Modified Time Details Appointments None recorded. Lab CBC 2023 024 [id number] [facility] Only - [facility] Laboratory, [address] [place] [address], [address], 4 08:50:16 CMP, serum or plasma 2023 024 [id number] [facility] Only - [facility] Laboratory, [address] [place] [address], [address], 4 08:50:16 ESR (erythrocyt e sedimentati on rate), blood 2023 024 [id number] [facility] Only - [facility] Laboratory, [address] [place] [address], [address], 4 08:50:16 unlisted lab - CRP ([facility] only) 2023 024 [id number] Sc Only - Sc Laboratory, [address] [place] [address], [address], 4 08:50:08 CRIS (antinuclea r antibodies) screen, serum 2023 024 [id number] Sc Only - Sc Laboratory, [address] [place] [address], [address], 4 08:50:09 C3 (complement ), serum or plasma 2023 024 [id number] Sc Only - Sc Laboratory, [address] [place] [address], [address], 4 08:50:09 C4 (complement ), serum or plasma 2023 024 Sc Only - Sc Laboratory, [address] [place] [address], [address], 4 08:50:09 DNA double strand Ab, QL, serum 2023 024 Sc Only - Sc Laboratory, [address] [place] [address], [address], 4 08:50:16 Referral None recorded. Procedures None recorded. Surgeries None recorded. Imaging XR, cervical spine, 6 or more view 2023 024 [id number] [facility] Only - [facility] Radiology, [address] [place] [address], [address], 4 10:22:54 Medication Orders None recorded. Patient TargetsNo targets recorded. Patient InstructionsNo instructions recorded. Reason for Referral None Reported. Results Created Date Observation Date Name Description Value Unit Range Abnormal Flag Note LastModifiedBy Organization Detail LastModifiedTime 01/13/20 24 01/13/2024 XR, cervi dionna spine , 4 or [address] [address] Teleph one [phone] Name: Lizeth Toussaint 0450Ex am Date: 2023 Age: 53Phys ician: Kp gautam MD, [facility] y : 1969Ex aminat ion: XR [...] 9:30 AM cc: Page [facility] [email or web address] [facility] Only - [facility] Radiology [address] [place] [address], [address], 01/15/2024 12:29:57 02/17/20 24 02/01/2024 nerve condu ction study /EMG (PROC ) No observ ation record ed. [email or web address] Not Available 2023 10:19:11 02/24/20 24 02/13/2024 MRI, cervi dionna spine , w/wo contr ast No observ ation record ed. [address], [place], [address], 02/24/2024 08:02:56 Result Notes None recorded. Problems Name Problem SNOMED Code Status Onset Date Resolution Date Notes Provider Name and Address Organization Details Recorded Time Anti-nuclea r factor detected 873693286 Active [address] [facility] 4 01:15:54 Left cervical root neuropathy 0350252216888 9106 Active 2023 Catracho Miller MD [address] [place] [address], [address], [facility] 4 09:57:06 Osteoarthri tis 335794842 Active 2023 Catracho Miller MD [address] [place] [address], [address], [facility] 4 09:57:20 Neck pain 41106512 Active 2023 Catracho Miller MD [address] [place] [address], [address], [facility] 4 09:59:06 Problem Notes None recorded. Procedures Surgical History None recorded. Imaging Results Imaging Date Name Status LastModified by Organiz ation Details LastModified Time 01/13/2024 XR, cervical spine, 4 or 5 view [facility] [address] [place] [address], [address], 01/15/2024 12:29:57 02/01/2024 nerve conduction study/EMG (PROC) completed [facility] Information not available 02/17/2024 10:19:11 02/13/2024 MRI, cervical spine, w/wo contrast completed [address], [place], [address], 02/24/2024 08:02:56 Procedure Notes None recorded. Medical Equipment None Reported. Allergies Allergen ID Allergen Name Allergen Category Reaction Reaction Severity Criticality Documentation Date Start Date Code Code System Note Provider Name and Address Organization Details Recorded Time 705219 Substance with sulfonami de structure and antibacte rial mechanism of action (substanc e) medicatio n hives Not available Not available 08/01/20232022 37651 8003 SNOMED React ion: Hives ; Not [...] Address Organization Details Last Updated DateTime 4 92335.5 9 g 99 /min 98 % 98 % 122 mm[Hg] 80 mm[Hg] Josee Rivas [facility] 4 09:27:13 Social History Question [...] not available 01/06/2024 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 Less Than 1 Time Per Week [email or web address] Information not available 01/06/2024 Do You Have A Medical Power Of Lead Caregiver? No [email or web address] Information not available 01/06/2024 What [...] Details LastModified Time Father Malignant neoplastic disease [email or web address] Not available 2023 10:32:51 Father Family history of malignant neoplasm [email or web address] Not available 2023 19:27:08 Father Hypertensive disorder [email or web address] Not available 2023 19:27:08 Mother Malignant neoplastic disease [email or web address] Not available 2023 10:32:51 Mother Family history of malignant neoplasm [email or web address] Not available 2023 19:27:08 Unspecified Relation Essential hypertension [email or web address] Not available 09/2023 10:33:10 Maternal Grandfather Family [...] available 2023 19:27:08 Medical History Condition Response Attention-deficit Hyperactivity Disorder N High Blood Pressure N Thyroid Problems N COPD N Depression Y Anemia N Diabetes N Anxiety Disorder Y Bleeding Disorder N Arthritis N Hyperlipidemia N Cancer N Stroke N Asthma N Seizures N Heart Disease N Fibromyalgia Y Osteoporosis N Kidney Disease N Gynecological HistoryNo gynecological history recorded. Obstetrics History GPAL:G 0 P 0 0 0 0 Past Encounters Encounter ID Performer Location Encounter Start Date Encounter Closed Date Diagnosis/Indication Diagnosis SNOMED-CT Code Diagnosis ICD10 Code Diagnosis Note [id number] Catracho Miller MD [address] [place] [address] [place] ([place]) [address] [place] [address] 01/13/2024 09:13:03 01/13/2024 18:19:29 Left cervical root neuropathy 3899854475 5241150 G54.2 Anti-nucle ar factor detected 933911699 R76.8 Osteoarthritis 914863280 M19.90 Neck pain 50888075 M54.2 Health Concerns Section Related Observation LastModified by Organization Detai ls LastModified Time None Recorded Concern Status LastModified by Organization Details LastModified Time None Recorded Advance Directives Directive N: Payers Encounter Date Sequence Insurance Name Policy Number Policy Villagomez Covered Member ID Villagomez Member ID Guarantor Name 01/13/2024 1 [employer] (POS) [id number] Mari Toussaint [id number] Mari Toussaint Notes Date Note Type [...] for care. Catracho Miller MD [address] [place] [address], [phone], [facility] 01/16/2024 10:12:51 OBGyn Episode No OBEpisode recorded.
--- OUTSIDE RECORDS SUMMARY | 2024-10-08 01:07 | XMS_ITS | Clinical Summary ---
Author Organization [facility] Address [address] [place] [address] Care Team Providers Care Blending Tank Tender Name Role Phone Unavailable Primary Care Provider Unavailabl e Source Comments [facility],non-owned Affiliates and Associated Physician Practices is amultiple site organization consisting of ambulatory clinics and hospital sitesin [place], [place], [place] and [place]. This disclosure is being madepursuant to the Care Everywhere program and may not contain all information available regarding this patient. Last updated 18.[facility] Medications * Be aware that medications may [...] Comments Blood Pressure 110/72 06/10/2010 1:47 PM BIRTH CERTIFICATE CLERK Pulse 78 06/10/2010 1:47 PM BIRTH CERTIFICATE CLERK Temperature - - Respiratory Rate - - Oxygen Saturation - - Inhaled Oxygen Concentration - - Weight 68.9 kg (152 lb) 06/10/2010 1:47 PM BIRTH CERTIFICATE CLERK Height 172.7 cm (5' 8 ) 06/10/2010 1:47 PM BIRTH CERTIFICATE CLERK Body Mass Index 23.11 06/10/2010 1:47 PM BIRTH CERTIFICATE CLERK Plan of Treatment Health Maintenance Due Date [...] VACCINE (1 of 2) 2020 COVID-19 VACCINE (1 - 2023-2 5 season) 2024 DEPRESSION SCREENING 07/04/2024 INFLUENZA VACCINE (Season Ended) 2025 HIB VACCINE Aged Out No longer eligi ble based on patient's age to complete this topic HPV VACCINE Aged Out No longer eligi ble based on patient's age to complete this topic MENINGOCOCCAL (Group B) VACC INE SHARED DECISION-MAKING Aged Out No longer eligibl e based on patient's age to complete this topic MENINGOCOCCAL GROUPS A/C/Y/W VACCINE Aged Out No longer eligible b ased on patient's age to complete this topic PNEUMOCOCCAL VACCINE Aged Out No long er eligible based on patient's age to complete this topic
--- OUTSIDE RECORDS SUMMARY | 2024-10-08 01:07 | XMS_ITS | Data Portability ---
Author Organization [facility] Address [address] [place] [address] Care Team Providers Care Checker Stocker Name Role Phone LAURIE BYNUM Primary Care Provider Assessment Encounter Date Assessment Date Assessment [...] a year unless there are new symptoms. [email or web address] Not available 05/30/2024 15:56:55 Plan of Treatment Reminders Order Date Submit Date Provider Last Modified By Organization Details Last Modified Time Details Appointments None recorded. Lab pap, IG + HR HPV - HPV regardless but if HPV is positive need subtyping 16,18/45 2023 024 [facility] (Lab), [address], [place], [address], 18:42:54 lh + FSH, serum 2021 022 [email or web address], [address], [place], [address], 2 15:16:07 estradiol, serum 2021 022 [email or web address], [address], [place], [address], 2 15:16:07 Referral None recorded. Procedures colonoscopy screening (PROC) [address] [facility], [address], [address], [place], [address], 4 16:41:26 Surgeries None recorded. Imaging MAMMO, screening, digital, bilateral 2023 024 [facility], [address], [place], [address], 4 04:02:23 MAMMO, screening, bilateral [address], [address], [place], [address], 4 16:16:03 Medication Orders Prometrium 100 mg capsule 2020 021 [id number], [address] [facility], [place], [place], [id number], 3 09:38:16 Patient TargetsNo targets recorded. Patient InstructionsNo instructions recorded. Reason for Referral None Reported. 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 FINAL DIAGN OSIS: Negat gamaliel for [...] as clini grabiel chen nted. Not Available [facility] [address] [place], [address], 05/03/2022 14:46:33 04/29/20 23 04/29/2023 IMAGE GUIDE D PAP AND HPV REGAR DLESS image guided Pap, HPV regardless of Pap result SEE RESULT S BELOW CASE REPOR T: Cytol ogy Gynec ologi dionna Repor t Case: [id number] Autho nba odonnell Provi castillo: Mika Berry Colle cted: 04/29 1413 [employer]OPLESOFT ADMINISTRATOR Order ing Locat ion: [place] Patho logy [...] as clini grabiel chen nted. Not Available [facility] (Lab) [address] [facility], [place], [address], 05/04/2023 16:57:58 05/30/20 24 05/30/2024 IMAGE GUIDE D PAP AND HPV REGAR DLESS image guided Pap, HPV regardless of Pap result SEE RESULT S BELOW CASE REPOR T: Cytol ogy Gynec ologi dionna Repor t Case: [id number] Autho rizin g Provi castillo: Dermo dy, Danyelle , ANP, POUCH MAKER Colle cted: 05/30 1646 Order ing Locat [...] as clini grabiel chen nted. Not Available [facility] (Lab) [address] [facility], [place], [address], 06/11/2024 18:42:54 04/01/20 20 03/31/2020 MAMMO , scree rui, bilat eral No observ ation record ed. [facility] [address], [place], [address], 04/01/2020 21:32:53 05/07/20 21 05/07/2021 MAMMO , scree rui, bilat eral No observ ation record ed. [address] [facility] [address], [place], [address], 05/15/2021 13:49:35 05/14/20 22 05/14/2022 MAMMO , scree rui, bilat eral No observ ation record ed. [address] [facility] [address], [place], [address], 04/29/2023 11:30:01 08/13/19 25 08/13/2024 imagi ng/di agnos tic resul t No observ ation record ed. [facility] [address], [place], [address], 08/13/2024 14:33:30 Result Notes None recorded. Problems Name Problem SNOMED Code Status Onset Date Resolution Date Notes Provider Name and Address Organization Details Recorded Time Female genital organ symptoms 899137617 Completed 201403/30/2021 Pelvic Pain;Prac apurva ID: 0001 Noelle reeder [facility] 14:58:51 Menstrua tion finding Completed 201403/30/2021 Menorrhag ia Excessive Menstruat ion;Pract ice ID: 0001 Noelle reeder [facility] 14:59:08 Left lower quadrant pain 048663656 Completed 201403/30/2021 Abdominal pain, left lower quadrant; Practice ID: 0001 Noelle reeder [facility] 14:59:02 Uterine leiomyom a 95922005 Completed 201403/30/2021 Leiomyoma of uterus, unspecifi ed;Practi ce ID: 0001 Noelle reeder [facility] 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 14:59:22 Pelvic and perineal pain 307278382 Completed 201403/30/2021 Pelvic and perineal pain;Prac apurva ID: 0001 Noelle reeder [facility] 14:59:10 Finding of regulari ty of menstrua l cycle Completed 201703/30/2021 Irregular menstruat ion, unspecifi ed;Practi ce ID: 0001 Noelle reeder [facility] 14:58:58 Adult health examinat ion Completed 201303/30/2021 Routine general medical examinati on at a health care facility; Practice ID: 0001 Noelle reeder [facility] 14:58:44 Speciali zed medical examinat ion Completed 201303/30/2021 Routine gynecolog ical examinati on;Practi ce ID: 0001 Noelle reeder [facility] 14:59:24 Screenin g for malignan t neoplasm of cervix Completed 201303/30/2021 Pap Smear;Pra ctice ID: 0001 Noelle reeder [facility] 14:59:14 Screenin g for malignan t neoplasm of rectum Completed 201303/30/2021 Screening for malignant neoplasms of the rectum;Pr actice ID: 0001 Noelle reeder [facility] 14:59:[address] Concept Completed 201703/30/2021 Encntr for general adult medical exam w/o abnormal findings; Practice ID: 0001 Noelle reeder [facility] 14:59:21 Imaging result abnormal 161733685 Completed 201703/30/2021 Abnormal findings on diagnosti c imaging of body structure s;Practic e ID: 0001 Noelle Taylor [facility] 14:59:01 Finding of pattern of menstrua l cycle 626490874 Completed 201703/30/2021 Excessive and frequent menstruat ion with irregular cycle;Pra ctice ID: 0001 Noelle Taylor [facility] 14:58:55 Finding of pattern of menstrua l cycle Completed 201903/30/2021 Other specified irregular menstruat ion;Pract ice ID: 0001 Noelle Taylor [facility] 14:58:53 Pregnanc y test negative 046387459 Completed 201903/30/2021 Encounter for test, result negative; Practice ID: 0001 Noelle reeder [facility] 14:59:11 Uses combined oral contrace ption 050055762 Completed 201903/30/2021 Encounter for initial prescript ion of contracep tive pills;Pra ctice ID: 0001 Noelle Taylor [facility] 14:58:50 Mammogra phy abnormal 014138895 Completed 201303/30/2021 Unspecifi ed abnormal mammogram ;Recorded Elsewhere : No Locati on: [facility] So urce: EHR Chron ic: N Practic e ID: 0001 Bill able Time: 11:51:29 AM Noelle reeder [facility] 14:59:04 Body mass index 25-29 - overweig ht 885201262 Completed 201403/30/2021 Body mass index (BMI) 27.0-27.9 , adult;Rec orded Elsewhere : No Locati on: [facility] So urce: EHR Chron ic: N Practic e ID: 0001 Bill able Time: 08:30:00 AM Noelle Taylor [facility] 14:58:47 Radiolog ic finding 357801809 Completed 201803/30/2021 Oth abn and inconclus gamaliel findings on dx imaging of breast;Re corded Elsewhere : No Locati on: [facility] So urce: EHR Chron ic: N Practic e ID: 0001 Bill able Time: 08:20:08 AM Noelle reeder [facility] 14:58:48 Atypical glandula r cells on cervical Papanico laou smear 246907362 Completed 201103/30/2021 Abnormal glandular Papanicol aou smear of cervix;Re corded Elsewhere : No Locati on: [facility] So urce: EHR Chron ic: N Practic e ID: 0001 Bill able Time: 02:00:00 PM Noelle Taylor [facility] 14:58:45 Right lower quadrant pain 795949871 Completed 201203/30/2021 Abdominal pain, right lower quadrant; Recorded Elsewhere : No Locati on: [facility] So urce: EHR Chron ic: N Practic e ID: 0001 Bill able Time: 05:00:00 PM Noelle Taylor [facility] 14:59:13 Problem Notes None recorded. Procedures Surgical History Date Name Laterality Status Provider Name and Address Organization Details Recorded Time 04/29/20 23 Date of Last Pap Smear completed Zenia Long [facility] 05/30/2024 15:57:22 05/14/20 22 Date of Last Mammogram completed Chelsi Fournier [facility] 04/29/2023 09:38:57 07/04/19 22 Date of Last Colonoscopy completed Chelsi Fournier [facility] 04/29/2023 09:39:11 04/09/20 20 endometrial biopsy completed Noelle Taylor [facility] 04/26/2022 17:34:53 04/09/20 20 LAPAROSCOPIC TUBAL LIGATION AND ABLATION (SURG) completed Ashleigh Leyva [facility] 12/16/2020 13:00:25 Imaging Results Imaging Date Name Status LastModified by Organiz ation Details LastModified Time 03/31/2020 MAMMO, screening, bilateral completed [facility] [address], [place], [address], 04/01/2020 21:32:53 05/07/2021 MAMMO, screening, bilateral completed [address] [facility] [address], [place], [address], 05/15/2021 13:49:35 05/14/2022 MAMMO, screening, bilateral completed [address] [facility] [address], [place], [address], 04/29/2023 11:30:01 08/13/2024 imaging/diagno stic result active [facility] [address], [place], [address], 08/13/2024 14:33:30 Procedure Notes None recorded. Medical Equipment None Reported. Allergies Allergen ID Allergen Name Allergen Category Reaction Reaction Severity Criticality Documentation Date Start Date Code Code System Note Provider Name and Address Organization Details Recorded Time 1856 Substance with sulfonami de structure and antibacte rial mechanism of action (substanc e) medicatio n Not available Not available Not available 02/28/2020 21905 8003 SNOMED Mari reeder [facility] 0 16:01:05 Medications Name Sig [...] Prescrib ed Elsewher e: Yes Loca tion: [facility] odify By: keaton webb DateTime : 06/21/20 [...] Prescrib ed Elsewher e: Yes Loca tion: [facility] odify By: fanta weller DateTime : 05/09/20 [...] Prescrib ed Elsewher e: No Locat ion: [facility] odify By: garima moore DateTime : 09/13/19 08:15:00 AM Not Available Not Available Not Available escitalop charito 5 mg/5 mL oral solution take 10 millilit er by oral route every day 03/30 completed Prescrib ed Elsewher e: Yes Loca tion: [facility] odify By: keaton webb DateTime : 07/12/19 [...] Mariano e: No Locat ion: Joe [facility]ral[facility] Diane odace By: keaton webb DateTime [...] Updated DateTime 03/31/2021 168.28 cm 24.3 kg/m2 16963.04 g 119 mm[Hg] 73 mm[Hg] [facility] 1 09:44:24 Date Recorded Body height Body mass index (BMI) Body weight Systolic blood pressure Diastolic blood pressure Provider Name and Address Organization Details Last Updated DateTime 04/27/2022 168.91 cm 27 kg/m2 10952.7 g 120 mm[Hg] 76 mm[Hg] [facility] 2 16:29:28 Date Recorded Body height Body mass index (BMI) Body weight Systolic blood pressure Diastolic blood pressure Provider Name and Address Organization Details Last Updated DateTime 04/29/2023 168.91 cm 26.9 kg/m2 79276.11 g 133 mm[Hg] 77 mm[Hg] Chelsi Fournier [facility] 3 09:37:39 Date Recorded Body height Body mass index (BMI) Body weight Systolic blood pressure Diastolic blood pressure Provider Name and Address Organization Details Last Updated DateTime 04/15/2020 170.18 cm 25.7 kg/m2 15842.15 g 108 mm[Hg] 75 mm[Hg] Rosalinda Zepeda [facility] 0 09:31:12 Date Recorded Body height Body mass index (BMI) Body weight Systolic blood pressure Diastolic blood pressure Provider Name and Address Organization Details Last Updated DateTime 05/30/2024 168.91 cm 22.1 kg/m2 73241.34 g 109 mm[Hg] 70 mm[Hg] Zenia Long [facility] 4 16:10:43 Social History Question Answer Notes LastModified by Organizat ion Details LastModified Time Tobacco Smoking Status Never Smoker Christina Sommer varinder, [facility] 04/29/2023 09:27:27 Do You Have [...] Or The Highest Degree You Have Received? 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 [id number] Information not available 03/31/2021 Do You Use [...] 16:06:25 Father Malignant neoplasm of urinary bladder [email or web address] Not available 2023 16:04:47 Paternal Uncle Hypertensive disorder [email or web address] Not available 2019 16:06:25 Paternal Uncle Aneurysm of heart [email or web address] Not available 2023 16:04:47 Paternal Grandmother Heart disease jgumber Not available 2019 16:06:47 Paternal Grandfather Heart disease jgumber Not available 2019 16:06:47 Maternal Grandmother Family history of breast cancer [email or web address] Not available 2023 16:04:47 Maternal Aunt Family history of aneurysm of blood vessel of brain [email or web address] Not available 2023 16:04:47 Maternal Aunt Family history of breast cancer [email or web address] Not available 2023 16:04:47 Maternal Grandfather Family history of aneurysm of blood vessel of brain [email or web address] Not available 2023 16:04:47 Mother Family history of breast cancer [email or web address] Not available 2023 16:04:47 Medical History Condition [...] SNOMED-CT Code Diagnosis ICD10 Code Diagnosis Note [id number] Leticia Barrera , [facility] [address] [address] 03/03/2020 09:18:18 03/03/2020 10:11:03 Gynecologic examination 63973739 Z01.419 Suggested Calcium with Vitamin D 1200-1500m g daily. Patient advised to get an annual flu shot in the fall and she could obtain at [facility] or [facility]. Also to obtain TDap vaccinatio n [...] to this email. Abnormal u terine bleeding [id number] 9100 N93.9 R10.2 Patient has has hx [...] [place]. [id number] Antonia Taylor [facility] [address] [address] 03/05/2020 09:36:44 03/05/2020 10:59:53 Abnormal uterine bleeding 4307633202 9100 N93.9 [id number] Tony Patel MD [facility] [address] [address] 03/17/2020 16:28:43 03/17/2020 18:12:36 Menorrhagia 871870194 N92.0 Uterine leiomyoma 656079 05 D25.9 This patient is a 49-year-ol [...] will go ahead and schedule the procedure. [id number] Tony Patel MD [facility] [address] [address] 04/04/2020 17:21:05 04/05/2020 12:13:07 Abnormal uterine bleeding 1083609023 9100 N93.9 Menorrhagia 677980560 N9 2.0 this patient is a 50-year-ol d female presents for preoperati ve care. She has menorrhagi a and abnormal uterine bleeding. We have agreed to perform laparoscop ic bilateral tubal ligation and endometria l ablation with hysterosco py. She understand s the risks, benefits, and alternativ es. She has completed the informed consent process and is ready to proceed [id number] Tony Patel MD [facility] [address] [address] 04/10/2020 09:04:28 04/10/2020 09:06:16 [id number] Tony Patel MD [facility] [address] [address] 04/15/2020 09:07:48 04/15/2020 09:56:50 Postoperative care 125032423 Z48.89 This patient is a 50-year-ol d [...] and intact. She has no complaints . [id number] [facility]rera , [facility] [address] [address] 03/31/2021 09:16:32 03/31/2021 10:15:18 Gynecologic examination 29004678 Z01.419 Suggested Calcium with Vitamin D 1200-1500m g daily. Patient advised to get an annual flu shot in the fall and she could obtain at [facility] or [facility] care clinic. Also to obtain TDap vaccinatio [...] neoplasm of breast in first degree relative 763717488 Z80.3 Pts mother had Estrogen responsive tumor & was placed on TamoxifenW e discussed genetic testing today & previously ; but opts to defer for now.Henrryin g the the very recent loss of her spouse (1wk ago) from cancer. Night sweats 37095000 R6 1 Trial for night sweats.On SSRI [...] will send update & we can refill. [id number] Leticia Barrera , [facility] [address] [address] 04/27/2022 15:56:08 04/27/2022 16:51:58 Gynecologic examination 35498155 Z01.419 Suggested Calcium with Vitamin D 1200-1500m g daily. Patient advised to get an annual flu shot in the fall and she could obtain at [facility] or [facility] care clinic. Also to obtain TDap vaccinatio [...] Screen naRoutine Labs PCPMammo ordered Menopausal symptom 08679 002 N95.1 [facility] if metal taste in mouth is a menopause sx as it seems to be cyclic.PCP has worked her up for other issues [id number] Leticia Barrera , [facility] [address] [address] 04/29/2023 09:26:16 04/29/2023 13:00:06 Gynecologic examination 45147832 Z01.419 Z11.51 Suggested Calcium with Vitamin D 1200-1500m g daily. Patient advised to get an annual flu shot in the fall and she could obtain at [facility] or [facility] care clinic. Also to obtain TDap vaccinatio [...] naRoutine Labs PCPMammo ordered Screening mammography 24 807679 Z12.31 Menopausal symptom 68791 002 N95.1 Having some vasomotor sx's more [...] migraine w/ visual changes, breast cancer dx, DE/stroke, DVT/PE, Endometria l cancer. Please contact office with any new or worsening side effects or adverse reactions. Or if a medical emergency please go to nearest ED/[facility] for further evaluation . [id number] DANYELLE GILLETTE NP [facility] [address] [address] 05/30/2024 16:03:46 05/30/2024 16:44:50 Gynecologic examination 11493449 Z01.419 Annual gynecologi dionna exam performed. Patient [...] STI testing - declined Screening colonoscopy 44 3003735 Z12.11 GI referral Screening mammography 24 176902 Z12.31 Family his tory of breast cancer 857769945 Z80.3 We discussed genetic screening with Asp[facility] [...] ID Guarantor Name 04/15/2020 1 [place] [id number] Gallito Wagnercaroline [id number] Mari Wagnerehteto 03/31/2021 1 [employer] (POS) [id number] Mari Antoni Koehne [id number] [address] Koehne 04/27/2022 1 [employer] (POS) [id number] Mari E Koehne [id number] Mari [address] Koehne 04/29/2023 1 [employer] (POS) [id number] Mari E Koehne [id number] Mari [address] Koehne 05/30/2024 2 () Mari Wagnerehne [id number] Mari [address] Koehne 05/30/2024 1 [employer] (POS) [id number] Mari Crorales Koehne [id number] Mari Lowne Notes Date Note Type Note [...] complaints. Tony Patel MD [address], [place], [address], [facility] 04/15/2020 09:52:38 03/31/2021 text/html [...] to date on colonoscopy screening Leticia Barrera [facility] [address], [place], [address], [facility] 03/31/2021 10:12:16 04/27/2022 text/html Annual GYNReport [...] to date on colonoscopy screening [facility] [address], [place], [address], [facility] 04/27/2022 16:45:33 04/29/2023 text/html Annual Dispute Resolution Specialist Post-MenopausalRep orted bypatient.Menopaus al Symptoms:no menopausal symptoms; [...] with PCP) ANDREINA Garcia- [address], [place], [address], [facility] 04/29/2023 11:34:07 05/30/2024 text/html Annual Dispute Resolution Specialist Post-MenopausalRep orted bypatient.Menopaus al Symptoms:normal vaginal lubrication;hot [...] neg. DANYELLE GILLETTE NP [address], [place], [address], [facility] 05/30/2024 16:43:25 OBGyn Episode Ob Episode Information Episode Created Date Number of Fetuses Patient Bloodtype Patient rh Status Prepregnancy Weight lbs Domestic Partner Domestic Partner Phone Father Name Air Vice Marshal Status 03/03/20 20 1 CLOSED Fetus Data [...] Domestic Partner Domestic Partner Phone Father Name Air Vice Marshal Status 03/03/20 20 1 CLOSED Fetus Data [...]
--- OUTSIDE RECORDS SUMMARY | 2024-10-08 01:07 | XMS_ITS | Clinical Summary ---
Author Organization [facility] Address [address] [place] [address] Care Team Providers Care Aligner Barrel And Receiver Name Role Phone Rhina Gabriel MD Primary Care Provider [phone] Social History Tobacco Use Types Packs/Day Years [...] 2020 COVID-19 Vaccine (2023-2 5 season) 2024 Meningococcal B Vaccine Aged Out No [...] patient's age to complete this topic Insurance Care Teams Aligner Barrel And Receiver Relationship Specialty Start Date End Date Rhina Gabriel MD [address] [place] [id number] PCP - General INTERNAL MEDICINE 01/16/19
[2024-10-08 07:12] VITALS: BP 116/78; PULSE 89; RESP 16; TEMP 36.2; O2SAT 100; BMI 20.2
[2024-10-08] MEDS: LACTATED RINGERS 1,000 ML 150 ML IV CONT (07:23)
--- NOTE | 2024-10-08 07:39 | WPDANESEPPF ---
Anes - Initial Pre Proc Eval Procedure: Operation Date: 10/08/24 08:30 Proposed Procedures p Screening Colonoscopy - Davion Arias MD Date/Time: 10/08/24 07:39 Surgeon: Davion Arias MD Pre Op Diagnosis: screening colon Patient Data Age: 54 Gender: F Height: 1.73 m Weight: 60.6 kg Last Vital Signs Temp 97.1 F L 10/08/24 07:12 Pulse 89 10/08/24 07:12 Resp 16 10/08/24 07:12 BP 116/78 10/08/24 07:12 Pulse Ox 100 10/08/24 07:12 O2 Del Method Room Air 10/08/24 07:12 Allergies Allergy/AdvReac Type Severity Reaction Status Date / Time Sulfa (Sulfonamide Allergy Mild Rash Verified 10/08/24 07:10 Antibiotics) Home Medications ?Medication ?Instructions ?Recorded ?Confirmed ?Type fluticasone propionate 50 1 - 2 spray intranasal BID 10/11/22 10/08/24 History mcg/actuation nasal spray,suspension (Flonase Allergy Relief) buspirone 15 mg tablet 15 mg PO .prn 08/13/24 10/08/24 History dextromethorphan IR 45 1 tablet PO DAILY 08/13/24 10/08/24 History mg-bupropion ER 105 mg biphasic tablet (Auvelity) cetirizine 10 mg tablet (24Hour 10 mg PO DAILY 08/15/24 10/08/24 History Allergy) cholecalciferol (vitamin D3) 50 50 mcg PO DAILY 08/15/24 10/08/24 History mcg (2,000 unit) capsule omega 3 350 mg-dha 235 mg-epa 90 1 cap PO DAILY 08/15/24 10/08/24 History mg-fish oil 597 mg capsule,delay rel ([place]-3) Patient hx anesthesia problems: none Family hx anesthesia problems: none Results Review: All pre-operative results and documents have been reviewed as part of the pre-operative evaluation. FOR[facility]LY [facility], [facility] Past Medical History Medical History Kidney stone Anxiety Fibromyalgia Family History Family History Father Bladder cancer Heart disease Mother Breast cancer Depression Sibling Alcoholism Depression Other Depression Grandparent Alcoholism Breast cancer Depression Social History Social History Smoking status: Never smoker Second hand tobacco smoke exposure: No Alcohol intake: current Drinks per week: 3 Substance use: current Substance use type: marijuana Other substance usage details: gummies Last use: 2023 Do You Feel Safe in your Home?: Yes Lack of Transportation: No Lack of Food: Never True Current Housing: I Have Housing Concerned About Future Housing: No Difficulty Paying Gas/Electric Bills: No Difficulty Paying for Meds: No Currently Unemployed: No Education: Master's Degree or Higher Difficulty w/ Childcare or Family Care: No Living arrangements: with family Spiritual care concerns: No Anes - Eval Final PreProcedure Day of Procedure 10/08/24 07:39 Patient weight: normal Heart: regular rate and rhythm Lungs: clear to auscultation Airway: Mallampati scale class II Neurological: alert and oriented Last oral intake: >/= 8 hours ASA classification: II Emergent: no Anesthetic plan: proceed Anesthesia type and monitoring: general GIVS and standard monitoring Results Review: All pre-operative results and documents have been reviewed as part of the pre-operative evaluation. Informed Consent: The patient's anesthetic plan and its attendant risks and benefits were discussed with the patient/family/POA. Questions were solicited and answers provided to the satisfaction of the patient/family/POA.
--- NOTE | 2024-10-08 07:54 | PM.HPGS ---
History of Present Illness History of Present Illness Consent: Risks, benefits, and alternatives have been discussed and questions answered. Patient agrees to proceed with procedure. Chief complaint: screening colon Narrative: Mari Toussaint is a 54 year old female here for first screening colonoscopy Review of Systems Review of Systems: All systems reviewed & are unremarkable except as noted in HPI and below PMFSH Past Medical History Medical History (Updated 10/08/24 @ 07:55 by Davion Arias MD) Colon cancer screening Kidney stone Anxiety Fibromyalgia Family History Family History Father Bladder cancer Heart disease Mother Breast cancer Depression Sibling Alcoholism Depression Other Depression Grandparent Alcoholism Breast cancer Depression Social History Social History Smoking status: Never smoker Second hand tobacco smoke exposure: No Alcohol intake: current Drinks per week: 3 Substance use: current Substance use type: marijuana Other substance usage details: gummies Last use: 2023 Do You Feel Safe in your Home?: Yes Lack of Transportation: No Lack of Food: Never True Current Housing: I Have Housing Concerned About Future Housing: No Difficulty Paying Gas/Electric Bills: No Difficulty Paying for Meds: No Currently Unemployed: No Education: Master's Degree or Higher Difficulty w/ Childcare or Family Care: No Living arrangements: with family Spiritual care concerns: No Meds Home Medications and Allergies Home Medications ?Medication ?Instructions ?Recorded ?Confirmed ?Type fluticasone propionate 50 1 - 2 spray intranasal BID 10/11/22 10/08/24 History mcg/actuation nasal spray,suspension (Flonase Allergy Relief) buspirone 15 mg tablet 15 mg PO .prn 08/13/24 10/08/24 History dextromethorphan IR 45 1 tablet PO DAILY 08/13/24 10/08/24 History mg-bupropion ER 105 mg biphasic tablet (Auvelity) cetirizine 10 mg tablet (24Hour 10 mg PO DAILY 08/15/24 10/08/24 History Allergy) cholecalciferol (vitamin D3) 50 50 mcg PO DAILY 08/15/24 10/08/24 History mcg (2,000 unit) capsule omega 3 350 mg-dha 235 mg-epa 90 1 cap PO DAILY 08/15/24 10/08/24 History mg-fish oil 597 mg capsule,delay rel ([place]-3) Allergies Allergy/AdvReac Type Severity Reaction Status Date / Time Sulfa (Sulfonamide Allergy Mild Rash Verified 10/08/24 07:10 Antibiotics) Vital Signs Vital Signs - 24 hr 10/08/24 07:12 Temperature 97.1 F L Pulse Rate 89 Respiratory Rate 16 Blood Pressure 116/78 Pulse Oximetry 100 Oxygen Delivery Room Air Exam Const: General: comfortable and no acute distress HENMT: Face/Nose/Sinus: Normal nares present Eyes: General: appearance normal, both eyes and all related structures Neck: Neck: no JVD Resp: Auscultation: clear to auscultation bilaterally Cardio: Rate: regular rate Rhythm: regular rhythm GI: Inspection: non-distended GI Palp: Yes Soft to palpation Skin: General skin exam: normal color Neuro: General: gait normal Speech: normal speech Extrem: General: normal to inspection Psych: Mental Status: mental status grossly normal Assessment and Plan Assessment and plan (1) Colon cancer screening: Code(s): Z12.11 - Encounter for screening for malignant neoplasm of colon Status: Acute Assessment and Plan: colonoscopy
[2024-10-08 08:14] VITALS: BP 97/59; PULSE 68; RESP 10; O2SAT 100
[2024-10-08 08:24] VITALS: BP 105/62; PULSE 70; RESP 16; O2SAT 100
[2024-10-08 08:34] VITALS: BP 113/73; PULSE 68; RESP 20; O2SAT 98
== END 2024-10-08 08:45 | disposition home or self-care (01) ==
PROVIDERS: Referring Provider Student in an Organized Health Care Education/Training Program; Visit Provider Internal Medicine Gastroenterology
PROC: 0DJD8ZZ Inspection of Lower Intestinal Tract, Via Natural or Artificial Opening Endoscopic (ICD-10-PCS; CPT 45378; principal; 2024-10-08 08:30)
DX: Z12.11 Encounter for screening for malignant neoplasm of colon (principal); F41.9 Anxiety disorder, unspecified
CPT/HCPCS: 45378; J2003; J2704; J7120

== ENCOUNTER 2024-11-14 13:51 | Outpatient (CLI) | payer OTHER, SELFPAY ==
--- OUTSIDE RECORDS SUMMARY | 2024-11-14 14:10 | XMS_ITS | Data Portability ---
Author Organization [facility], [address] [facility] ([place]) Address [address] [place] [address] Care Team Providers Care Community Health Nurse Staff Name Role Phone LAURIE BYNUM Primary Care [...] rule out cervical radiculopathy. 3. May try ulcd-chm-uchotxd Aleve 220 mg tablets 1-2 tablets up [...] on this date of service including both ktgb-ss-bkox and gih-qeig-ed-face time excluding any separately reportable services. nv [email or web address] Not available 01/14/2024 19:18:30 Plan of Treatment Reminders Order Date Submit Date Provider Last Modified By Organization Details Last Modified Time Details Appointments None recorded. Lab CBC 2023 024 [id number] [facility], [address] [place] [address], [id number], 4 08:50:16 CMP, serum or plasma 2023 024 [id number] [facility], [address] [place] [address], [id number], 4 08:50:16 ESR (erythrocyt e sedimentati on rate), blood 2023 024 [id number] [facility], [address] [place] [address], [address], 4 08:50:16 unlisted lab - CRP ([facility] only) 2023 024 [id number] [facility], [address] [place] [address], [address], 4 08:50:08 CRIS (antinuclea r antibodies) screen, serum 2023 024 [id number] [facility], [address] [place] [address], [address], 4 08:50:09 C3 (complement ), serum or plasma 2023 024 [facility], [address] [place] [address], [address], 4 08:50:09 C4 (complement ), serum or plasma 2023 024 [id number] [facility], [address] [place] [address], [address], 4 08:50:09 DNA double strand Ab, QL, serum 2023 024 [email or web address] [facility], [address] [place] [address], [address], 4 08:50:16 Referral None recorded. Procedures None recorded. Surgeries None recorded. Imaging XR, cervical spine, 6 or more view 2023 024 [id number] [facility], [address] [place] [address], [address], 4 10:22:54 Medication Orders None recorded. Patient TargetsNo targets recorded. Patient InstructionsNo instructions recorded. Reason for Referral None Reported. Results Created Date Observation Date Name Description Value Unit Range Abnormal Flag Note LastModifiedBy Organization Detail LastModifiedTime 01/13/20 24 01/13/2024 XR, cervi dionna spine , 4 or [address] [address] Teleph one Name: Lizeth Toussaint [id number] am Date: 2023 Age: 53Phys ician: Kp gautam MD, [facility] y : 1969Ex aminat ion: XR [...] d. Imaged lung apices are clear. IMPRES ELZIABETH: 1. No dynami c instab ility. 2. 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 Electr onical ly signed in Gao cribe by: SANTI Barrera MD on:01/01 9:30 AM cc: Page [facility] [email or web address] [facility] [address] [place] [address], [id number], 01/15/2024 12:29:57 02/17/20 24 02/01/2024 nerve condu ction study /EMG (PROC ) No observ ation record ed. zenia Not Available 2023 10:19:11 02/24/20 24 02/13/2024 MRI, cervi dionna spine , w/wo contr ast No observ ation record ed. [address], [place], [address], 02/24/2024 08:02:56 Result Notes None recorded. Problems Name Problem SNOMED Code Status Onset Date Resolution Date Notes Provider Name and Address Organization Details Recorded Time Anti-nuclea r factor detected 111866449 Active 2023 Melanie Melgar [facility] 4 01:15:54 Left cervical root neuropathy 7700427809545 9106 Active 2023 Catracho Miller MD [address] [place] [address], [address], [facility] 4 09:57:06 Osteoarthri tis 238789991 Active 2023 Catracho Miller MD [address] [place] [address], [address], [facility] 4 09:57:20 Neck pain 43080554 Active 2023 Catracho Miller MD [address] [place] [address], [phone], [facility] 4 09:59:06 Problem Notes None recorded. Procedures Surgical History None recorded. Imaging Results Imaging Date Name Status LastModified by Organiz ation Details LastModified Time 01/13/2024 XR, cervical spine, 4 or 5 [email or web address] [address] [place] [address], [address], 01/15/2024 12:29:57 02/01/2024 nerve conduction study/EMG (PROC) completed [facility] Information not available 02/17/2024 10:19:11 02/13/2024 MRI, cervical spine, w/wo contrast completed [address], [place], [address], 02/24/2024 08:02:56 Procedure Notes None recorded. Medical Equipment None Reported. Allergies Allergen ID Allergen Name Allergen Category Reaction Reaction Severity Criticality Documentation Date Start Date Code Code System Note Provider Name and Address Organization Details Recorded Time 543119 Substance with sulfonami de structure and antibacte rial mechanism of action (substanc e) medicatio n hives Not available Not available 08/01/20232022 23954 8003 SNOMED React ion: Hives ; Not Available [facility] 21:16:19 Medications Name Sig Start Date Stop Date [...] Address Organization Details Last Updated DateTime 4 94709.5 9 g 99 /min 98 % 98 % 122 mm[Hg] 80 mm[Hg] Josee Rivas [facility] 4 09:27:13 Social History Question Answer [...] Do You Have A Medical Power Of Automation Machine Operator? No [email or web address] Information not available 01/06/2024 What Was The Date Of Your Most Recent Tobacco Screening? 01/13/2024 [email or web address] Information not available 01/06/2024 What Is Your Relationship Status? [email or web address] Information not available 01/06/2024 Sex: Unknown Functional Status Question Answer Note LastModified by Organizat ion Details LastModified Time How many times per week do you consume alcohol? 1-2 times per week [email or web address] Information not available 01/06/2024 Do you use any illicit or recreational drugs? No [email or web address] Information not available 01/06/2024 What is your level of alcohol consumption? Occasional [email or web address] Information not available 01/06/2024 Are you currently employed? 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 Occasional [email or web address] Information not available 01/06/2024 Mental Status None recorded. Family History Relationship Description Onset Age of this Age Resolved Age Notes LastModified by Organization Details LastModified Time Father Malignant neoplastic disease [email or web address] Not available 2023 10:32:51 Father Family history of malignant neoplasm [email or web address] Not available 2023 19:27:08 Father Hypertensive disorder [email or web address] Not available 2023 19:27:08 Mother Malignant neoplastic disease Not available 2023 10:32:51 Mother Family history of malignant neoplasm [email or web address] Not available 2023 19:27:08 Unspecified Relation Essential hypertension [email or web address] Not available 09/2023 10:33:10 Maternal Grandfather Family [...] SNOMED-CT Code Diagnosis ICD10 Code Diagnosis Note [id number] Catracho Miller MD [address] [place] [address] Rheumatol [place]gy ([place]) [address] [place] [phone] 01/13/2024 09:13:03 01/13/2024 18:19:29 Left cervical root neuropathy 4391072086 3937554 G54.2 Anti-nucle ar factor detected 824956168 R76.8 Osteoarthritis 851973987 M19.90 Neck pain 52975813 M54.2 Health Concerns Section Related Observation LastModified by Organization Detai ls LastModified Time None Recorded Concern Status LastModified by Organization Details LastModified Time None Recorded Advance Directives Directive N: Payers Insurance Date Sequence Insurance Name Policy Number Policy Villagomez Covered Member ID Villagomez Member ID Guarantor Name 04/20/2024 1 [employer] (POS) [id number] Mari Toussaint [id number] Mari Toussaint 03/19/2024 2 () Mari Toussaint [id number] Mari Toussaint Notes Date Note Type Note [...] of her symptoms for quite some time.anand Cornejofer Ina a 53 year oldfemalepresenting for care. Catracho Miller MD [address] [facility], [place], [address], [facility] 01/16/2024 10:12:51 OBGyn Episode No OBEpisode recorded.
--- OUTSIDE RECORDS SUMMARY | 2024-11-14 14:10 | XMS_ITS | Clinical Summary ---
Author Organization [facility] Address [address] [place] [address] Care Team Providers Care Attorney Law Clerk Name Role Phone Rhina Gabriel MD Primary Care Provider [phone] Social History Tobacco Use Types Packs/Day Years [...] Screening with HPV 2000 Mammogram Screening 2010 Pneumococcal Vaccine: 50+ Ye ars (1 of 1 - PCV) 2020 Zoster Vaccines (1 of 2) 2020 COVID-19 [...] patient's age to complete this topic Insurance [facility] Care Teams Attorney Law Clerk Relationship Specialty Start Date End Date Rhina Gabriel MD [address] [place] [address] PCP - General INTERNAL MEDICINE 01/16/19
--- OUTSIDE RECORDS SUMMARY | 2024-11-14 14:10 | XMS_ITS | Patient Health Record ---
Author Organization [facility] Address [address] [place] [address] Care Team Providers Care Stuffed Casing Tier Name Role Phone Harvey ROMANO, Rhina Primary Care Provider Unavaila Sea Almanzar Unavailable [phone] Migration, Provider Unavailable Unavailable Allergies Allergen (clinical drug ingredient) Drug/Non Drug Allergy documented on EMR Reaction Allergy Type Onset Date Status Substance with sulfonamide structure and antibacterial mechanism of action (substance) Sulfa Antibiotics Unknown Drug Allergy Active Reason For Referral No Information Medications Medication SIG (Take, Route, Frequency, Duration) Notes Start Date End Date Status Auvelity 45-105 MG 1 tablet Oral twice a day for 30 days 05/25/2024 Active Auvelity 45-105 MG 1 tablet in the morn ing Orally twice a day for 30 days Active QUEtiapine Fumarate 25 MG 1 tablet at bedtime Orally Once a day for 90 days As needed 09/28/2024 Active Immunizations Vaccine Route Administration Date Status Comme nts Pfizer Biontech Covid-19 Vac cine 2nd dose Unknown 09/09/2020 Administered Pfizer Biontech Covid-19 Vac cine 2nd dose Unknown 09/30/2020 Administered Pfizer Biontech Covid-19 Vac cine 2nd dose Unknown 05/26/2021 Administered Social History Tobacco Use: Social History Observation Description Date Details (start date - stop date) Never Smoker NA - NA Sex Assigned At : Social History Observation Description Sex Assigned At Female Tobacco Control (Standard) Question Answer Notes Tobacco use: Nonsmoker Problems Problem Type SNOMED Code ICD Code Onset Dates Problem Status W/U Status Risk Notes Problem Severe recurrent major depression without psychotic features (96164207) Major depressive disorder, 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.2) Active confirmed Problem Generalized anxiety disorder (41991377) Generalized anxiety disorder (F41.1) Active confirmed Problem Adjustment disorder, unspecified (F43.20) Active confirmed Vital Signs Heart Rate 77 /min 07/12/2024 Height-cm 172.72 cm 07/12/2024 Blood pressure diastolic 79 mm Hg 07/12/2024 Weight-kg 63.05 kg 07/12/2024 Height 68.00 in 07/12/2024 Blood pressure systolic 115 mm Hg 07/12/2024 Weight 139 lbs 07/12/2024 BMI 21.13 kg/m2 07/12/2024 Encounters Encounter Location Date Provider Diagnosis [facility] [employer] [place] [address] [address] 12/12/2023 Sea Deepali Major depressive disorder, recurrent severe without psychotic features F33.2 ; Generalized anxiety disorder F41.1 and Adjustment disorder, unspecified F43.20 [facility] [employer] [place] [address] [address] 01/09/2024 Sea Deepali [facility] [employer] [place] [address] [address] 02/17/2024 Sea Deepali Major depressive disorder, recurrent severe without psychotic features F33.2 ; Generalized anxiety disorder F41.1 and Adjustment disorder, unspecified F43.20 [facility] [employer] [facility] [address] [address] 05/23/2024 Sea Deepali Major depressive disorder, recurrent severe without psychotic features F33.2 ; Generalized anxiety disorder F41.1 and Adjustment disorder, unspecified F43.20 [facility] [employer] [facility] [address] [address] 07/12/2024 Sea Deepali Major depressive disorder, recurrent severe without psychotic features F33.2 ; Generalized anxiety disorder F41.1 and Adjustment disorder, unspecified F43.20 [facility] [employer] [facility] [address] [address] 09/28/2024 Sea Deepali Major depressive disorder, recurrent severe without psychotic features F33.2 ; Generalized anxiety disorder F41.1 and Adjustment disorder, unspecified F43.20 [place] [id number] [facility] [address] [facility] [address] [place] [address] 11/19/2023 Provider Migration [address] [facility] [address] [place] [address] 11/20/2023 Provider Migration [address] [facility] [address] [place] [address] 04/11/2024 Sea Deepali Generalized anxiety disorder F41.[address] [facility] [address] [place] [address] 01/09/2024 Sea Deepali [address] [facility] [address] [place] [address] 03/07/2024 Seadileep Palumbo [address] [facility] [address] [place] [address] 03/09/2024 Sea Palumbo Assessments Encounter Date Diagnosis (ICD Code) Assessment Notes Treatment Notes Treatment Clinical Notes Section Notes 12/12/2023 Major depressive disorder, recurrent severe without psychotic features (ICD-10 - F33.2) Depression - Assessment: The patient reports recent improvement in mood after accepting her situation and reconnecting with an old friend. However, depression may still be present due to ongoing stressors such as her mother's health and her children's reactions to her new relationship. - Plan: - Continue monitoring the patient's mood. - Encourage maintaining social connections and engaging in enjoyable activities. - Reevaluate the need for medication adjustments or additional therapy sessions as needed. Anxiety - Assessment: The patient reports increased anxiety, potentially related to her mother's health and uncertainty about the future. She has been coping through physical activities but still experiences difficulty sleeping. - Plan: - Encourage continued use of healthy coping mechanisms like physical activity and relaxation techniques. - Consider adjusting medication regimen if anxiety interferes with daily functioning and sleep. Insomnia - Assessment: The patient reports difficulty sleeping despite taking 25 mg of quetiapine at night and has requested an increase to 50 mg. - Plan: - Approve increasing quetiapine dosage to 50 mg at night. - Monitor sleep patterns and adjust medication as needed. Caregiver Stress - Assessment: The patient is experiencing significant stress due to her mother's declining health and caregiving responsibilitie s, potentially contributing to anxiety and insomnia. - Plan: - Encourage seeking support from friends, family, or caregiver support groups. - Discuss the possibility of respite care or additional assistance to alleviate caregiving burden. Medication Management - Assessment: The patient reports receiving Auvility from [facility] and has an adequate supply. She is not currently taking BuSpar. - Plan: - Ensure patient understands the purpose of each medication and importance of adherence. - Reevaluate the need for BuSpar in managing anxiety and discuss any concerns or side effects. Family Dynamics - Assessment: The patient's children are not happy about her new relationship, causing additional stress and tension in the household. - Plan: - Encourage open communication between the patient and her children to address concerns. - Consider family therapy if needed to improve family dynamics and support the patient's mental health. 04/11/2024 Generalized anxiety disorder (ICD-10 - F41.1) 05/23/2024 Major depressive disorder, recurrent severe without [...] follow-up appointment after Joan, in the July. Obsessive-Compu lsive Disorder (OCD) - Assessment: Patient reports improvement with Auvelity, including reduced rumination and distraction. - Plan: - Advise patient to take Auvelity every 12 hours, with a minimum of eight hours between doses. - Continue monitoring the patient's response to the medication. Escitalopram-In duced Metal Taste - Assessment: Patient tried escitalopram [...] - Schedule a follow-up appointment with Dr. Deepali carrasco [place], in the of July. 12/12/2023 Generalized anxiety disorder (ICD-10 - F41.1) Depression - Assessment: The patient reports recent improvement in mood after accepting her situation and reconnecting with an old friend. However, depression may still be present due to ongoing stressors such as her mother's health and her children's reactions to her new relationship. - Plan: - Continue monitoring the patient's mood. - Encourage maintaining social connections and engaging in enjoyable activities. - Reevaluate the need for medication adjustments or additional therapy sessions as needed. Anxiety - Assessment: The patient reports increased anxiety, potentially related to her mother's health and uncertainty about the future. She has been coping through physical activities but still experiences difficulty sleeping. - Plan: - Encourage continued use of healthy coping mechanisms like physical activity and relaxation techniques. - Consider adjusting medication regimen if anxiety interferes with daily functioning and sleep. Insomnia - Assessment: The patient reports difficulty sleeping despite taking 25 mg of quetiapine at night and has requested an increase to 50 mg. - Plan: - Approve increasing quetiapine dosage to 50 mg at night. - Monitor sleep patterns and adjust medication as needed. Caregiver Stress - Assessment: The patient is experiencing significant stress due to her mother's declining health and caregiving responsibilitie s, potentially contributing to anxiety and insomnia. - Plan: - Encourage seeking support from friends, family, or caregiver support groups. - Discuss the possibility of respite care or additional assistance to alleviate caregiving burden. Medication Management - Assessment: The patient reports receiving Auvility from [facility] and has an adequate supply. She is not currently taking BuSpar. - Plan: - Ensure patient understands the purpose of each medication and importance of adherence. - Reevaluate the need for BuSpar in managing anxiety and discuss any concerns or side effects. Family Dynamics - Assessment: The patient's children are not happy about her new relationship, causing additional stress and tension in the household. - Plan: - Encourage open communication between the patient and her children to address concerns. - Consider family therapy if needed to improve family dynamics and support the patient's mental health. 02/17/2024 Major depressive disorder, recurrent severe without psychotic features (ICD-10 - F33.2) Depression and Anxiety - Assessment: Patient reports significant improvement in mood and overall well-being, stating Overall, I'm much better and I don't know what happened, if something just clicked. And I am just in a much better place. The patient is currently not taking any medications for depression or anxiety, having stopped venlafaxine and Auvelity in September. - Plan: Continue to monitor mood and anxiety levels. Encourage the patient to maintain regular follow-up appointments and consider re-initiating medication if symptoms worsen. Nerve Pain Due to Cervical Disc Issues - Assessment: Patient reports occasional use of Boost for nerve pain management, stating I have nerve pain, which I found that I have some issues going on with some discs in my neck. And so sometimes I take it. - Plan: Encourage the patient to continue using Boost as needed for pain relief. Recommend consultation with a specialist if pain worsens or becomes unmanageable. Life Insurance Letter Request - Assessment: Patient requires a letter for [employer] underwriters regarding their previous Spravato treatment for grief. - Plan: Obtain a release of information from the patient and provide the requested letter to the [employer] company. Family Adjustment and Support - Assessment: Patient reports that their children are adjusting to changes in the family, with older son Elliott experiencing more difficulty due to staying with the patient's mother. The patient mentions having a family meeting to discuss potentially moving the mother out of their house. - Plan: Encourage the patient and their children to continue attending therapy sessions with Rivera as a family to address any emotional or adjustment issues. Follow-up Appointment - Plan: Schedule a follow-up appointment for the patient in approximately three months, around May, to reassess their mental health and overall well-being. 07/12/2024 Major depressive disorder, recurrent severe without [...] and the prescription will be sent to [facility] as needed. Follow-up - Plan: - [...] and its impact on future living arrangements. 09/28/2024 Major depressive disorder, recurrent severe without psychotic features (ICD-10 - F33.2) Electronic Prior Authorization was requested for Auvelity 45-105 MG Tablet Extended Release. Provider can order medication once approval received. 09/28/2024 Generalized anxiety disorder (ICD-10 - F41.1) 07/12/2024 Generalized anxiety disorder (ICD-10 - F41.1) [...] and the prescription will be sent to [facility] as needed. Follow-up - Plan: - [...] and its impact on future living arrangements. 02/17/2024 Generalized anxiety disorder (ICD-10 - F41.1) Depression and Anxiety - Assessment: Patient reports significant improvement in mood and overall well-being, stating Overall, I'm much better and I don't know what happened, if something just clicked. And I am just in a much better place. The patient is currently not taking any medications for depression or anxiety, having stopped venlafaxine and Auvelity in September. - Plan: Continue to monitor mood and anxiety levels. Encourage the patient to maintain regular follow-up appointments and consider re-initiating medication if symptoms worsen. Nerve Pain Due to Cervical Disc Issues - Assessment: Patient reports occasional use of Boost for nerve pain management, stating I have nerve pain, which I found that I have some issues going on with some discs in my neck. And so sometimes I take it. - Plan: Encourage the patient to continue using Boost as needed for pain relief. Recommend consultation with a specialist if pain worsens or becomes unmanageable. Life Insurance Letter Request - Assessment: Patient requires a letter for life insurance underwriters regarding their previous Sprav[place] treatment for grief. - Plan: Obtain a release of information from the patient and provide the requested letter to the life insurance company. Family Adjustment and Support - Assessment: Patient reports that their children are adjusting to changes in the family, with older son Elliott experiencing more difficulty due to staying with the patient's mother. The patient mentions having a family meeting to discuss potentially moving the mother out of their house. - Plan: Encourage the patient and their children to continue attending therapy sessions with [facility] as a family to address any emotional or adjustment issues. Follow-up Appointment - Plan: Schedule a follow-up appointment for the patient in approximately three months, around May, to reassess their mental health and overall well-being. 12/12/2023 Adjustment disorder, unspecified (ICD-10 - F43.20) Depression - Assessment: The patient reports recent improvement in mood after accepting her situation and reconnecting with an old friend. However, depression may still be present due to ongoing stressors such as her mother's health and her children's reactions to her new relationship. - Plan: - Continue monitoring the patient's mood. - Encourage maintaining social connections and engaging in enjoyable activities. - Reevaluate the need for medication adjustments or additional therapy sessions as needed. Anxiety - Assessment: The patient reports increased anxiety, potentially related to her mother's health and uncertainty about the future. She has been coping through physical activities but still experiences difficulty sleeping. - Plan: - Encourage continued use of healthy coping mechanisms like physical activity and relaxation techniques. - Consider adjusting medication regimen if anxiety interferes with daily functioning and sleep. Insomnia - Assessment: The patient reports difficulty sleeping despite taking 25 mg of quetiapine at night and has requested an increase to 50 mg. - Plan: - Approve increasing quetiapine dosage to 50 mg at night. - Monitor sleep patterns and adjust medication as needed. Caregiver Stress - Assessment: The patient is experiencing significant stress due to her mother's declining health and caregiving responsibilitie s, potentially contributing to anxiety and insomnia. - Plan: - Encourage seeking support from friends, family, or caregiver support groups. - Discuss the possibility of respite care or additional assistance to alleviate caregiving burden. Medication Management - Assessment: The patient reports receiving Auvility from [facility] and has an adequate supply. She is not currently taking BuSpar. - Plan: - Ensure patient understands the purpose of each medication and importance of adherence. - Reevaluate the need for BuSpar in managing anxiety and discuss any concerns or side effects. Family Dynamics - Assessment: The patient's children are not happy about her new relationship, causing additional stress and tension in the household. - Plan: - Encourage open communication between the patient and her children to address concerns. - Consider family therapy if needed to improve family dynamics and support the patient's mental health. 05/23/2024 Generalized anxiety disorder (ICD-10 - F41.1) Grief and Stress Related to Mother's Passing - Assessment: Patient reports mother recently, causing stress and potential delayed grief reaction. - Plan: - Encourage patient to continue attending counseling sessions with [facility]. - Schedule a follow-up appointment after , in the July. Obsessive-Compu lsive Disorder (OCD) - Assessment: Patient reports improvement with Auvelity, including reduced rumination and distraction. - Plan: - Advise patient to take Auvelity every 12 hours, with a minimum of eight hours between doses. - Continue monitoring the patient's response to the medication. Escitalopram-In duced Metal Taste - Assessment: Patient tried escitalopram [...] - Schedule a follow-up appointment with Dr. Palumbo after , in the July. 05/23/2024 Adjustment disorder, unspecified (ICD-10 - F43.20) Grief and Stress Related to Mother's Passing - Assessment: Patient reports mother recently, causing stress and potential delayed grief reaction. - Plan: - Encourage patient to continue attending counseling sessions with [facility]. - Schedule a follow-up appointment after , in the July. Obsessive-Compu lsive Disorder (OCD) - Assessment: Patient reports improvement with Auvelity, including reduced rumination and distraction. - Plan: - Advise patient to take Auvelity every 12 hours, with a minimum of eight hours between doses. - Continue monitoring the patient's response to the medication. Escitalopram-In duced Metal Taste - Assessment: Patient tried escitalopram [...] - Schedule a follow-up appointment with Dr. Deepali carrasco [place], in the of July. 02/17/2024 Adjustment disorder, unspecified (ICD-10 - F43.20) Depression and Anxiety - Assessment: Patient reports significant improvement in mood and overall well-being, stating Overall, I'm much better and I don't know what happened, if something just clicked. And I am just in a much better place. The patient is currently not taking any medications for depression or anxiety, having stopped venlafaxine and Auvelity in September. - Plan: Continue to monitor mood and anxiety levels. Encourage the patient to maintain regular follow-up appointments and consider re-initiating medication if symptoms worsen. Nerve Pain Due to Cervical Disc Issues - Assessment: Patient reports occasional use of Boost for nerve pain management, stating I have nerve pain, which I found that I have some issues going on with some discs in my neck. And so sometimes I take it. - Plan: Encourage the patient to continue using Boost as needed for pain relief. Recommend consultation with a specialist if pain worsens or becomes unmanageable. Life Insurance Letter Request - Assessment: Patient requires a letter for life insurance underwriters regarding their previous [place]rav[place] treatment for grief. - Plan: Obtain a release of information from the patient and provide the requested letter to the [employer] [facility] ([employer]). Family Adjustment and Support - Assessment: Patient reports that their children are adjusting to changes in the family, with older son Elliott experiencing more difficulty due to staying with the patient's mother. The patient mentions having a family meeting to discuss potentially moving the mother out of their house. - Plan: Encourage the patient and their children to continue attending therapy sessions with [facility] as a family to address any emotional or adjustment issues. Follow-up Appointment - Plan: Schedule a follow-up appointment for the patient in approximately three months, around May, to reassess their mental health and overall well-being. 07/12/2024 Adjustment disorder, unspecified (ICD-10 - F43.20) [...] and the prescription will be sent to [facility] pharmacy as needed. Follow-up - Plan: - [...] and its impact on future living arrangements. 09/28/2024 Adjustment disorder, unspecified (ICD-10 - F43.20) 09/28/2024 Other Problem-Based Assessment and Plan Noble Britt, female, presents with significant stress related to family conflicts, grief, and managing multiple personal responsibilitie s. Adjustment Disorder with Mixed Anxiety and Depressed Mood Assessment: Patient reports experiencing high levels of stress due to ongoing family conflicts, particularly with her brother regarding their mother's estate. She describes feeling overwhelmed by various responsibilitie s, including managing her children's emotional needs, supporting her father through health issues, and dealing with practical matters such as a broken washing machine. The patient expresses difficulty in properly grieving for her mother due to these complications. Her symptoms are consistent with an adjustment disorder, characterized by emotional and behavioral responses to identifiable stressors that exceed normal proportions. Plan: - Continue Auvelity once daily; consider increasing to twice daily as previously prescribed - Refill Auvelity for 2 months through [facility] - Utilize copay card for Auvelity to reduce cost - Continue quetiapine 25 mg PO as needed for restlessness; refill through [facility] - Follow up in 2 months Family Conflict Assessment: Patient reports significant ongoing conflict with her brother regarding their mother's estate. This includes disagreements over property, accusations of hiding information, and involvement of compliance consultant. The situation is causing considerable stress and emotional distress for the patient, impacting her ability to grieve and manage other aspects of her life effectively. Plan: - Encourage continued use of stress-reductio n techniques - Advise maintaining boundaries with brother, including limited contact as needed for mental health - Suggest seeking vp legal affairs if necessary to manage estate-related issues Grief Assessment: Patient is dealing with the recent loss of her mother and reports difficulty in properly grieving due to family conflicts and other stressors. She expresses a desire to plan her mother's burial but faces complications due to her brother's actions and the need to consider her children's emotional well-being. Plan: - Encourage patient to proceed with burial planning in a way that prioritizes her own grief process - Discuss strategies for managing conflicting emotions about excluding family members from burial plans - Recommend grief counseling or support groups if patient feels it would be beneficial Family Dynamics Assessment: Patient reports complex family dynamics, including managing her adult children's emotional needs, supporting her father through health issues, and navigating relationships with her [id number]-rh-vap who has autism. She expresses concern about introducing her new partner, Pradeep, to her children and extended family, particularly in the context of her mother's upcoming burial. Plan: - Discuss strategies for gradually introducing Pradeep to family members, considering timing and emotional readiness of all involved - Encourage open communication with adult children about their needs and concerns - Advise patient to prioritize self-care while managing family responsibilitie s Disclaimer: This note has been transcribed using speech recognition software and serves as a reflection of the patient's visit. While efforts have been made to ensure accuracy, there may be errors, including yard coupler inaccuracies and misspellings of medication names. This document should not be considered a verbatim record, and any discrepancies should be verified with the provider. Plan Of Treatment Next Appt Details Provider Name:Sea Palumbo , 11/16/2024 04:00:00 PM, [facility]5 COUNT INCLUDES [facility] [address], [facility] [address], [place], [address], Insurance Providers Payer Name Payer Address Payer Phone Subscriber Number Group Number Insured Name Patient Relationship to Insured Coverage Start Date Coverage End Date A[employer] Pos [address] [place] [address] [id number] NOBLE BRITT Self - patient is the insured Daylin Alamo y-DNU [address] [address] [place] [address] [id number] NOBLE BRITT Self - patient is the insured Medical (General) History Medical History History ICD Code Problems: Abnormal grief reaction Attention deficit hyperactivity disorder , predominantly inattentive type Chronic post-traumatic stress disorder Generalized anxiety disorder History of SARS-CoV-2 Long-term drug therapy Severe recurrent major depression withou t psychotic features , Surgical History Surgery Date(Month/Year) Other 04/17/2020 Endometrial ablation (55621) 04/17/2020
--- OUTSIDE RECORDS SUMMARY | 2024-11-14 14:10 | XMS_ITS | Clinical Summary ---
Author Organization [facility] Address [address] [place] [address] Care Team Providers Care Biomass Plant Manager Name Role Phone Unavailable Primary Care Provider Unavailabl e Source Comments [facility],non-owned Affiliates and Associated Physician Practices is amultiple site organization consisting of ambulatory clinics and hospital sitesin [place], [place], [place] and [place]. This disclosure is being madepursuant to the Care Everywhere program and may not contain all information available regarding this patient. Last updated 18.[facility] [employer] Medications * Be aware that medications may not be up to date on this document. Alwaysverify current medications with the patient. venlafaxine (EFFEXOR) 37.5 MG tablet Take 37.5 [...] drink = 0.6 oz pur e alcohol) Comments Unknown Sex and Gender Information Value Date Recorded Sex Assigned at Not on file Legal Sex Female 10:00 AM CDT Gender Identity Not on file Sexual Orientation Not on file Last Filed Vital Signs Vital Sign Reading Time Taken Comments Blood Pressure 110/72 06/10/2010 1:47 PM PERIOPERATIVE ASSISTANT Pulse 78 06/10/2010 1:47 PM PERIOPERATIVE ASSISTANT Temperature - - Respiratory Rate - - Oxygen Saturation - - Inhaled Oxygen Concentration - - Weight 68.9 kg (152 lb) 06/10/2010 1:47 PM PERIOPERATIVE ASSISTANT Height 172.7 cm (5' 8 ) 06/10/2010 1:47 PM PERIOPERATIVE ASSISTANT Body Mass Index 23.11 06/10/2010 1:47 PM PERIOPERATIVE ASSISTANT Plan of Treatment Health Maintenance Due Date Last Done Comments COLOGUARD (AGES 45-75) - COL ON CA SCREENING 1970 COLON MONITORING 1970 COLONOSCOPY - COLON CA SCREENING 1970 CT COLONOGRAPHY - COLON CA SCREENING 1970 Colorectal Cancer Screening 1970 FIT - COLON CA SCREENING 1970 FLEX SIG - COLON CA SCREENING 1970 LIPID TESTING 1970 MAMMOGRAM 1970 HIV SCREENING 1985 HEPATITIS C SCREENING [...]
--- OUTSIDE RECORDS SUMMARY | 2024-11-14 14:10 | XMS_ITS | Data Portability ---
Author Organization [facility] [place] Address [address] [place] [address] Care Team Providers Care Branch Coordinator Name Role Phone LAURIE BYNUM Primary Care [...] a year unless there are new symptoms. [email or web address] Not available 05/30/2024 15:56:55 Plan of Treatment Reminders Order Date Submit Date Provider Last Modified By Organization Details Last Modified Time Details Appointments None recorded. Lab pap, IG + HR HPV - HPV regardless but if HPV is positive need subtyping 16,18/45 2023 024 [facility] (Lab), [address], [place], [address], 18:42:54 lh + FSH, serum 2021 022 [facility], [address], [place], [address], 2 15:16:07 estradiol, serum 2021 022 [facility], [address], [place], [address], 2 15:16:07 Referral None recorded. Procedures colonoscopy screening (PROC) [address] [facility], [address], [id number], [place], [address], 4 16:41:26 Surgeries None recorded. Imaging MAMMO, screening, digital, bilateral 2023 024 [facility], [address], [place], [address], 4 04:02:23 MAMMO, screening, bilateral [address], [address], [place], [address], 4 16:16:03 Medication Orders Prometrium 100 mg capsule 2020 021 [id number], [address], [place], [id number], 3 09:38:16 Patient TargetsNo targets recorded. Patient InstructionsNo instructions recorded. Reason for Referral None Reported. Results Created Date Observation Date Name Description Value Unit Range Abnormal Flag Note LastModifiedBy Organization Detail LastModifiedTime 08/21/19 21 08/21/2020 , kailey howard md interpretati on Not Available [facility] [address], [place], [address], 03/05/2020 10:38:28 04/27/20 22 04/27/2022 IMAGE GUIDE D PAP AND HPV REGAR DLESS image guided Pap, HPV regardless of Pap result SEE RESULT S BELOW CASE REPOR T: Cytol ogy Gynec ologi dionna Repor t Case: [id number] Autho nba odonnell Provi castillo: Fabiano butler , Mattie Landin cted: 04/27 1709 DIRECT SUPPORT PROFESSIONAL Order ing Locat ion: [place] [facility] Recei diego: 04/28 0830 First Scree n: Gerardo z, Willi am, CT Rescr een: Idalia [...] as clini grabiel chen nted. Not Available [facility] [address] [place], [address], 05/03/2022 14:46:33 04/29/20 23 04/29/2023 IMAGE GUIDE D PAP AND HPV REGAR DLESS image guided Pap, HPV regardless of Pap result SEE RESULT S BELOW CASE REPOR T: Cytol ogy Gynec ologi dionna Repor t Case: [id number] Autho nba odonnell Provi castillo: Mika Berry Colle cted: 04/29 1413 DIRECT SUPPORT PROFESSIONAL Order ing Locat ion: [place] [facility] Recei diego: 04/30 0321 First Scree n: [place], CT Speci men: Scree rui Pap - Image d, Cervi x STATE MENT OF ADEQU ACY: Satis facto ry for evalu ation Trans forma tion zone compo nent prese nt FINAL DIAGN OSIS: Negat gamaliel for Intra epith elial Lesio n or Francoise sena (NIL) . Elect dayday [...] as clini grabiel chen nted. Not Available [facility] (Lab) [address], [place], [address], 05/04/2023 16:57:58 05/30/20 24 05/30/2024 IMAGE GUIDE D PAP AND HPV REGAR DLESS image guided Pap, HPV regardless of Pap result SEE RESULT S BELOW CASE REPOR T: Cytol ogy Gynec ologi dionna Repor t Case: [id number] Autho rizin g Provi castillo: Dermo dy, Danyelle , ANP, FABRICATION MACHINE OPERATOR Colle cted: 05/30 1646 Order ing Locat [...] as clini grabiel chen nted. Not Available [facility] (Lab) [address], [place], [address], 06/11/2024 18:42:54 04/01/20 20 03/31/2020 MAMMO , scree rui, bilat eral No observ ation record ed. [facility] [address], [place], [address], 04/01/2020 21:32:53 05/07/20 21 05/07/2021 MAMMO , scree rui, bilat eral No observ ation record ed. [address] [facility] [address], [place], [address], 05/15/2021 13:49:35 05/14/20 22 05/14/2022 MAMMO , scree rui, bilat eral No observ ation record ed. [address] [facility] [address], [place], [address], 04/29/2023 11:30:01 08/13/19 25 08/13/2024 imagi ng/di agnos tic resul t No observ ation record ed. [place] [id number], [place], [address], 08/13/2024 14:33:30 Result Notes None recorded. Problems Name Problem SNOMED Code Status Onset Date Resolution Date Notes Provider Name and Address Organization Details Recorded Time Female genital organ symptoms [id number] Completed 201403/30/2021 Pelvic Pain;Prac apurva ID: 0001 Noelle reeder [facility] 14:58:51 Menstrua tion finding Completed 201403/30/2021 Menorrhag ia Excessive Menstruat ion;Pract ice ID: 0001 Noelle reeder [facility] 14:59:08 Left lower quadrant pain 923258358 Completed 201403/30/2021 Abdominal pain, left lower quadrant; Practice ID: 0001 Noelle reeder [facility] 14:59:02 Uterine leiomyom a [id number] Completed 201403/30/2021 Leiomyoma of uterus, unspecifi ed;Practi ce ID: 0001 Noelle reeder [facility] 14:59:[address] Concept Completed 201403/30/2021 Encntr for family preservation caseworker exam (general) (routine) w/o abn findings; Practice ID: 0001 Noelle reeder [facility] 14:59:22 Pelvic and perineal pain 573802350 Completed 201403/30/2021 Pelvic and perineal pain;Prac apurva ID: 0001 Noelle reeder [facility] 14:59:10 Finding of regulari ty of menstrua l cycle Completed 201703/30/2021 Irregular menstruat ion, unspecifi ed;Practi ce ID: 0001 Noelle reeder [facility] 14:58:58 Adult health examinat ion Completed 201303/30/2021 Routine general medical examinati on at a health care facility; Practice ID: 0001 Noelle reeder [facility] 14:58:44 Speciali zed medical examinat ion Completed 201303/30/2021 Routine gynecolog ical examinati on;Practi ce ID: 0001 Noelle reeder [facility] 14:59:24 Screenin g for malignan t neoplasm of cervix Completed 201303/30/2021 Pap Smear;Pra ctice ID: 0001 Noelle reeder [facility] 14:59:14 Screenin g for malignan t neoplasm of rectum Completed 201303/30/2021 Screening for malignant neoplasms of the rectum;Pr actice ID: 0001 Noelle reeder [facility] 14:59:[address] Concept Completed 201703/30/2021 Encntr for general adult medical exam w/o abnormal findings; Practice ID: 0001 Noelle reeder [facility] 14:59:21 Imaging result abnormal 169299869 Completed 201703/30/2021 Abnormal findings on diagnosti c imaging of body structure s;Practic e ID: 0001 Noelle Taylor [facility] 14:59:01 Finding of pattern of menstrua l cycle 044676373 Completed 201703/30/2021 Excessive and frequent menstruat ion with irregular cycle;Pra ctice ID: 0001 Noelle Taylor [facility] 14:58:55 Finding of pattern of menstrua l cycle Completed 201903/30/2021 Other specified irregular menstruat ion;Pract ice ID: 0001 Noelle Taylor [facility] 14:58:53 Pregnanc y test negative 767618259 Completed 201903/30/2021 Encounter for test, result negative; Practice ID: 0001 Noelle reeder [facility] 14:59:11 Uses combined oral contrace ption 026634925 Completed 201903/30/2021 Encounter for initial prescript ion of contracep tive pills;Pra ctice ID: 0001 Noelle Taylor [facility] 14:58:50 Mammogra phy abnormal 053596933 Completed 201303/30/2021 Unspecifi ed abnormal mammogram ;Recorded Elsewhere : No Locati on: [facility] So urce: EHR Chron ic: N Practic e ID: 0001 Bill able Time: 11:51:29 AM Noelle reeder [facility] 14:59:04 Body mass index 25-29 - overweig ht 067967357 Completed 201403/30/2021 Body mass index (BMI) 27.0-27.9 , adult;Rec orded Elsewhere : No Locati on: [facility] So urce: EHR Chron ic: N Practic e ID: 0001 Bill able Time: 08:30:00 AM Noelle Taylor [facility] 14:58:47 Evaluati on finding 701868986 Completed 201803/30/2021 Oth abn and inconclus gamaliel findings on dx imaging of breast;Re corded Elsewhere : No Locati on: [facility] So urce: EHR Chron ic: N Practic e ID: 0001 Bill able Time: 08:20:08 AM Noelle Taylor [facility] 14:58:48 Atypical glandula r cells on cervical Papanico laou smear 060766547 Completed 201103/30/2021 Abnormal glandular Papanicol aou smear of cervix;Re corded Elsewhere : No Locati on: [facility] So urce: EHR Chron ic: N Practic e ID: 0001 Bill able Time: 02:00:00 PM Noelle Taylor [facility] 14:58:45 Right lower quadrant pain 298317600 Completed 201203/30/2021 Abdominal pain, right lower quadrant; Recorded Elsewhere : No Locati on: [facility] So urce: EHR Chron ic: N Practic e ID: 0001 Bill able Time: 05:00:00 PM Noelle Taylor [facility] 14:59:13 Problem Notes None recorded. Procedures Surgical History Date Name Laterality Status Provider Name and Address Organization Details Recorded Time 04/29/20 23 Date of Last Pap Smear completed Zenia Long [facility] 05/30/2024 15:57:22 05/14/20 Date of Last Mammogram completed Chelsi Fournier [facility] 04/29/2023 09:38:57 07/04/19 22 Date of Last Colonoscopy completed Chelsi Fournier [facility] 04/29/2023 09:39:11 04/09/20 20 endometrial biopsy completed Noelle Taylor [facility] 04/26/2022 17:34:53 04/09/20 20 LAPAROSCOPIC TUBAL LIGATION AND ABLATION (SURG) completed Ashleigh Leyva [facility] 12/16/2020 13:00:25 Imaging Results Imaging Date Name Status LastModified by Organiz ation Details LastModified Time 03/31/2020 MAMMO, screening, bilateral completed [facility] [address], [place], [address], 04/01/2020 21:32:53 05/07/2021 MAMMO, screening, bilateral completed [address] [facility] [address], [place], [address], 05/15/2021 13:49:35 05/14/2022 MAMMO, screening, [email or web address] [facility] [address], [place], [address], 04/29/2023 11:30:01 08/13/2024 imaging/diagno stic result active [facility] [address], [place], [address], 08/13/2024 14:33:30 Procedure Notes None recorded. Medical Equipment None Reported. Allergies Allergen ID Allergen Name Allergen Category Reaction Reaction Severity Criticality Documentation Date Start Date Code Code System Note Provider Name and Address Organization Details Recorded Time 1856 Substance with sulfonami de structure and antibacte rial mechanism of action (substanc e) medicatio n Not available Not available Not available 02/28/2020 62990 8005 SNOMED Mari reeder [facility] 0 16:01:05 Medications Name Sig Start [...] Prescrib ed Elsewher e: Yes Loca tion: [facility]ify By: keaton webb DateTime : 06/21/20 03:00:00 PM Not Available Not Available Not [...] Prescrib ed Elsewher e: Yes [facility] By: fanta weller DateTime : 05/09/20 [...] Prescrib ed Elsewher e: No Locat ion: [facility] odify By: garima moore DateTime : 09/13/19 08:15:00 AM Not Available Not Available Not Available escitalop charito 5 mg/5 mL oral solution take 10 millilit er by oral route every day 03/30 completed Prescrib ed Elsewher e: Yes Loca tion: [facility] [employer]ify By: keaton webb DateTime : 07/12/19 [...] kristen Mariano e: No Locat ion: [facility]ify By: keaton webb DateTime : 06/15/20 10:30:00 [...] Updated DateTime 03/31/2021 168.28 cm 24.3 kg/m2 90794.04 g 119 mm[Hg] 73 mm[Hg] [facility] 1 09:44:24 Date Recorded Body height Body mass index (BMI) Body weight Systolic blood pressure Diastolic blood pressure Provider Name and Address Organization Details Last Updated DateTime 04/27/2022 168.91 cm 27 kg/m2 26978.7 g 120 mm[Hg] 76 mm[Hg] [facility] 2 16:29:28 Date Recorded Body height Body mass index (BMI) Body weight Systolic blood pressure Diastolic blood pressure Provider Name and Address Organization Details Last Updated DateTime 04/29/2023 168.91 cm 26.9 kg/m2 11745.11 g 133 mm[Hg] 77 mm[Hg] Chelsi Fournier [facility] 3 09:37:39 Date Recorded Body height Body mass index (BMI) Body weight Systolic blood pressure Diastolic blood pressure Provider Name and Address Organization Details Last Updated DateTime 04/15/2020 170.18 cm 25.7 kg/m2 37309.15 g 108 mm[Hg] 75 mm[Hg] Rosalinda Zepeda [facility] 0 09:31:12 Date Recorded Body height Body mass index (BMI) Body weight Systolic blood pressure Diastolic blood pressure Provider Name and Address Organization Details Last Updated DateTime 05/30/2024 168.91 cm 22.1 kg/m2 69729.34 g 109 mm[Hg] 70 mm[Hg] Zenia Long [facility] 4 16:10:43 Social History Question Answer Notes LastModified by Organizat ion Details LastModified Time Tobacco Smoking Status Never Smoker Christina Sommer varinder, [facility] 04/29/2023 09:27:27 Do You Have An Advance Directive? No Information n ot available 04/27/2022 Are You Blind Or Do You Have Difficulty Seeing? No Information n ot available 03/30/2021 What Is Your Level Of Caffeine Consumption? Moderate Information not available 04/27/2022 How Much Tobacco Do You Chew? None Information not available 03/31/2021 In The 14 Days Before Symptom Onset, Have You Had Close Contact With A Laboratory-confirm ed COVID-19 While That Case Was Ill? No Information n ot available 03/31/2021 In The 14 Days Before [...] Of Diet Are You Following? REGULAR Information n ot available 03/30/2021 What Is The Highest Grade Or Level Of School You Have Completed Or The Highest Degree You Have Received? [id number] Information not available 03/31/2021 Are There Any Guns Present In Your Home? No Information not available 03/31/2021 Do You Use Your Seat Belt Or Car Seat Routinely? Yes Information not available 03/30/2021 Do You Have Smoke And Carbon Monoxide Detectors In Your Home? Yes Information not available 03/30/2021 How Much Tobacco Do You Smoke? No Information not available 03/31/2021 Do You Use Sunscreen Routinely? Yes Information not available 03/30/2021 Have You Used IV Drugs? No Information not available 03/31/2021 Sex: Unknown Functional Status Question Answer Note LastModified by Organizat ion Details LastModified Time Do you use any illicit or recreational drugs? No Information not available 03/30/2021 What is your level of alcohol consumption? Occasional Information not available 04/27/2022 Are you able to walk? 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 Occasional Information not available 03/30/2021 Mental Status Question Answer Note LastModified by Organization D etails LastModified Time Do you feel stressed (tense, restless, nervous, or anxious, or unable to sleep at night)? [id number] Information not available 03/31/2021 Family History Relationship Description Onset Age of this Age Resolved Age Notes LastModified by Organization Details LastModified Time Father Hypertensive disorder [email or web address] Not available 2019 16:06:25 Father Malignant neoplasm of urinary bladder [email or web address] Not available 2023 16:04:47 Paternal Uncle Hypertensive disorder jgumber Not available 2019 16:06:25 Paternal Uncle Aneurysm of heart Not available 2023 16:04:47 Paternal Grandmother Heart disease jgumber Not available 2019 16:06:47 Paternal Grandfather Heart disease [email or web address] Not available 2019 16:06:47 Maternal Grandmother Family history of breast cancer [email or web address] Not available 2023 16:04:47 Maternal Aunt Family history of aneurysm of blood vessel of brain Not available 2023 16:04:47 Maternal Aunt Family history of breast cancer [email or web address] Not available 2023 16:04:47 Maternal Grandfather Family history of aneurysm of blood [id number]||2024-11-14 14:41:00|US_ITS|BURKT|Imaging|[id number]|"US retroperitoneal comp 11/14/2024 14:31 Procedure: Realtime transabdominal ultrasound of the kidneys and bladder. Indication: Hematuria. Left flank pain. Comparison: No prior studies for comparison. Findings: Renal echotexture is normal bilaterally without contour deforming mass or renal calculus. T he right kidney measures 11 cm and left kidney measures 11 cm. There is an echogenic focus in the pro ximal aspect of the left ureter with moderate hydronephrosis. Bladder within normal limits. Impression: 1: Echogenic focus proximally in the left ureter with moderate hydronephrosis, compatible with stone. Consider correlation with CT abdomen. Reviewed, dictated and finalized at location A. Impression: 1: Echogenic focus proximally in the left ureter with moderate hydronephrosis, compatible with stone. Consider correlation with CT abdomen. "
[2024-11-14 14:16] LABS: Hematocrit 36.4 % (35.0-49.0); Hemoglobin 11.7 g/dL (12.0-15.0); Mean Corpuscular HGB Conc 32.1 g/dL (32-36); Mean Corpuscular Hemoglobin 31.4 pg (27.0-31.0); Mean Corpuscular Volume 97.6 fL (78.0-102.0); Platelet Count Result 202 K/mm3 (150-420); Red Blood Count 3.73 M/mm3 (4.20-5.40); Red Cell Distribution Width 12.5 % (11.6-14.4); White Blood Count 8.3 K/mm3 (4.8-10.8)
[2024-11-14 14:18] LABS: Add Urine Microscopic? YES; Appearance Urine Clear (Clear); Bilirubin Urine Negative (Negative); Blood Urine Negative (Negative); Color Urine Yellow (Yellow); Glucose Urine UA Negative (Negative); Ketones Urine Trace (Negative); Leukocyte Esterase Ur Negative (Negative); Nitrate Urine Negative (Negative); Protein Urine 1+ (Negative); Specific Grav Ur 1.025 (1.010-1.020); Urobilinogen Urine 0.2 mg/dL (0.2-1.0); pH Urine 5.5 (5.0-8.0)
[2024-11-14 14:21] LABS: Bacteria Urine Trace /hpf; RBC Urine 0-2 /hpf (0-2); Squamous Epithelial Cell Urine Few /hpf (Few); WBC Urine 0-3 /hpf (0-3)
[2024-11-14 14:37] LABS: Alanine Aminotransferase 15 U/L (6-35); Albumin Level 3.6 g/dL (3.5-5.1); Alkaline Phosphatase 72 U/L (38-126); Anion Gap 5 mmol/L (4-12); Aspartate Amino Transferase 24 U/L (14-36); Bilirubin,Total 0.6 mg/dL (0.2-1.3); Blood Urea Nitrogen 21 mg/dL (7-17); Calcium 8.9 mg/dL (8.4-10.2); Carbon Dioxide 27 mmol/L (22-30); Chloride 105 mmol/L (98-107); Estimated Glomerular Filt Rate 39; Glucose 117 mg/dL (65-110); Osmolality Calculated 288 mOsm/kg (285-295); Potassium 3.5 mmol/L (3.4-5.0); Sodium 137 mmol/L (137-145); Total Protein 6.1 g/dL (6.3-8.2)
== END 2024-11-14 13:52 | disposition home or self-care (01) ==
LOC: CHSLAB 13:57
PROVIDERS: PCP Nurse Practitioner Family; Visit Provider Nurse Practitioner Family
DX: R31.9 Hematuria, unspecified (principal); N13.30 Unspecified hydronephrosis
CPT/HCPCS: 36415; 76770; 80053; 81001; 85027; 87086

== ENCOUNTER 2024-11-16 09:58 | Outpatient (CLI) | payer OTHER, SELFPAY ==
--- OUTSIDE RECORDS SUMMARY | 2024-11-16 10:10 | XMS_ITS | Clinical Summary ---
Author Organization [facility] Address [address] [place] [address] Care Team Providers Care Spoilage Worker Name Role Phone Rhina Gabriel MD Primary Care Provider [phone] Social History Tobacco Use Types Packs/Day Years [...] patient's age to complete this topic Insurance [facility] Care Teams Spoilage Worker Relationship Specialty Start Date End Date Rhina Gabriel MD [address] [place] [address] PCP - General INTERNAL MEDICINE 01/16/19
--- OUTSIDE RECORDS SUMMARY | 2024-11-16 10:10 | XMS_ITS | Data Portability ---
Author Organization [facility], [address] [facility] Neurology ([place]) Address [address] [place] [address] Care Team Providers Care Veterinary Epidemiologist Name Role Phone LAURIE BYNUM Primary Care [...] rule out cervical radiculopathy. 3. May try bcjl-txo-jjwjshq Aleve 220 mg tablets 1-2 tablets up [...] on this date of service including both tqbc-mv-dety and hyw-nzfi-gm-face time excluding any separately reportable services. nv [email or web address] Not available 01/14/2024 19:18:30 Plan of Treatment Reminders Order Date Submit Date Provider Last Modified By Organization Details Last Modified Time Details Appointments None recorded. Lab CBC 2023 024 [email or web address] [facility], [address] [place] [address], [address], 4 08:50:16 CMP, serum or plasma 2023 024 [facility], [address] [place] [address], [address], 4 08:50:16 ESR (erythrocyt e sedimentati on rate), blood 2023 024 [id number] [facility], [address] [place] [address], [address], 4 08:50:16 unlisted lab - CRP ([facility] only) 2023 024 [id number] [facility], [address] [place] [address], [address], 4 08:50:08 CRIS (antinuclea r antibodies) screen, serum 2023 024 [id number] [facility], [address] [place] [address], [address], 4 08:50:09 C3 (complement ), serum or plasma 2023 024 [id number] [facility] - [facility], [address] [place] [address], [address], 4 08:50:09 C4 (complement ), serum or plasma 2023 024 [facility] Only - [facility], [address] [place] [address], [address], 4 08:50:09 DNA double strand Ab, QL, serum 2023 024 [facility], [address] [place] [address], [address], 4 08:50:16 Referral None recorded. Procedures None recorded. Surgeries None recorded. Imaging XR, cervical spine, 6 or more view 2023 024 [email or web address] [facility], [address] [place] [address], [address], 4 10:22:54 Medication Orders None recorded. Patient TargetsNo targets recorded. Patient InstructionsNo instructions recorded. Reason for Referral None Reported. Results Created Date Observation Date Name Description Value Unit Range Abnormal Flag Note LastModifiedBy Organization Detail LastModifiedTime 01/13/20 24 01/13/2024 XR, cervi dionna spine , 4 or [address] [address] Teleph one [phone] Name: Lizeth Toussaint 0450Ex am Date: 2023 Age: 53Phys ician: Kp gautam MD, [facility] y : 1969Ex aminat ion: [...] 9:30 AM cc: Page PAGE 1 of [facility] ES 1 [email or web address] [facility] Only - [facility] [address] [place] [address], [address], 01/15/2024 12:29:57 02/17/20 24 02/01/2024 nerve condu ction study /EMG (PROC ) No observ ation record ed. zenia Not Available 2023 10:19:11 02/24/20 24 02/13/2024 MRI, cervi dionna spine , w/wo contr ast No observ ation record ed. [address], [place], [address], 02/24/2024 08:02:56 Result Notes None recorded. Problems Name Problem SNOMED Code Status Onset Date Resolution Date Notes Provider Name and Address Organization Details Recorded Time Anti-nuclea r factor detected 017739427 Active 2023 Melanie Melgar [facility] 4 01:15:54 Left cervical root neuropathy 3999773874498 9106 Active 2023 Catracho Miller MD [address] [place] [address], [address], [facility] 4 09:57:06 Osteoarthri tis 608381554 Active 2023 Catracho Miller MD [address] [place] [address], [address], [facility] 4 09:57:20 Neck pain 62451704 Active 2023 Catracho Miller MD [address] [place] [address], [address], [facility] 4 09:59:06 Problem Notes None recorded. Procedures Surgical History None recorded. Imaging Results Imaging Date Name Status LastModified by Organiz ation Details LastModified Time 01/13/2024 XR, cervical spine, 4 or 5 [facility] [address] [place] [address], [address], 01/15/2024 12:29:57 02/01/2024 nerve conduction study/EMG (PROC) completed [facility] Information not available 02/17/2024 10:19:11 02/13/2024 MRI, cervical spine, w/wo contrast completed [address], [place], [address], 02/24/2024 08:02:56 Procedure Notes None recorded. Medical Equipment None Reported. Allergies Allergen ID Allergen Name Allergen Category Reaction Reaction Severity Criticality Documentation Date Start Date Code Code System Note Provider Name and Address Organization Details Recorded Time 469499 Substance with sulfonami de structure and antibacte rial mechanism of action (substanc e) medicatio n hives Not available Not available 08/01/20232022 39771 8003 SNOMED React ion: Hives ; Not Available [facility] 21:16:19 Medications Name Sig Start Date [...] Address Organization Details Last Updated DateTime 4 39816.5 9 g 99 /min 98 % 98 % 122 mm[Hg] 80 mm[Hg] Josee Rivas [facility] 4 09:27:13 Social History Question [...] Do You Have A Medical Power Of Drain Cleaner Plumber? 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 Occasional [email or web address] Information not available 01/06/2024 Mental Status None recorded. Family History Relationship Description Onset Age of this Age Resolved Age Notes LastModified by Organization Details LastModified Time Father Malignant neoplastic disease [email or web address] Not available 2023 10:32:51 Father Family history of malignant neoplasm [email or web address] Not available 2023 19:27:08 Father Hypertensive disorder [email or web address] Not available 2023 19:27:08 Mother Malignant neoplastic disease [email or web address] Not available 2023 10:32:51 Mother Family history of malignant neoplasm [email or web address] Not available 2023 19:27:08 Unspecified Relation Essential hypertension [email or web address] Not available 09/2023 10:33:10 Maternal Grandfather Family [...] SNOMED-CT Code Diagnosis ICD10 Code Diagnosis Note [id number] Catracho Miller MD [address] [place] [address] Rheumatol [place]gy ([place]) [address] [place] [phone] 01/13/2024 09:13:03 01/13/2024 18:19:29 Left cervical root neuropathy 4065161221 7693462 G54.2 Anti-nucle ar factor detected 519125992 R76.8 Osteoarthritis 345560174 M19.90 Neck pain 92341675 M54.2 Health Concerns Section Related Observation LastModified by Organization Detai ls LastModified Time None Recorded Concern Status LastModified by Organization Details LastModified Time None Recorded Advance Directives Directive N: Payers Insurance Date Sequence Insurance Name Policy Number Policy Villagomez Covered Member ID Villagomez Member ID Guarantor Name 04/20/2024 1 [employer] (POS) [id number] Mari Toussaint [id number] Mari Toussaint 03/19/2024 2 () Mari Toussaint [id number] Mari Toussaint Notes Date Note Type Note [...] for care. Catracho Miller MD [address] [facility], [place], [address], [facility] 01/16/2024 10:12:51 OBGyn Episode No OBEpisode recorded.
--- OUTSIDE RECORDS SUMMARY | 2024-11-16 10:10 | XMS_ITS | Data Portability ---
Author Organization [facility] [place] Address [address] [place] [address] Care Team Providers Care Point Of Care Specialist Name Role Phone LAURIE BYNUM Primary Care [...] unless there are new symptoms. Not available 05/30/2024 15:56:55 Plan of Treatment Reminders Order Date Submit Date Provider Last Modified By Organization Details Last Modified Time Details Appointments None recorded. Lab pap, IG + HR HPV - HPV regardless but if HPV is positive need subtyping 16,18/45 2023 024 [facility] (Lab), [address] [facility], [place], [address], 18:42:54 lh + FSH, serum 2021 022 [email or web address], [address], [place], [address], 2 15:16:07 estradiol, serum 2021 022 [email or web address], [address], [place], [address], 2 15:16:07 Referral None recorded. Procedures colonoscopy screening (PROC) [address] Gastroenter[facility]gy, [address], [address], [place], [address], 4 16:41:26 Surgeries None recorded. Imaging MAMMO, screening, digital, bilateral 2023 024 [facility], [address], [place], [address], 4 04:02:23 MAMMO, screening, bilateral [address], [address], [place], [address], 4 16:16:03 Medication Orders Prom[facility]rium 100 mg capsule 2020 [id number], [address], [place], [id number], 3 09:38:16 Patient TargetsNo targets recorded. Patient InstructionsNo instructions recorded. Reason for Referral None Reported. Results Created Date Observation Date Name Description Value Unit Range Abnormal Flag Note LastModifiedBy Organization Detail LastModifiedTime 08/21/19 21 08/21/2020 , kailey howard md interpretati on Not Available [facility] [address], [place], [address], 03/05/2020 10:38:28 04/27/20 22 04/27/2022 IMAGE GUIDE D PAP AND HPV REGAR DLESS image guided Pap, HPV regardless of Pap result SEE RESULT S BELOW CASE REPOR T: Cytol ogy Gynec ologi dionna Repor t Case: [id number] Autho nba odonnell Provi castillo: Fabiano butler , Mattie Landin cted: 04/27 1709 SAWSMITH Order ing Locat ion: [place] Path[facility] log[facility] [...] chen nted. Not Available [facility] [address] [place], [address], 05/03/2022 14:46:33 04/29/20 23 04/29/2023 IMAGE GUIDE D PAP AND HPV REGAR DLESS image guided Pap, HPV regardless of Pap result SEE RESULT S BELOW CASE REPOR T: Cytol ogy Gynec ologi dionna Repor t Case: [id number] Autho nba odonnell Provi castillo: Mika Berry Colle cted: 04/29 1413 SAWSMITH Order ing Locat ion: [place] Patho logy [...] as clini grabiel chen nted. Not Available [facility] (Lab) [address] [facility], [place], [address], 05/04/2023 16:57:58 05/30/20 24 05/30/2024 IMAGE GUIDE D PAP AND HPV REGAR DLESS image guided Pap, HPV regardless of Pap result SEE RESULT S BELOW CASE REPOR T: Cytol ogy Gynec ologi dionna Repor t Case: [id number] Autho rizin g Provi castillo: Dermo dy, Danyelle , ANP, PUG MILL OPERATOR Colle cted: 05/30 1646 Order ing [...] as clini grabiel chen nted. Not Available [facility] (Lab) [address] [facility], [place], [address], 06/11/2024 18:42:54 04/01/20 20 03/31/2020 MAMMO , scree rui, bilat eral No observ ation record ed. [facility] [address], [place], [address], 04/01/2020 21:32:53 05/07/20 21 05/07/2021 MAMMO , scree rui, bilat eral No observ ation record ed. [address] Imaging [address], [place], [address], 05/15/2021 13:49:35 05/14/20 22 05/14/2022 MAMMO , scree rui, bilat eral No observ ation record ed. [address] [facility] [address], [place], [address], 04/29/2023 11:30:01 08/13/19 25 08/13/2024 imagi ng/di agnos tic resul t No observ ation record ed. [place] [address], [place], [address], 08/13/2024 14:33:30 Result Notes None recorded. Problems Name Problem SNOMED Code Status Onset Date Resolution Date Notes Provider Name and Address Organization Details Recorded Time Female genital organ symptoms 974799085 Completed 201403/30/2021 Pelvic Pain;Prac apurva ID: 0001 Noelle reeder [facility] 14:58:51 Menstrua tion finding Completed 201403/30/2021 Menorrhag ia Excessive Menstruat ion;Pract ice ID: 0001 Noelle reeder [facility] 14:59:08 Left lower quadrant pain 376385601 Completed 201403/30/2021 Abdominal pain, left lower quadrant; Practice ID: 0001 Noelle reeder [facility] 14:59:02 Uterine leiomyom a 89609859 Completed 201403/30/2021 Leiomyoma of uterus, unspecifi ed;Practi ce ID: 0001 Noelle reeder [facility] 14:59:[address] Concept Completed 201403/30/2021 Encntr for service tech/welder exam (general) (routine) w/o abn findings; Practice ID: 0001 Noelle reeder [facility] 14:59:22 Pelvic and perineal pain 988832376 Completed 201403/30/2021 Pelvic and perineal pain;Prac apurva ID: 0001 Noelle reeder [facility] 14:59:10 Finding of regulari ty of menstrua l cycle Completed 201703/30/2021 Irregular menstruat ion, unspecifi ed;Practi ce ID: 0001 Noelle reeder [facility] 14:58:58 Adult health examinat ion Completed 201303/30/2021 Routine general medical examinati on at a health care facility; Practice ID: 0001 Noelle reeder [facility] 14:58:44 Speciali zed medical examinat ion Completed 201303/30/2021 Routine gynecolog ical examinati on;Practi ce ID: 0001 Noelle reeder [facility] 14:59:24 Screenin g for malignan t neoplasm of cervix Completed 201303/30/2021 Pap Smear;Pra ctice ID: 0001 Noelle reeder [facility] 14:59:14 Screenin g for malignan t neoplasm of rectum Completed 201303/30/2021 Screening for malignant neoplasms of the rectum;Pr actice ID: 0001 Noelle reeder [facility] 14:59:[address] Concept Completed 201703/30/2021 Encntr for general adult medical exam w/o abnormal findings; Practice ID: 0001 Noelle reeder [facility] 14:59:21 Imaging result abnormal 791466083 Completed 201703/30/2021 Abnormal findings on diagnosti c imaging of body structure s;Practic e ID: 0001 Noelle Taylor [facility] 14:59:01 Finding of pattern of menstrua l cycle 842689790 Completed 201703/30/2021 Excessive and frequent menstruat ion with irregular cycle;Pra ctice ID: 0001 Noelle Taylor [facility] 14:58:55 Finding of pattern of menstrua l cycle Completed 201903/30/2021 Other specified irregular menstruat ion;Pract ice ID: 0001 Noelle Taylor [facility] 14:58:53 Pregnanc y test negative 089514578 Completed 201903/30/2021 Encounter for test, result negative; Practice ID: 0001 Noelle reeder [facility] 14:59:11 Uses combined oral contrace ption 907226495 Completed 201903/30/2021 Encounter for initial prescript ion of contracep tive pills;Pra ctice ID: 0001 Noelle Taylor [facility] 14:58:50 Mammogra phy abnormal 967484595 Completed 201303/30/2021 Unspecifi ed abnormal mammogram ;Recorded Elsewhere : No Locati on: [facility] So urce: EHR Chron ic: N Practic e ID: 0001 Bill able Time: 11:51:29 AM Noelle reeder [facility] 14:59:04 Body mass index 25-29 - overweig ht 001662513 Completed 201403/30/2021 Body mass index (BMI) 27.0-27.9 , adult;Rec orded Elsewhere : No Locati on: [facility] So urce: EHR Chron ic: N Practic e ID: 0001 Bill able Time: 08:30:00 AM Noelle Taylor [facility] 14:58:47 Evaluati on finding 404573658 Completed 201803/30/2021 Oth abn and inconclus gamaliel findings on dx imaging of breast;Re corded Elsewhere : No Locati on: [facility] So urce: EHR Chron ic: N Practic e ID: 0001 Bill able Time: 08:20:08 AM Noelle Taylor [facility] 14:58:48 Atypical glandula r cells on cervical Papanico laou smear 749952676 Completed 201103/30/2021 Abnormal glandular Papanicol aou smear of cervix;Re corded Elsewhere : No Locati on: [facility] So urce: EHR Chron ic: N Practic e ID: 0001 Bill able Time: 02:00:00 PM Noelle Taylor [facility] 14:58:45 Right lower quadrant pain 475062636 Completed 201203/30/2021 Abdominal pain, right lower quadrant; Recorded Elsewhere : No Locati on: [facility] So urce: EHR Chron ic: N Practic e ID: 0001 Bill able Time: 05:00:00 PM Noelle Taylor [facility] 14:59:13 Problem Notes None recorded. Procedures Surgical History Date Name Laterality Status Provider Name and Address Organization Details Recorded Time 04/29/20 23 Date of Last Pap Smear completed Zenia Long [facility] 05/30/2024 15:57:22 05/14/20 Date of Last Mammogram completed Chelsi Fournier [facility] 04/29/2023 09:38:57 07/04/19 22 Date of Last Colonoscopy completed Chelsi Fournier [facility] 04/29/2023 09:39:11 04/09/20 20 endometrial biopsy completed Noelle Taylor [facility] 04/26/2022 17:34:53 04/09/20 20 LAPAROSCOPIC TUBAL LIGATION AND ABLATION (SURG) completed Ashleigh Leyva [facility] 12/16/2020 13:00:25 Imaging Results Imaging Date Name Status LastModified by Organiz ation Details LastModified Time 03/31/2020 MAMMO, screening, bilateral completed [facility] [address], [place], [address], 04/01/2020 21:32:53 05/07/2021 MAMMO, screening, bilateral completed [address] [facility] [address], [place], [address], 05/15/2021 13:49:35 05/14/2022 MAMMO, screening, bilateral completed [facility] [facility] [address], [place], [address], 04/29/2023 11:30:01 08/13/2024 imaging/diagno stic result active [facility] [address], [place], [address], 08/13/2024 14:33:30 Procedure Notes None recorded. Medical Equipment None Reported. Allergies Allergen ID Allergen Name Allergen Category Reaction Reaction Severity Criticality Documentation Date Start Date Code Code System Note Provider Name and Address Organization Details Recorded Time 1856 Substance with sulfonami de structure and antibacte rial mechanism of action (substanc e) medicatio n Not available Not available Not available 02/28/2020 58006 8000 SNOMED Mari reeder [facility] 0 16:01:05 Medications Name [...] Prescrib ed Elsewher e: Yes Loca tion: [facility] odify By: keaton webb DateTime : [...] Prescrib ed Elsewher e: Yes [facility] By: fanta weller DateTime : 05/09/20 [...] Prescrib ed Elsewher e: No Locat ion: [facility] odify By: garima moore DateTime : 09/13/19 08:15:00 AM Not Available Not Available Not Available escitalop charito 5 mg/5 mL oral solution take 10 millilit er by oral route every day 03/30 completed Prescrib ed Elsewher e: Yes Loca tion: [facility] odify By: keaton webb DateTime : [...] kristen Mariano e: No Locat ion: [facility] Diane odify By: keaton webb DateTime : [...] Updated DateTime 03/31/2021 168.28 cm 24.3 kg/m2 87540.04 g 119 mm[Hg] 73 mm[Hg] [facility] 1 09:44:24 Date Recorded Body height Body mass index (BMI) Body weight Systolic blood pressure Diastolic blood pressure Provider Name and Address Organization Details Last Updated DateTime 04/27/2022 168.91 cm 27 kg/m2 32674.7 g 120 mm[Hg] 76 mm[Hg] [facility] 2 16:29:28 Date Recorded Body height Body mass index (BMI) Body weight Systolic blood pressure Diastolic blood pressure Provider Name and Address Organization Details Last Updated DateTime 04/29/2023 168.91 cm 26.9 kg/m2 39952.11 g 133 mm[Hg] 77 mm[Hg] Chelsi Fournier [facility] 3 09:37:39 Date Recorded Body height Body mass index (BMI) Body weight Systolic blood pressure Diastolic blood pressure Provider Name and Address Organization Details Last Updated DateTime 04/15/2020 170.18 cm 25.7 kg/m2 31662.15 g 108 mm[Hg] 75 mm[Hg] Rosalinda Zepeda [facility] 0 09:31:12 Date Recorded Body height Body mass index (BMI) Body weight Systolic blood pressure Diastolic blood pressure Provider Name and Address Organization Details Last Updated DateTime 05/30/2024 168.91 cm 22.1 kg/m2 50692.34 g 109 mm[Hg] 70 mm[Hg] Zenia Long [facility] 4 16:10:43 Social History Question Answer Notes LastModified by Organizat ion Details LastModified Time Tobacco Smoking Status Never Smoker Christina Sommer varinder, [facility] 04/29/2023 09:27:27 Do You [...] Or The Highest Degree You Have Received? 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 Occasional Information not available 03/30/2021 Mental Status Question Answer Note LastModified by Organization D etails LastModified Time Do you feel stressed (tense, restless, nervous, or anxious, or unable to sleep at night)? [id number] Information not available 03/31/2021 Family History Relationship Description Onset Age of this Age Resolved Age Notes LastModified by Organization Details LastModified Time Father Hypertensive disorder [email or web address] Not available 2019 16:06:25 Father Malignant neoplasm of urinary bladder [email or web address] Not available 2023 16:04:47 Paternal Uncle Hypertensive disorder jgumber Not available 2019 16:06:25 Paternal Uncle Aneurysm of heart Not available 2023 16:04:47 Paternal Grandmother Heart disease jgumber Not available 2019 16:06:47 Paternal Grandfather Heart disease jgumber Not available 2019 16:06:47 Maternal Grandmother Family history of breast cancer [email or web address] Not available 2023 16:04:47 Maternal Aunt Family history of aneurysm of blood vessel of brain [email or web address] Not available 2023 16:04:47 Maternal Aunt Family history of breast cancer [email or web address] Not available 2023 16:04:47 Maternal Grandfather Family history of aneurysm of blood 332949|[id number]||2024-11-16 10:51:00|CT_ITS|CAROLINAARIELLEPANDA|Imaging|[id number]|"Non-contrast CT scan of the Abdomen and Pelvis Clinical indication: Left flank pain Technique: 2.5 mm axial scans were obtained through the abdomen and pelvis without intravenous or or al contrast. Dose reduction technique was used on this scan by utilizing automated exposure control a nd iterative reconstruction technique. The dose-length product (DLP) was 178.53 mGy-cm. Findings: Images through the lung bases reveal no abnormalities. There is a 6 mm ovoid stone at the proximal left ureter with moderate left hydroureteronephrosis to t his level. Additional 3 mm nonobstructing left renal stone present. No right renal or right ureteral stone. No right hydronephrosis. The liver, spleen, pancreas, gallbladder, and adrenals appear normal. There is no aortic aneurysm. There is no evidence of bowel obstruction. Images through the pelvis were performed. There is no evidence of ascites or lymphadenopathy. Urinary bladder unremarkable. No pelvic mass seen. Impression: 6 mm ovoid stone at the proximal left ureter with moderate left hydronephrosis this level. Additional 3 mm nonobstructing left renal stone. Reviewed, dictated and finalized at [facility]. Impression: 6 mm ovoid stone at the proximal left ureter with moderate left hydronephrosis this level. Additional 3 mm nonobstructing left renal stone. "
--- OUTSIDE RECORDS SUMMARY | 2024-11-16 10:10 | XMS_ITS | Patient Health Record ---
Author Organization [facility] [employer] [employer] Address [address] [place] [address] Care Team Providers Care Home Office Claim Specialist Name Role Phone Harvey ROMANO, Rhina Primary Care Provider Unavaila Sea Almanzar Unavailable [phone] Migration, Provider Unavailable Unavailable Allergies Allergen (clinical [...] Severe recurrent major depression without psychotic features (87610956) Major depressive disorder, 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.2) Active confirmed Problem Generalized anxiety disorder (49714207) Generalized anxiety disorder (F41.1) Active confirmed Problem Adjustment disorder, unspecified (F43.20) Active confirmed Vital Signs Heart Rate 77 /min 07/12/2024 Height-cm 172.72 cm 07/12/2024 Blood pressure diastolic 79 mm Hg 07/12/2024 Weight-kg 63.05 kg 07/12/2024 Height 68.00 in 07/12/2024 Blood pressure systolic 115 mm Hg 07/12/2024 Weight 139 lbs 07/12/2024 BMI 21.13 kg/m2 07/12/2024 Encounters Encounter Location Date Provider Diagnosis [facility] [place] [address] [address] 12/12/2023 Sea Deepali Major depressive disorder, recurrent severe without psychotic features F33.2 ; Generalized anxiety disorder F41.1 and Adjustment disorder, unspecified F43.20 [facility] [employer] [place] [address] [address] 01/09/2024 Sea Deepali [facility] [place] [address] [address] 02/17/2024 Sea Deepali Major depressive disorder, recurrent severe without psychotic features F33.2 ; Generalized anxiety disorder F41.1 and Adjustment disorder, unspecified F43.20 [facility] [employer] [facility] [address] [address] 05/23/2024 Sea Deepali Major depressive disorder, recurrent severe without psychotic features F33.2 ; Generalized anxiety disorder F41.1 and Adjustment disorder, unspecified F43.20 [facility] [employer] [facility] [address] [address] 07/12/2024 Sea Deepali Major depressive disorder, recurrent severe without psychotic features F33.2 ; Generalized anxiety disorder F41.1 and Adjustment disorder, unspecified F43.20 [facility] [employer] [facility] [address] [address] 09/28/2024 Sea Deepali Major depressive disorder, recurrent severe without psychotic features F33.2 ; Generalized anxiety disorder F41.1 and Adjustment disorder, unspecified F43.20 [facility] [address] [facility] [address] [facility] [address] [place] [address] 11/19/2023 Provider Migration [address] [facility] [address] [place] [address] 11/20/2023 Provider Migration [address] [facility] [address] [place] [address] 04/11/2024 Sea Palumbo Generalized anxiety disorder F41.[address] [facility] [address] [place] [address] 01/09/2024 Sea Palumbo [address] [facility] [address] [place] [address] 03/07/2024 Sea Palumbo [address] [facility] [address] [place] [address] 03/09/2024 Sea Palumbo Assessments Encounter Date Diagnosis (ICD Code) Assessment Notes Treatment Notes Treatment Clinical Notes Section Notes 04/11/2024 Generalized anxiety disorder (ICD-10 - F41.1) 12/12/2023 Major depressive disorder, recurrent severe without [...] Assessment: The patient reports receiving Auvility from [facility] and has an adequate supply. She is [...] dynamics and support the patient's mental health. 12/12/2023 Generalized anxiety disorder (ICD-10 - F41.1) [...] Assessment: The patient reports receiving Auvility from [facility] and has an adequate supply. She is [...] and support the patient's mental health. 05/23/2024 Major depressive disorder, recurrent severe without [...] Dr. Palumbo after , in the July. 07/12/2024 Major depressive disorder, recurrent severe without [...] and the prescription will be sent to [facility] as needed. Follow-up - Plan: - [...] Provider can order medication once approval received. 02/17/2024 Major depressive disorder, recurrent severe without [...] reassess their mental health and overall well-being. 02/17/2024 Generalized anxiety disorder (ICD-10 - F41.1) [...] reassess their mental health and overall well-being. 09/28/2024 Generalized anxiety disorder (ICD-10 - F41.1) [...] and the prescription will be sent to [facility] as needed. Follow-up - Plan: - [...] and its impact on future living arrangements. 05/23/2024 Generalized anxiety disorder (ICD-10 - F41.1) [...] prescription to the pharmacy and coordinate with Nicole and Tanner for approval and mailing. Family Dynamics and [...] Dr. Palumbo after , in the July. 12/12/2023 Adjustment disorder, unspecified (ICD-10 - F43.20) [...] Assessment: The patient reports receiving Auvility from [facility] and has an adequate supply. She is [...] and support the patient's mental health. 05/23/2024 Adjustment disorder, unspecified (ICD-10 - F43.20) Grief and Stress Related to Mother's Passing - Assessment: Patient reports mother recently, causing stress and potential delayed grief reaction. - Plan: - Encourage patient to continue attending counseling sessions with Rivera. - Schedule a follow-up appointment after , in the week of July. Obsessive-Compu lsive Disorder (OCD) - Assessment: [...] prescription to the pharmacy and coordinate with Nicole and Tanner for approval and mailing. Family Dynamics and [...] a follow-up appointment with Dr. Deepali carrasco [place], in the July. 07/12/2024 Adjustment disorder, unspecified (ICD-10 - F43.20) [...] and the prescription will be sent to [facility] as needed. Follow-up - Plan: - [...] 09/28/2024 Adjustment disorder, unspecified (ICD-10 - F43.20) 02/17/2024 Adjustment disorder, unspecified (ICD-10 - F43.20) [...] reassess their mental health and overall well-being. 09/28/2024 Other Problem-Based Assessment and Plan Noble [...] - Refill Auvelity for 2 months through [facility] pharmacy - Utilize copay card for Auvelity to reduce cost - Continue quetiapine 25 mg PO as needed for restlessness; refill through [facility] - Follow up in 2 months Family Conflict Assessment: Patient reports significant ongoing conflict with her brother regarding their mother's estate. This includes disagreements over property, accusations of hiding information, and involvement of tiller worker. The situation is causing considerable stress and emotional distress for the patient, impacting her ability to grieve and manage other aspects of her life effectively. Plan: - Encourage continued use of stress-reductio n techniques - Advise maintaining boundaries with brother, including limited contact as needed for mental health - Suggest seeking legal entity controller if necessary to manage estate-related issues Grief [...] health issues, and navigating relationships with her iixactig-vi-oay who has autism. She expresses concern about [...] ensure accuracy, there may be errors, including ammunition and explosives handler inaccuracies and misspellings of medication names. This document should not be considered a verbatim record, and any discrepancies should be verified with the provider. Plan Of Treatment Next Appt Details Provider Name:Sea Palumbo , 11/16/2024 04:00:00 PM, [facility] [facility] [address] [facility] [address], [place], [address], Insurance Providers Payer Name Payer Address Payer Phone Subscriber Number Group Number Insured Name Patient Relationship to Insured Coverage Start Date Coverage End Date A[employer]na Pos [address] [place] [address] [id number] NOBLE BRITT Self - patient is the insured Daylin Alamo y-DNU [address] [address] [place] [address] [id number] NOBLE BRITT Self - patient is the insured Medical (General) History Medical History History ICD Code Problems: Abnormal grief reaction Attention deficit hyperactivity disorder , predominantly inattentive type Chronic post-traumatic stress disorder Generalized anxiety disorder History of SARS-CoV-2 Long-term drug therapy Severe recurrent major depression withou t psychotic features , Surgical History Surgery Date(Month/Year) Other 04/17/2020 Endometrial ablation (17165) 04/17/2020
--- OUTSIDE RECORDS SUMMARY | 2024-11-16 10:10 | XMS_ITS | Clinical Summary ---
Author Organization [facility] [employer] Address [address] [place] [address] Care Team Providers Care Route Specialist Name Role Phone Unavailable Primary Care Provider Unavailabl e Source Comments [facility] [employer],non-owned Affiliates and Associated Physician Practices is amultiple site organization consisting of ambulatory clinics and hospital sitesin [place], [place], [place] and [place]. This disclosure is being madepursuant to the Care Everywhere program and may not contain all information available regarding this patient. Last updated 18.[facility] [employer] Medications * Be aware that medications may [...] Comments Blood Pressure 110/72 06/10/2010 1:47 PM HOOK UP DRIVER Pulse 78 06/10/2010 1:47 PM HOOK UP DRIVER Temperature - - Respiratory Rate - - Oxygen Saturation - - Inhaled Oxygen Concentration - - Weight 68.9 kg (152 lb) 06/10/2010 1:47 PM HOOK UP DRIVER Height 172.7 cm (5' 8 ) 06/10/2010 1:47 PM HOOK UP DRIVER Body Mass Index 23.11 06/10/2010 1:47 PM HOOK UP DRIVER Plan of Treatment Health Maintenance Due Date [...]
== END 2024-11-16 09:59 | disposition home or self-care (01) ==
PROVIDERS: PCP Nurse Practitioner Family; Visit Provider Nurse Practitioner Family
DX: R10.9 Unspecified abdominal pain (principal); R31.9 Hematuria, unspecified; M54.50 Low back pain, unspecified; N20.0 Calculus of kidney
CPT/HCPCS: 74176

== ENCOUNTER 2024-12-13 09:32 | Outpatient (CLI) | payer OTHER, SELFPAY ==
--- NOTE | ~2024-12-13 | XR_ITS ---
Supine and upright views of the abdomen Clinical history: Left ureteral stone Findings: Bowel gas pattern is nonspecific. No evidence for obstruction or free air. Probable calcifi ed pelvic phleboliths. Distal left ureteral stone difficult to exclude. Osseous structures are intact . Impression: Probable calcified pelvic phleboliths. Distal left ureteral stone difficult to exclude. Reviewed, dictated and finalized at [facility]. Impression: Probable calcified pelvic phleboliths. Distal left ureteral stone difficult to exclude.
--- OUTSIDE RECORDS SUMMARY | 2024-12-13 10:14 | XMS_ITS | Clinical Summary ---
Author Organization [facility] Address [address] [place] [address] Care Team Providers Care Scoop Operator Name Role Phone Unavailable Primary Care Provider Unavailabl e Source Comments [facility],non-owned Affiliates and Associated Physician Practices is amultiple site organization consisting of ambulatory clinics and hospital sitesin [place], [place], [place] and [place]. This disclosure is being madepursuant to the Care Everywhere program and may not contain all information available regarding this patient. Last updated 18.[facility] Medications * Be aware that medications may [...] Comments Blood Pressure 110/72 06/10/2010 1:47 PM DIRECTOR CUSTOM Pulse 78 06/10/2010 1:47 PM DIRECTOR CUSTOM Temperature - - Respiratory Rate - - Oxygen Saturation - - Inhaled Oxygen Concentration - - Weight 68.9 kg (152 lb) 06/10/2010 1:47 PM DIRECTOR CUSTOM Height 172.7 cm (5' 8) 06/10/2010 1:47 PM DIRECTOR CUSTOM Body Mass Index 23.11 06/10/2010 1:47 PM DIRECTOR CUSTOM Plan of Treatment Health Maintenance Due Date [...]
--- OUTSIDE RECORDS SUMMARY | 2024-12-13 10:14 | XMS_ITS | Patient Health Record ---
Author Organization [facility] Address [address] [facility] [address] [place] [address] Care Team Providers Care Livestock Yard Supervisor Name Role Phone Harvey ROMANO, Rhina Primary Care Provider Sea Dent Unavailable [phone] Allergies Allergen (clinical drug ingredient) Drug/Non Drug Allergy documented on EMR Reaction Allergy Type Onset Date Status Substance with sulfonamide structure and antibacterial mechanism of action (substance) Sulfa Antibiotics Unknown Drug Allergy Active Reason For Referral No Information Medications Medication SIG (Take, Route, Frequency, Duration) Notes Start Date End Date Status QUEtiapine Fumarate 25 MG 1 tablet at bedtime Orally Once a day for 90 days As needed Active Auvelity 45-105 MG 1 tablet in the morn ing Orally twice a day for 30 days Active Immunizations Vaccine Route Administration Date Status [...] Severe recurrent major depression without psychotic features (11249800) Major depressive disorder, 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.2) Active confirmed Problem Generalized anxiety disorder (99160912) Generalized anxiety disorder (F41.1) Active confirmed Problem Adjustment disorder (92811003) Adjustment disorder, unspecified (F43.20) Active confirmed Vital Signs Heart Rate 91 /min 11/16/2024 Height-cm 172.72 cm 11/16/2024 Blood pressure diastolic 76 mm Hg 11/16/2024 Weight-kg 61.24 kg 11/16/2024 Height 68.00 in 11/16/2024 Blood pressure systolic 115 mm Hg 11/16/2024 Weight 135 lbs 11/16/2024 BMI 20.52 kg/m2 11/16/2024 Encounters Encounter Location Date Provider Diagnosis [facility] [address] [address] 01/09/2024 Sea Deepali [facility] [address] [address] 02/17/2024 Sea Deepali Major depressive disorder, recurrent severe without psychotic features F33.2 ; Generalized anxiety disorder F41.1 and Adjustment disorder, unspecified F43.20 [facility] [employer] [address] 05/23/2024 Sea Deepali Major depressive disorder, recurrent severe without psychotic features F33.2 ; Generalized anxiety disorder F41.1 and Adjustment disorder, unspecified F43.20 [facility] [place] [address] [facility] [address] [address] 07/12/2024 Sea Deepali Major depressive disorder, recurrent severe without psychotic features F33.2 ; Generalized anxiety disorder F41.1 and Adjustment disorder, unspecified F43.20 [facility] [place] [address] [facility] [address] [address] 09/28/2024 Sea Deepali Major depressive disorder, recurrent severe without psychotic features F33.2 ; Generalized anxiety disorder F41.1 and Adjustment disorder, unspecified F43.20 [facility] [place] [address] [facility] [address] [address] 11/16/2024 Sea Deepali Negative depression screening Z13.31 ; Major depressive disorder, recurrent severe without psychotic features F33.2 ; Encounter for screening for cardiovascular disorders Z13.6 ; Generalized anxiety disorder F41.1 and Adjustment disorder, unspecified F43.20 [facility] [place] [address] [address] 04/11/2024 Sea Palumbo Generalized anxiety disorder F41.1 [facility] [address] [facility] [address] [facility] [address] [place] [address] 01/09/[address] [facility] [address] [facility] [address] [facility] [address] [place] [address] 03/07/[address] [facility] [address] [facility] [address] [facility] [address] [place] [address] 03/09/2024 Sea Palumbo Assessments Encounter Date Diagnosis [...] Rivera. - Schedule a follow-up appointment after [place], in the July. Obsessive-Compu lsive Disorder (OCD) [...] a follow-up appointment with Dr. Deepali carrasco [place], in the week of July. 02/17/2024 Major depressive disorder, recurrent severe without [...] and the prescription will be sent to [facility] as needed. Follow-up - Plan: - [...] Provider can order medication once approval received. 11/16/2024 Major depressive disorder, recurrent severe without psychotic features (ICD-10 - F33.2) Electronic Prior Authorization was requested for Auvelity 45-105 MG Tablet Extended Release. Provider can order medication once approval received. 11/16/2024 Negative depression screening (ICD-10 - Z13.31) 11/16/2024 Encounter for screening for cardiovascular disorders (ICD-10 - Z13.6) 09/28/2024 Generalized anxiety disorder (ICD-10 - F41.1) [...] and the prescription will be sent to [facility] as needed. Follow-up - Plan: - [...] reassess their mental health and overall well-being. 05/23/2024 Generalized anxiety disorder (ICD-10 - F41.1) [...] a follow-up appointment with Dr. Deepali carrasco [place], in the July. 05/23/2024 Adjustment disorder, unspecified [...] a follow-up appointment with Dr. Deepali carrasco [place], in the July. 02/17/2024 Adjustment disorder, unspecified (ICD-10 - [...] - Assessment: Patient requires a letter for [employer] underwriters regarding their previous Spravato treatment for grief. - Plan: Obtain a release of information from the patient and provide the requested letter to the [employer] insurance company. Family Adjustment and Support - [...] and the prescription will be sent to [facility] as needed. Follow-up - Plan: - [...] 09/28/2024 Adjustment disorder, unspecified (ICD-10 - F43.20) 11/16/2024 Generalized anxiety disorder (ICD-10 - F41.1) 11/16/2024 Adjustment disorder, unspecified (ICD-10 - F43.20) 09/28/2024 Other Problem-Based Assessment and Plan Noble Britt, female, presents with significant stress related to family conflicts, grief, and managing multiple personal responsibilities . Adjustment Disorder with Mixed Anxiety and Depressed Mood Assessment: Patient reports experiencing high levels of stress due to ongoing family conflicts, particularly with her brother regarding their mother's estate. She describes feeling overwhelmed by various responsibilities , including managing her children's emotional needs, supporting [...] - Refill Auvelity for 2 months through [facility] - Utilize copay card for Auvelity to reduce cost - Continue quetiapine 25 mg PO as needed for restlessness; refill through [facility] - Follow up in 2 months Family Conflict Assessment: Patient reports significant ongoing conflict with her brother regarding their mother's estate. This includes disagreements over property, accusations of hiding information, and involvement of nurse practitioner physicians assistant. The situation is causing considerable stress and emotional distress for the patient, impacting her ability to grieve and manage other aspects of her life effectively. Plan: - Encourage continued use of stress-reduction techniques - Advise maintaining boundaries with brother, including limited contact as needed for mental health - Suggest seeking phone counselor if necessary to manage estate-related issues Grief [...] health issues, and navigating relationships with her rsuhcprx-dp-mek who has autism. She expresses concern about [...] patient to prioritize self-care while managing family responsibilities Disclaimer: This note has been transcribed using speech recognition software and serves as a reflection of the patient's visit. While efforts have been made to ensure accuracy, there may be errors, including eye care professional inaccuracies and misspellings of medication names. This document should not be considered a verbatim record, and any discrepancies should be verified with the provider. 11/16/2024 Other Noble Britt, female patient with a history of kidney stones, presents with recurrent kidney stones, pain, and concerns about medication side effects and kidney function. Recurrent Nephrolithiasis Assessment: Patient reports recurrence of kidney stones, confirmed today. History of previous kidney stone at age 12. Current episode started last week. Patient suspects a hormonal connection, noting the timing coincides with perimenopause. Previous stone was uric acid, which runs in the family. Dehydration is considered as a potential contributing factor. Patient reports low kidney function, raising concerns about possible lupus, which has been previously investigated. Current medication for kidney stones is causing dizziness and altered mental status. Plan: - Continue current medication for kidney stones (specific medication not mentioned) - Advise increased fluid intake to prevent dehydration - Recommend follow-up with primary care or urology for comprehensive kidney stone management - Consider referral for hormonal evaluation given patient's suspicion of perimenopausal influence - Monitor kidney function - Educate patient on kidney stone prevention strategies Medication Management - Auvelity Assessment: Patient is currently taking Auvelity, prescribed in September. Patient inquires about potential implications of Auvelity on kidney function, especially in light of current kidney issues. Plan: - Continue Auvelity as prescribed (current prescription valid until December 21) - Assess for any potential interactions between Auvelity and kidney stone medication - Schedule follow-up appointment for early February - Plan to send 90-day prescription at next appointment Recent Family Stressor Assessment: Patient reports recent traumatic experience related to father's unexpected open-heart surgery on Good Tuesday. However, father is now doing well. Plan: - Continue to monitor patient's emotional state in relation to family stressor - Provide supportive counseling as needed Disclaimer: This note has been transcribed using speech recognition software and serves as a reflection of the patient's visit. While efforts have been made to ensure accuracy, there may be errors, including eye care professional inaccuracies and misspellings of medication names. This document should not be considered a verbatim record, and any discrepancies should be verified with the provider. Plan Of Treatment Next Appt Details Provider Name:Sea Padilla Deepali , 02/15/2025 04:30:00 PM, [address], [place], [address], Insurance Providers Payer Name Payer Address Payer Phone Subscriber Number Group Number Insured Name Patient Relationship to Insured Coverage Start Date Coverage End Date A[employer]na Pos [address] [place] [address] [id number] NOBLE BRITT Self - patient is the insured Daylin Diggs [address] [address] [place] [address] [id number] NOBLE BRITT Self - patient is the insured Medical (General) History Medical History History ICD Code Problems: Abnormal grief reaction Attention deficit hyperactivity disorder , predominantly inattentive type Chronic post-traumatic stress disorder Generalized anxiety disorder History of SARS-CoV-2 Long-term drug therapy Severe recurrent major depression withou t psychotic features , Surgical History Surgery Date(Month/Year) Other 04/17/2020 Endometrial ablation (32729) 04/17/2020
--- OUTSIDE RECORDS SUMMARY | 2024-12-13 10:15 | XMS_ITS | Data Portability ---
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 [email or web address] Not available 05/30/2024 15:56:55 Plan of Treatment Reminders Order Date Submit Date Provider Last Modified By Organization Details Last Modified Time Details Appointments None recorded. Lab pap, IG + HR HPV - HPV regardless but if HPV is positive need subtyping 16,18/45 2023 024 [facility] (Lab), [address], [place], [address], 18:42:54 lh + FSH, serum 2021 022 [facility], [address], [place], [address], 2 15:16:07 estradiol, serum 2021 022 [facility], [address], [place], [address], 2 15:16:07 Referral None recorded. Procedures colonoscopy screening (PROC) [address] [facility], [address], [place], [address], 4 16:41:26 Surgeries None recorded. Imaging MAMMO, screening, digital, bilateral 2023 024 [facility], [address], [place], [address], 5 05:00:47 MAMMO, screening, bilateral [address], [address], [place], [address], 4 16:16:03 Medication Orders Prometrium 100 mg capsule 2020 021 [id number], [address] [facility], [place], [place], [id number], 3 09:38:16 Patient TargetsNo targets recorded. Patient InstructionsNo instructions recorded. Reason for Referral None Reported. Results Created Date Observation Date Name Description Value Unit Range Abnormal Flag Note LastModifiedBy Organization Detail LastModifiedTime 08/21/19 21 08/21/2020 , kailey howard md interpretati on Not Available Wade choe [address], [place], [address], 03/05/2020 10:38:28 04/27/20 22 04/27/2022 IMAGE GUIDE D PAP AND HPV REGAR DLESS image guided Pap, HPV regardless of Pap result SEE RESULT S BELOW CASE REPOR T: Cytol ogy Gynec ologi dionna Repor t Case: [id number] Autho nba odonnell Provi castillo: Fabiano butler , Mattie Landin cted: 04/27 1709 DATASTAGE ARCHITECT Order ing Locat ion: [place] Patho logy [...] as clini grabiel chen nted. Not Available [facility] [address] [place], [address], 05/03/2022 14:46:33 04/29/20 23 04/29/2023 IMAGE GUIDE D PAP AND HPV REGAR DLESS image guided Pap, HPV regardless of Pap result SEE RESULT S BELOW CASE REPOR T: Cytol ogy Gynec ologi dionna Repor t Case: [id number] Autho nba odonnell Provi castillo: Mika Berry Colle cted: 04/29 1413 DATASTAGE ARCHITECT Order ing Locat ion: [place] Patho logy [...] as clini grabiel chen nted. Not Available [facility] (Lab) [address] [facility], [place], [address], 05/04/2023 16:57:58 05/30/20 24 05/30/2024 IMAGE GUIDE D PAP AND HPV REGAR DLESS image guided Pap, HPV regardless of Pap result SEE RESULT S BELOW CASE REPOR T: Cytol ogy Gynec ologi dionna Repor t Case: [id number] Autho rizin g Provi castillo: Dermo dy, Danyelle , ANP, BANQUET ATTENDANT Colle cted: 05/30 1646 Order ing Locat [...] NOTE: The Pap Test is a scree uri test with an inher ent false negat [...] as clini grabiel chen nted. Not Available [facility] (Lab) [address] [facility], [place], [address], 06/11/2024 18:42:54 04/01/20 20 03/31/2020 MAMMO , scree rui, bilat eral No observ ation record ed. [facility] [address], [place], [address], 04/01/2020 21:32:53 05/07/20 21 05/07/2021 MAMMO , scree rui, bilat eral No observ ation record ed. [address] [facility] [address], [place], [address], 05/15/2021 13:49:35 05/14/20 22 05/14/2022 MAMMO , scree rui, bilat eral No observ ation record ed. [address] [facility] [address], [place], [address], 04/29/2023 11:30:01 08/13/19 25 08/13/2024 imagi ng/di agnos tic resul t No observ ation record ed. [facility] [address], [place], [address], 08/13/2024 14:33:30 Result Notes None recorded. Problems Name Problem SNOMED Code Status Onset Date Resolution Date Notes Provider Name and Address Organization Details Recorded Time Female genital organ symptoms 294117045 Completed 201403/30/2021 Pelvic Pain;Prac apurva ID: 0001 Noelle reeder [facility] 14:58:51 Menstrua tion finding Completed 201403/30/2021 Menorrhag ia Excessive Menstruat ion;Pract ice ID: 0001 Noelle reeder [facility] 14:59:08 Left lower quadrant pain 410767709 Completed 201403/30/2021 Abdominal pain, left lower quadrant; Practice ID: 0001 Noelle reeder [facility] 14:59:02 Uterine leiomyom a 28246304 Completed 201403/30/2021 Leiomyoma of uterus, unspecifi ed;Practi ce ID: 0001 Noelle reeder [facility] 14:59:[address] Concept Completed 201403/30/2021 Encntr for candle wicker exam (general) (routine) w/o abn findings; Practice ID: 0001 Noelle reeder [facility] 14:59:22 Pelvic and perineal pain 622459353 Completed 201403/30/2021 Pelvic and perineal pain;Prac apurva ID: 0001 Noelle reeder [facility] 14:59:10 Finding of regulari ty of menstrua l cycle Completed 201703/30/2021 Irregular menstruat ion, unspecifi ed;Practi ce ID: 0001 Noelle reeder [facility] 14:58:58 Adult health examinat ion Completed 201303/30/2021 Routine general medical examinati on at a health care facility; Practice ID: 0001 Noelle reeder [facility] 14:58:44 Speciali zed medical examinat ion Completed 201303/30/2021 Routine gynecolog ical examinati on;Practi ce ID: 0001 Noelle reeder [facility] 14:59:24 Screenin g for malignan t neoplasm of cervix Completed 201303/30/2021 Pap Smear;Pra ctice ID: 0001 Noelle reeder [facility] 14:59:14 Screenin g for malignan t neoplasm of rectum Completed 201303/30/2021 Screening for malignant neoplasms of the rectum;Pr actice ID: 0001 Noelle reeder [facility] 14:59:[address] Concept Completed 201703/30/2021 Encntr for general adult medical exam w/o abnormal findings; Practice ID: 0001 Noelle reeder [facility] 14:59:21 Imaging result abnormal 525047752 Completed 201703/30/2021 Abnormal findings on diagnosti c imaging of body structure s;Practic e ID: 0001 Noelle Taylor [facility] 14:59:01 Finding of pattern of menstrua l cycle 318847462 Completed 201703/30/2021 Excessive and frequent menstruat ion with irregular cycle;Pra ctice ID: 0001 Noelle Taylor [facility] 14:58:55 Finding of pattern of menstrua l cycle Completed 201903/30/2021 Other specified irregular menstruat ion;Pract ice ID: [address] [facility] 14:58:53 Pregnanc y test negative 568449135 Completed 201903/30/2021 Encounter for test, result negative; Practice ID: 0001 Noelle reeder [facility] 14:59:11 Uses combined oral contrace ption 193786183 Completed 201903/30/2021 Encounter for initial prescript ion of contracep tive pills;Pra ctice ID: [address] [facility] 14:58:50 Mammogra phy abnormal 152186422 Completed 201303/30/2021 Unspecifi ed abnormal mammogram ;Recorded Elsewhere : No Locati on: [facility] So urce: EHR Chron ic: N Practic e ID: 0001 Bill able Time: 11:51:29 AM Noelle reeder [facility] 14:59:04 Body mass index 25-29 - overweig ht 942516595 Completed 201403/30/2021 Body mass index (BMI) 27.0-27.9 , adult;Rec orded Elsewhere : No Locati on: [facility] So urce: EHR Chron ic: N Practic e ID: 0001 Bill able Time: 08:30:[address] [facility] 14:58:47 Evaluati on finding 037302662 Completed 201803/30/2021 Oth abn and inconclus gamaliel findings on dx imaging of breast;Re corded Elsewhere : No Locati on: [facility] So urce: EHR Chron ic: N Practic e ID: 0001 Bill able Time: 08:20:08 AM Noelle Taylor [facility] 14:58:48 Atypical glandula r cells on cervical Papanico laou smear 474782827 Completed 201103/30/2021 Abnormal glandular Papanicol aou smear of cervix;Re corded Elsewhere : No Locati on: [facility] So urce: EHR Chron ic: N Practic e ID: 0001 Bill able Time: 02:00:00 PM Noelle Taylor [facility] 14:58:45 Right lower quadrant pain 066666836 Completed 201203/30/2021 Abdominal pain, right lower quadrant; Recorded Elsewhere : No Locati on: [facility] So urce: EHR Chron ic: N Practic e ID: 0001 Bill able Time: 05:00:[address] [facility] 14:59:13 Problem Notes None recorded. Procedures Surgical History Date Name Laterality Status Provider Name and Address Organization Details Recorded Time 04/29/20 23 Date of Last Pap Smear completed Zenia Long [facility] 05/30/2024 15:57:22 05/14/20 Date of Last Mammogram completed Chelsi Fournier [facility] 04/29/2023 09:38:57 07/04/19 22 Date of Last Colonoscopy completed Chelsi Fournier [facility] 04/29/2023 09:39:11 04/09/20 20 endometrial biopsy completed Noelle Taylor [facility] 04/26/2022 17:34:53 04/09/20 20 LAPAROSCOPIC TUBAL LIGATION AND ABLATION (SURG) completed Ashleigh Leyva [facility] 12/16/2020 13:00:25 Imaging Results None recorded. Procedure Notes None recorded. Medical Equipment None Reported. Allergies Allergen ID Allergen Name Allergen Category Reaction Reaction Severity Criticality Documentation Date Start Date Code Code System Note Provider Name and Address Organization Details Recorded Time 1856 Substance with sulfonami de structure and antibacte rial mechanism of action (substanc e) medicatio n Not available Not available Not available 02/28/2020 88674 8003 SNOMED Mari reeder [facility] 16:01:05 Medications Name Sig Start Date Stop [...] Prescrib ed Elsewher e: Yes Loca tion: [facility] odify By: keaton webb DateTime : 06/21/20 [...] Prescrib ed Elsewher e: Yes Loca tion: [facility] odify By: fanta weller DateTime : [...] Prescrib ed Elsewher e: No Locat ion: [facility] odify By: scannon Encounte r DateTime : 09/13/19 08:15:00 AM Not Available Not Available Not Available escitalop charito 5 mg/5 mL oral solution take 10 millilit er by oral route every day 03/30 completed Prescrib ed Elsewher e: Yes [facility]: keaton webb DateTime : 07/12/19 [...] Prescrib ed Elsewher e: No Locat ion: [facility] odify By: keaton webb DateTime : 06/15/20 [...] Updated DateTime 03/31/2021 168.28 cm 24.3 kg/m2 74901.04 g 119 mm[Hg] 73 mm[Hg] Noelle [facility] 1 09:44:24 Date Recorded Body height Body mass index (BMI) Body weight Systolic blood pressure Diastolic blood pressure Provider Name and Address Organization Details Last Updated DateTime 04/15/2020 170.18 cm 25.7 kg/m2 80951.15 g 108 mm[Hg] 75 mm[Hg] Rosalinda Zepeda [facility] 0 09:31:12 Date Recorded Body height Body mass index (BMI) Body weight Systolic blood pressure Diastolic blood pressure Provider Name and Address Organization Details Last Updated DateTime 04/27/2022 168.91 cm 27 kg/m2 30579.7 g 120 mm[Hg] 76 mm[Hg] Noelle [facility] 2 16:29:28 Date Recorded Body height Body mass index (BMI) Body weight Systolic blood pressure Diastolic blood pressure Provider Name and Address Organization Details Last Updated DateTime 04/29/2023 168.91 cm 26.9 kg/m2 44907.11 g 133 mm[Hg] 77 mm[Hg] Chelsi Fournier [facility] 3 09:37:39 Date Recorded Body height Body mass index (BMI) Body weight Systolic blood pressure Diastolic blood pressure Provider Name and Address Organization Details Last Updated DateTime 05/30/2024 168.91 cm 22.1 kg/m2 50510.34 g 109 mm[Hg] 70 mm[Hg] Zenia Mercedes [facility] 4 16:10:43 Social History Question Answer Notes LastModified by Organizat ion Details LastModified Time Tobacco Smoking Status Never Smoker [facility] 04/29/2023 09:27:27 [...] Or The Highest Degree You Have Received? [id number] Information not available 03/31/2021 Are There Any [...] not available 03/30/2021 What is your occupation? [employer] Work[employer] Information not available 03/31/2021 What is your exercise level? Occasional Information not available 03/30/2021 Mental Status Question Answer Note LastModified by Organization D etails LastModified Time Do you feel stressed (tense, restless, nervous, or anxious, or unable to sleep at night)? [id number] Information not available 03/31/2021 Family History Relationship Description Onset Age of this Age Resolved Age Notes LastModified by Organization Details LastModified Time Father Hypertensive disorder [email or web address] Not available 2019 16:06:25 Father Malignant neoplasm of urinary bladder [email or web address] Not available 2023 16:04:47 Paternal Uncle Hypertensive disorder jgumber Not available 2019 16:06:25 Paternal Uncle Aneurysm of heart [email or web address] Not available 2023 16:04:47 Paternal Grandmother Heart disease jgumber Not available 2019 16:06:47 Paternal Grandfather Heart disease jgumber Not available 2019 16:06:47 Maternal Grandmother Family history of breast cancer [email or web address] Not available 2023 16:04:47 Maternal Aunt Family history of aneurysm of blood vessel of brain [email or web address] Not available 2023 16:04:47 Maternal Aunt Family history of breast cancer [email or web address] Not available 2023 16:04:47 Maternal Grandfather Family history of aneurysm of blood vessel of brain Not available 2023 16:04:47 Mother Family history of breast cancer [email or web address] Not available 2023 16:04:47 Medical History Condition [...] SNOMED-CT Code Diagnosis ICD10 Code Diagnosis Note [id number] Leticia Barrera , [facility] [address] [address] 03/03/2020 09:18:18 03/03/2020 10:11:03 Gynecologic examination 52947102 Z01.419 Suggested Calcium with Vitamin D 1200-1500m g daily. Patient advised to get an annual flu shot in the fall and she could obtain at [facility] or [facility] care clinic. Also to obtain TDap [...] to this email. Abnormal u terine bleeding [id number] 9100 N93.9 R10.2 Patient has has hx [...] [place]. [id number] Tony Patel MD [facility] [address] [address] 03/05/2020 09:36:44 03/05/2020 10:59:53 Abnormal uterine bleeding 9911262397 9100 N93.9 [id number] Tony Patel MD [facility] [address] [address] 03/17/2020 16:28:43 03/17/2020 18:12:36 Menorrhagia 099138886 N92.0 Uterine leiomyoma 665983 05 D25.9 This patient is a 49-year-ol [...] will go ahead and schedule the procedure. [id number] MD Dia Chapman [address],[facility] [place] [address] 04/04/2020 17:21:05 04/05/2020 12:13:07 Abnormal uterine bleeding 5568062288 9100 N93.9 Menorrhagia 324785673 N9 2.0 this patient is a 50-year-ol d female presents for preoperati ve care. She has menorrhagi a and abnormal uterine bleeding. We have agreed to perform laparoscop ic bilateral tubal ligation and endometria l ablation with hysterosco py. She understand s the risks, benefits, and alternativ es. She has completed the informed consent process and is ready to proceed [id number] Tony Patel MD [facility] [address] [address] 04/10/2020 09:04:28 04/10/2020 09:06:16 [id number] Tony Patel MD [facility] [address] [address] 04/15/2020 09:07:48 04/15/2020 09:56:50 Postoperative care 793106560 Z48.89 This patient is a 50-year-ol d [...] and intact. She has no complaints . [id number] [facility] [address] [address] 03/31/2021 09:16:32 03/31/2021 10:15:18 Gynecologic examination 83494208 Z01.419 Suggested Calcium with Vitamin D 1200-1500m g daily. Patient advised to get an annual flu shot in the fall and she could obtain at [facility] or [facility] care clinic. Also to obtain TDap [...] neoplasm of breast in first degree relative 086296529 Z80.3 Pts mother had Estrogen responsive tumor & was placed on TamoxifenW e discussed genetic testing today & previously ; but opts to defer for now.Dealin g the the very recent loss of her spouse (1wk ago) from cancer. Night sweats 39374907 R6 1 Trial for night sweats.On SSRI [...] will send update & we can refill. [id number] Leticia Barrera , [facility] [address] [address] 04/27/2022 15:56:08 04/27/2022 16:51:58 Gynecologic examination 04731330 Z01.419 Suggested Calcium with Vitamin D 1200-1500m g daily. Patient advised to get an annual flu shot in the fall and she could obtain at [facility] or [facility] take care clinic. Also to obtain TDap [...] Screen naRoutine Labs PCPMammo ordered Menopausal symptom 46196 002 N95.1 [facility] taste in mouth is a menopause sx as it seems to be cyclic.PCP has worked her up for other issues [id number] Leticia Barrera , [facility] [address] [address] 04/29/2023 09:26:16 04/29/2023 13:00:06 Gynecologic examination 16054338 Z01.419 Z11.51 Suggested Calcium with Vitamin D 1200-1500m g daily. Patient advised to get an annual flu shot in the fall and she could obtain at [facility] or [facility] take care clinic. Also to obtain TDap [...] naRoutine Labs PCPMammo ordered Screening mammography 24 041876 Z12.31 Menopausal symptom 61900 002 N95.1 Having some vasomotor sx's more [...] migraine w/ visual changes, breast cancer dx, GA/stroke, DVT/PE, Endometria l cancer. Please contact office with any new or worsening side effects or adverse reactions. Or if a medical emergency please go to nearest ED/[facility] for further evaluation . [id number] Tony Patel MD [facility] [address] [address] 05/30/2024 16:03:46 05/30/2024 16:44:50 Gynecologic examination 71665533 Z01.419 Annual gynecologi dionna exam performed. Patient [...] STI testing - declined Screening colonoscopy 44 1685629 Z12.11 GI referral Screening mammography 24 296579 Z12.31 Family his tory of breast cancer 155154372 Z80.3 We discussed genetic screening with Jeanna [...] Member ID [id number] Member ID Guarantor Name 05/30/2024 2 () Mari Toussaint [id number] Mari Toussaint 03/31/2021 1 [employer] [id number] Gallito Toussaint [id number] Mari Toussaint 05/30/2024 1 [employer] (POS) [id number] Mari Toussaint [id number] Mari Toussaint Notes Date Note Type Note [...] complaints. Tony Patel MD [address], [place], [address], , P[facility] 04/15/2020 09:52:38 03/31/2021 text/html Annual GYNReport [...] mammogram; Up to date on colonoscopy screening ANDREINA Garcia- [address], [place], [address], , P.C[facility] 03/31/2021 10:12:16 04/27/2022 text/html Annual GYNReport [...] mammogram; Up to date on colonoscopy screening ANDREINA Garcia-[facility] [address], [place], [address], , P.C[facility] 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 DANYELLE GILLETTE, [facility] [address], [place], [address], , P.C. 05/30/2024 16:43:25 OBGyn Episode Ob Episode Information Episode Created Date Number of Fetuses Patient Bloodtype Patient rh Status Prepregnancy Weight lbs Domestic Partner Domestic Partner Phone Father Name Undercutter Operator Status 03/03/20 20 1 CLOSED Fetus Data [...] Domestic Partner Domestic Partner Phone Father Name Undercutter Operator Status 03/03/20 20 1 CLOSED Fetus Data [...]
== END 2024-12-13 09:33 | disposition home or self-care (01) ==
PROVIDERS: PCP Nurse Practitioner Family; Visit Provider Urology
DX: N20.1 Calculus of ureter (principal)
CPT/HCPCS: 74018